=== PATIENT | female | born 1995 | race African-American/Black ===

== ENCOUNTER 2016-08-12 15:17 | Inpatient (IN) ==
[2016-08-12] MEDS ORDERED: SODIUM CHLORIDE 0.9% 1,000 ML IV STA (16:14)
[2016-08-12] MEDS ORDERED: HYDROmorphone 2 MG/1 ML VIAL IV STA (16:14)
[2016-08-12] MEDS ORDERED: ONDANSETRON 4 MG/2 ML VIAL ONE (16:20)
[2016-08-12] MEDS ORDERED: HYDROmorphone 2 MG/1 ML VIAL ONE (16:21)
[2016-08-12 16:22] LABS: Basophils # 0.1 10*3/uL (0.0-0.2); Basophils % 0.7 % (0.0-0.8); Eosinophils # 0.3 10*3/uL (0.0-0.87); Eosinophils % 2.1 % (0.00-10.9); Hemoglobin 6.6 GM/DL (12.0-16.0); Immature Granulocytes % 0.4 %; Immature Granulocytes Absolute 0.05 #; Lymphocytes # 4.3 10*3/uL (1.4-4.0); Lymphocytes % 31.8 % (21.3-54.2); Mean Corpuscular HGB Conc 34.7 GM/DL (32-36); Mean Corpuscular Hemoglobin 34 PG (27-34); Mean Corpuscular Volume 96.9 FL (87-102); Mean Platelet Volume 9.8 FL (9.6-12.0); Monocytes # 1.4 10*3/uL (0.11-0.8); Neutrophils # 7.5 10*3/uL (1.4-7.4); Platelet Count 575 T/CUMM (130-400); Red Blood Count 1.96 MC/CUMM (3.8-5.5); Red Cell Distribution Width 21.2 % (9.3-17.3); White Blood Count 13.6 T/CUMM (4-12)
[2016-08-12 16:40] LABS: Albumin 3.6 G/DL (3.4-5.0); Bilirubin,Direct 0.5 MG/DL (0.0-0.20); Bilirubin,Total 7.5 MG/DL (0.2-1.0); Calcium 8.7 MG/DL (8.5-10.1); Osmolality,Calculated 287.6 MOS/KG (273-304); Potassium 4.7 MMOL/L (3.5-5.1); Total Protein 7.3 G/DL (6.4-8.3)
[2016-08-12 16:44] LABS: Apearance,Urine CLEAR (Clear); Bilirubin,Urine Negative (Negative); Blood, Urine Small mg/dL (Negative); Glucose,Urine (UA) Negative (Negative); Ketones,Urine Negative (Negative); Nitrite,Urine Negative (Negative); Protein,Urine Negative; RBC,Urine 1 /HPF (0-4); Squamous Epithelial Cell,Urine Occasional /HPF (0-10); Urine Color Yellow (Yellow); Urine Specific Gravity 1.009 (1.001-1.035); WBC,Urine 2 /HPF (0-6)
--- NOTE | 2016-08-12 17:50 | Emergency Department Note ---
Andrew Harrison Jamie, am scribing for, and in the presence of, Man Buckner MD 16:10. Dudley Harrison Doug C, MD, personally performed the services described in this documentation, ascribed by Clemente Morales in my presence, and it is both accurate and complete [id number] . Arrival - Arrival Chief Complaint: Sickle Cell Stated Complaint: SICKLE CELL ANEMIA ED Nursing Triage Note: c/o pain all over/scc that started Saturday. hx:SC Mode of Arrival: Ambulatory Limitations: No Limitations Source: Patient, RN Notes Reviewed - History of Present Illness HPI Narrative: Patient is a 20-year-old black female who has sickle cell anemia who presents emergency room complaining of lower extremity pain that started 3 days ago. Patient states she has not had any fever or chills. She denies nausea, vomiting or diarrhea. She does not have any abdominal pain, cough, shortness of breath or wheezing. She has not had any bleeding. She states her pain is typical of her prior painful crisises. Patient denies any joint swelling in none of her joints are hot to the touch. Onset (ago): day(s) (2) Consistency: constant Severity: moderate Allergies/Adverse Reactions: Allergies Allergy/AdvReac Type Severity Reaction Status Date / Time diphenhydramine Allergy ITCHING Verified 05/07/16 15:57 [From Benadryl] morphine Allergy SHORTNESS Verified 05/07/16 15:57 OF BREATH ondansetron Allergy HIVES Verified 05/07/16 15:57 [From Zofran (as hydrochloride)] Home Medications: Home Medications Medication Instructions Recorded Confirmed Type Folic Acid Tab 1 mg PO DAILY tablet 11/17/15 08/12/16 Rx Hydroxyurea [Hydrea] 500 mg PO BID #60 capsule 02/13/16 08/12/16 Rx Docusate/Senna 50-8.6 [Senokot S] 2 tablet PO DAILY PRN #7 tablet 07/01/1608/12 Rx Oxycodone HCl/Acetaminophen 1 each PO Q6H PRN #20 tablet 07/01/16 08/12/16 Rx [Percocet 10-325 mg Tablet] Ergocalciferol [Drisdol] 50,000 unit PO WE 08/12/16 08/12/16 History Review of System - Review of System 12 point system: reviewed and no additional remarkable complaints except as stated - Review of System Constitutional: Absent: chills, diaphoresis, fever, weakness Eyes: Absent: vision change Respiratory: Absent: cough Cardiovascular: Absent: chest pain Gastrointestinal: Absent: abdominal pain, nausea, vomiting, diarrhea, constipation Musculoskeletal: Present: leg pain (Bilateral), other (Bilateral hip pain). Absent: joint swelling Skin: Absent: rash, change in color Neurological: Absent: headache, weakness, numbness, confusion Hematological/Lymphatic: Absent: easy bleeding, easy bruising Medical,Surgical,& Family Hx - Medical History Psychological: History of: Anxiety Disorders, Depression No history of: ADHD, Behavior Problems, Bipolar Disorder, Previous Suicide Attempt, Psychiatric/Substance Abuse Tx, Schizophrenia, Violent Behavior, Psychiatric Problems HEENT: History of: Ear Problem (Ear infection left ear) Endocrine: History of: Endocrine Problems (amenorrhea) Rheumatology: History of;: Psoriasis (itching) No history of;: Fibromyalgia, Gout, Myasthenia Gravis, Rheumatoid Arthritis, Rheumatological Problems Respiratory: History of: Bronchitis No history of: Asthma, COPD, Intubation, Obstructive Sleep Apnea, Pulmonary Embolism, Pulmonary Hypertension, Pneumonia, Lung Cancer, Respiratory Problems ( history of remote acute lung syndrome) Gastrointestinal: History of: GI Problems (HX OF SEVERE CONSTIPATION, OBSTIPATION NOW. DUE TO HYDROCODONE.) No history of: Bowel Obstruction, Clostridium Difficile, Crohn's Disease, Diverticulitis/ Diverticulosis, Esophageal Varices, GERD, Gastrointestinal Bleed , Hemorrhoids, Hematochezia, Hepatitis, Liver Problems, Pancreatitis, Polyps, Ulcerative Colitis, Gastrointestinal Cancer Musculoskeletal: History of: Musculoskeletal Problems (SEVERE PAIN IN SKELETAL PART OF HIPS, LEGS, BACK, CHEST.) No history of: Amputation, Back/Neck Problems, Degenerative Disk Disease, Herniated Disk, Osteoporosis, Musculoskeletal Cancer Hematology: History of: Anemia, Sickle Cell Disease No history of: Blood Transfusion Reaction, Bleeding Problems, Clotting Problems, Hematologic Cancer, Blood Disorders Reproductive: History of: Reproductive Problems - Surgical History Thoracic Surgeries: Patient denies;: Organ Transplant, Lobectomy Neurologic Surgeries: Patient denies: Neurologic Surgery HEENT Surgeries: Patient denies: Eye Surgery, Thyroid Surgery, Tonsilectomy & Adenoidectomy Abdominal Surgeries: Surgical HX of: Abdominal Surgery, Cholecystectomy (jan 04, 2006) Patient denies: Appendectomy, Colonoscopy, Gastric Bypass Surgery, EGD, Hernia Repair Reproductive Surgeries: Patient denies;: Breast Surgery, Section, Dilation and Curettage, Gynecologic Surgery, Hysterectomy, Tubal Ligation Orthopedic Surgeries: Patient denies;: Implanted Devices, Orthopedic Surgery, Spinal Surgery, Total Hip Replacement, Total Knee Replacement - Family History Family History: Reports;: Family Cancer (maternal grandmother lung) Denies;: Family Anesthesia Reaction, Family Diabetes, Family Heart Disease, Family Hypertension, Family Psychiatric Problems, Family Stroke - Social History Smoking Status: Never smoker Frequency of Alcohol Use: None Type of Drug Use: None Exam Vital Signs: Vital Signs Temperature 98.4 F 08/12/16 16:15 Pulse Rate 69 08/12/16 17:15 Respiratory Rate 18 08/12/16 17:15 Blood Pressure 94/57 08/12/16 17:15 O2 Sat by Pulse Oximetry 100 08/12/16 17:15 - General General appearance: alert, in no apparent distress - Head Head exam: Present: atraumatic, normocephalic, normal inspection - Eye Eye exam: Present: normal appearance, PERRL, EOMI, scleral icterus - ENT ENT exam: Present: normal oropharynx, mucous membranes moist. Absent: normal exam - Neck Neck exam: Present: normal inspection, full ROM - Chest Chest inspection: Present: normal inspection, symmetric chest wall rise - Respiratory Respiratory exam: Present: normal lung sounds bilaterally - Cardiovascular Cardiovascular exam: Present: regular rate, normal rhythm, tachycardia, normal heart sounds - Abdominal Exam Abdominal exam: Present: soft, normal bowel sounds - Extremities Exam Extremities exam: Present: normal inspection, full ROM - Neurological Exam Neurological exam: Present: alert, oriented X3, CN II-XII intact. Absent: motor sensory deficit - Psychiatric Psychiatric exam: Present: normal affect, normal mood - Skin Skin exam: Present: warm, dry, intact, normal color Course Course Narrative: Patient's clinical presentation, laboratory and radiographic findings were discussed with Patrizia who is covering the hospitalist service. She will see the patient in the emergency room and evaluate for admission. Results - Labs CBC & BMP: 08/12/16 16:12 08/12/16 16:12 Lab Results: I have reviewed the patients labs Disposition Clinical Impression: Sickle cell crisis Case discussed with: patient Disposition: Still a Patient Condition: Guarded Time of Disposition: 17:49
[2016-08-12] MEDS ORDERED: HYDROmorphone 2 MG/1 ML VIAL IV PRN (17:53)
--- NOTE | 2016-08-12 18:01 | XRay Report ---
Portable chest Date: 08/12/2016 Clinical history: Shortness of breath Comparison: 06/24/2016 Technique: Portable AP sitting chest Findings: The heart is normal in size. Expiratory chest. Calcified granulomata with chronic scarring. Minimal atelectasis/infiltration in the left mid to lower lung zone. Minimal levoscoliosis with stable mediastinum. Prior cholecystectomy. Impression: Old healed granulomatous disease with chronic scarring. Minimal atelectasis/infiltration in the left mid to lower lung zone. Prior cholecystectomy. PROCEDURE INTERPRETED AT [facility] DEPARTMENT OF RADIOLOGY Final Report Signed by: Dr. Nena Joseph
--- NOTE | 2016-08-12 18:13 | Hospitalist History & Physical ---
<Bria Pascual M - Last Filed: 08/12/16 18:19> Assessment and Plan - Time spent with patient Time spent with patient: Less than 30 minutes (1) Anemia of chronic disease Status: Chronic Current Visit: No (2) Acute sickle cell crisis Status: Resolved Assessment and plan: 20AAF admitted by hospitalist w acute sickle cell crisis. she rec'd 1L bolus in ED so will maintain w ivf at 125. HH is low so will transfuse 1 unit of PRBC. pain control w demerol and dilaudid prn. pt is requesting to move her tobacco conditioner from [place] to [place] and is requesting we set up an appt w dr swain for outpatient. discussed w dr weaver. Current Visit: No (3) Hypernatremia Status: Resolved Current Visit: No (4) Leukocytosis Status: Acute Current Visit: No History of Present Illness Chief complaint: pain History of present illness: 20AAF w history of sickle cell anemia presenting to ED w sickle cell crisis. pt states she is getting to the point where she hurts in her legs and hips almost constantly. she was just here last in jul w crisis. pt denies any SOB, CP, abdominal pain, N/V or D. she is leaving for spring break on sat and wants to make sure she is dc by . she has a tobacco conditioner in [place] that she has follow up w on september 03. she wants to find a local tobacco conditioner and is requesting to see dr swain as an outpatient. pt is hypotensive w systolic in the 90s, wbc mildly elevated at 13.6, HH low 11/19, Na146, LFTs elevated as expected, and UA is neg. the hospitalist has been asked to admit pt for management. Home Medications Medication Instructions Recorded Confirmed Type Folic Acid Tab 1 mg PO DAILY tablet 11/17/15 08/12/16 Rx Hydroxyurea [Hydrea] 500 mg PO BID #60 capsule 02/13/16 08/12/16 Rx Docusate/Senna 50-8.6 [Senokot S] 2 tablet PO DAILY PRN #7 tablet 07/01/1608/12 Rx Oxycodone HCl/Acetaminophen 1 each PO Q6H PRN #20 tablet 07/01/16 08/12/16 Rx [Percocet 10-325 mg Tablet] Ergocalciferol [Drisdol] 50,000 unit PO WE 08/12/16 08/12/16 History Allergies Allergy/AdvReac Type Severity Reaction Status Date / Time diphenhydramine Allergy ITCHING Verified 05/07/16 15:57 [From Benadryl] morphine Allergy SHORTNESS Verified 05/07/16 15:57 OF BREATH ondansetron Allergy HIVES Verified 05/07/16 15:57 [From Zofran (as hydrochloride)] Medical,Surgical,& Family Hx - Medical History Psychological: History of: Anxiety Disorders, Depression No history of: ADHD, Behavior Problems, Bipolar Disorder, Previous Suicide Attempt, Psychiatric/Substance Abuse Tx, Schizophrenia, Violent Behavior, Psychiatric Problems HEENT: History of: Ear Problem (Ear infection left ear) Endocrine: History of: Endocrine Problems (amenorrhea) Rheumatology: History of;: Psoriasis (itching) No history of;: Fibromyalgia, Gout, Myasthenia Gravis, Rheumatoid Arthritis, Rheumatological Problems Respiratory: History of: Bronchitis No history of: Asthma, COPD, Intubation, Obstructive Sleep Apnea, Pulmonary Embolism, Pulmonary Hypertension, Pneumonia, Lung Cancer, Respiratory Problems ( history of remote acute lung syndrome) Gastrointestinal: History of: GI Problems (HX OF SEVERE CONSTIPATION, OBSTIPATION NOW. DUE TO HYDROCODONE.) No history of: Bowel Obstruction, Clostridium Difficile, Crohn's Disease, Diverticulitis/ Diverticulosis, Esophageal Varices, GERD, Gastrointestinal Bleed , Hemorrhoids, Hematochezia, Hepatitis, Liver Problems, Pancreatitis, Polyps, Ulcerative Colitis, Gastrointestinal Cancer Musculoskeletal: History of: Musculoskeletal Problems (SEVERE PAIN IN SKELETAL PART OF HIPS, LEGS, BACK, CHEST.) No history of: Amputation, Back/Neck Problems, Degenerative Disk Disease, Herniated Disk, Osteoporosis, Musculoskeletal Cancer Hematology: History of: Anemia, Sickle Cell Disease No history of: Blood Transfusion Reaction, Bleeding Problems, Clotting Problems, Hematologic Cancer, Blood Disorders Reproductive: History of: Reproductive Problems - Surgical History Thoracic Surgeries: Patient denies;: Organ Transplant, Lobectomy Neurologic Surgeries: Patient denies: Neurologic Surgery HEENT Surgeries: Patient denies: Eye Surgery, Thyroid Surgery, Tonsilectomy & Adenoidectomy Abdominal Surgeries: Surgical HX of: Abdominal Surgery, Cholecystectomy (jan 04, 2006) Patient denies: Appendectomy, Colonoscopy, Gastric Bypass Surgery, EGD, Hernia Repair Reproductive Surgeries: Patient denies;: Breast Surgery, Section, Dilation and Curettage, Gynecologic Surgery, Hysterectomy, Tubal Ligation Orthopedic Surgeries: Patient denies;: Implanted Devices, Orthopedic Surgery, Spinal Surgery, Total Hip Replacement, Total Knee Replacement - Family History Family History: Reports;: Family Cancer (maternal grandmother lung) Denies;: Family Anesthesia Reaction, Family Diabetes, Family Heart Disease, Family Hypertension, Family Psychiatric Problems, Family Stroke - Social History Smoking Status: Never smoker Frequency of Alcohol Use: None Type of Drug Use: None Review of systems: a complete 10 system ROS was obtained and pertinent negatives and positives are in hpi. Exam - Constitutional Vitals: Period Temp Pulse Resp BP Sys/[place]ura Pulse Ox Last 24 Hr 98.4 F-98.4 F 69-82 18-19 91-108/56-58 93-100 Exam: Constitutional System: Mild distress. No tremulousness. Head: Normocephalic, atraumatic. Ears, Nose and Throat System: No evidence of Otitis or Mastoiditis. No epistaxis or discharge Eyes System: Pupils equal, round, and reactive. Extraocular muscles intact. Neck: Supple, without adenopathy, No jugular venous distention. No thyromegaly, neck mass, or prior surgery apparent. Respiratory System: Chest clear to auscultation. Cardiovascular System: Heart with regular rate and rhythm. No murmur. GI System: Abdomen soft, nontender. Normo active bowel sounds present. Musculoskeletal System: limbs with no pedal edema. Full distal pulses. Neurological System: No discernable sensory deficit. No aphasia Psychiatric System: Conversation is rational Results - Labs CBC & BMP: 08/12/16 16:12 08/12/16 16:12 Lab Results: I have reviewed the past 24 hour labs - Diagnostic Findings Procedure: Chest x-ray: image reviewed by me, report reviewed by me (normal) <Sami Weaver Jr. - Last Filed: 08/12/16 19:09> Assessment and Plan (1) Anemia of chronic disease Status: Chronic Current Visit: No (2) Acute sickle cell crisis Status: Resolved Assessment and plan: At this time will continue with medical management for this patient. Pain medicine as stated above. We will get a reticulocyte count. Will ask for hematology consult. Current Visit: No (3) Sickle cell anemia with pain Status: Chronic Current Visit: No (4) Dehydration Status: Acute Assessment and plan: Continue with IV fluids. Normal saline 1 25 cc an hour. 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 Patient states the symptoms continue to work worsen despite pain medications. No shortness of breath or chest pain. No fevers or chills. Of note, patient's hemoglobin was noted to be 6. Her LFTs have been elevated. She has follow-up with her tobacco conditioner in [place] in September. - Constitutional Constitutional: Absent: lethargy Exam - Constitutional Vitals: Period Temp Pulse Resp BP Sys/Ventura Pulse Ox Last 24 Hr 76-79 20-20 101-109/61-69 100-100 - Head Head exam: Present: normal inspection - Eye Eye exam: Present: scleral icterus Pupils: Present: TREY - Respiratory Respiratory exam: Present: clear to auscultation bilaterally - Cardiovascular Cardiovascular exam: Present: regular rate and rhythm - GI/Abdominal GI/Abdominal exam: Present: normal bowel sounds - Extremities Exam Extremities exam: Present: full ROM - Neurological Exam Neurological exam: Present: alert, oriented X3, CN II-XII intact - Skin Skin exam: Present: cyanosis (Noted in hands, nailbeds) Results - Labs CBC & BMP: 08/12/16 16:12 08/12/16 16:12
[2016-08-12] MEDS ORDERED: SODIUM CHLORIDE 0.9% 250 ML IV PRN (18:22)
[2016-08-12] MEDS ORDERED: DOCUSATE/SENNA 50-8.6 MG TABLET PO PRN (19:01)
[2016-08-12] MEDS ORDERED: MEPERIDINE 50 MG TABLET PO PRN ×2 (19:01)
[2016-08-12] MEDS ORDERED: PROMETHAZINE 25 MG/1 ML VIAL IM PRN (19:01)
[2016-08-12] MEDS ORDERED: HYDROmorphone 2 MG/1 ML VIAL IV SCH (19:01)
[2016-08-12] MEDS: SODIUM CHLORIDE 0.45% 1,000 ML IV SCH (19:22)
[2016-08-12] MEDS: HYDROXYUREA 500 MG CAPSULE PO SCH (21:35)
[2016-08-12] MEDS: HYDROmorphone 2 MG/1 ML VIAL IV PRN (21:36)
[2016-08-13] MEDS: HYDROmorphone 2 MG/1 ML VIAL IV PRN ×8 (00:53→22:43)
[2016-08-13] MEDS: SODIUM CHLORIDE 0.45% 1,000 ML IV SCH ×5 (00:54→21:39)
[2016-08-13] MEDS: FOLIC ACID 1 MG TABLET PO SCH (08:16)
[2016-08-13] MEDS: HYDROXYUREA 500 MG CAPSULE PO SCH (08:16)
[2016-08-13] MEDS: PANTOPRAZOLE 40 MG TABLET PO SCH (08:16)
[2016-08-13 08:56] LABS: Bilirubin,Total 6.6 MG/DL (0.2-1.0); Calcium 8.6 MG/DL (8.5-10.1); Magnesium 1.8 MG/DL (1.8-2.4); Potassium 4.8 MMOL/L (3.5-5.1); Thyroid Stimulating Hormone 1.52 uIU/ml (0.358-3.74); Total Protein 6.3 G/DL (6.4-8.3)
[2016-08-13] MEDS ORDERED: hydrOXYzine HCL 25 MG TABLET PO ONE (19:40)
[2016-08-13] MEDS ORDERED: methylPREDNISolone SOD SUC 125 MG/2 ML VIAL IV ONE (19:40)
[2016-08-13] MEDS ORDERED: FAMOTIDINE 20 MG/2 ML VIAL IV ONE (19:50)
[2016-08-13] MEDS ORDERED: oxyCODONE/ACETAMINOPHEN 5-325 MG TABLET PO PRN (20:02)
--- NOTE | 2016-08-13 20:10 | Hospitalist Progress Note ---
Assessment and Plan (1) Severe anemia Status: Acute Assessment and plan: attempted blood transfusion on hold due to allergic reaction Current Visit: No (2) Sickle cell pain crisis Status: Acute Assessment and plan: cont dilaudid IV Current Visit: No Hospitalist: Subjective Interval history: developed allergic reaction to blood transfusion. Not seen by Dr Loredo. She is having chest tightness and has welts on her face and arms and back. Cannot take benadryl. Gave her solumedrol 125 mg IV, pepcid 20 mg IV, atarax po Exam - Constitutional Vitals: Period Temp Pulse Resp BP Sys/Ventura Pulse Ox Last 24 Hr 97 F-98.6 F 61-103 18-20 89-119/56-75 97-100 Exam: Heart Rate-[RRR] Lungs-[CTAB] GI-[+bs soft, NT] Ext-[no edema] skin welts on face and arms and legs Neuro [Motor 5/5], [alert and oriented times 3] psych [normal mood and affect] General [mild acute distress] Results - Labs CBC & BMP: 08/12/16 16:12 08/13/16 08:15 Lab Results: I have reviewed the past 24 hour labs Quality Measures - VTE Contraindication to Pharmacological VTE Prophylaxis: High Risk of Bleeding
[2016-08-13 23:55] LABS: Bilirubin,Total 7.3 MG/DL (0.2-1.0)
[2016-08-14] MEDS: HYDROXYUREA 500 MG CAPSULE PO SCH ×2 (00:15→08:28)
[2016-08-14] MEDS: HYDROmorphone 2 MG/1 ML VIAL IV PRN ×5 (00:45→15:47)
[2016-08-14] MEDS: SODIUM CHLORIDE 0.45% 1,000 ML IV SCH ×3 (02:45→12:35)
[2016-08-14 05:34] LABS: Basophils % 0.1 % (0.0-0.8); Hematocrit 20.8 VOL% (35.7-47.0); Hemoglobin 7.3 GM/DL (12.0-16.0); Immature Granulocytes % 0.3 %; Immature Granulocytes Absolute 0.04 #; Lymphocytes # 1.2 10*3/uL (1.4-4.0); Lymphocytes % 10.1 % (21.3-54.2); Mean Corpuscular HGB Conc 35.1 GM/DL (32-36); Mean Corpuscular Hemoglobin 32 PG (27-34); Mean Corpuscular Volume 91.6 FL (87-102); Mean Platelet Volume 10.2 FL (9.6-12.0); Monocytes # 0.1 10*3/uL (0.11-0.8); Monocytes % 0.7 % (1.7-12.7); Neutrophils # 10.3 10*3/uL (1.4-7.4); Neutrophils % 88.8 % (38.7-73.9); Platelet Count 486 T/CUMM (130-400); Red Blood Count 2.27 MC/CUMM (3.8-5.5); Red Cell Distribution Width 20.5 % (9.3-17.3); White Blood Count 11.6 T/CUMM (4-12)
[2016-08-14] MEDS: FOLIC ACID 1 MG TABLET PO SCH (08:28)
[2016-08-14] MEDS: PANTOPRAZOLE 40 MG TABLET PO SCH (08:28)
[2016-08-14] MEDS ORDERED: ACETAMINOPHEN 325 MG TABLET PO ONE (09:05)
[2016-08-14] MEDS ORDERED: methylPREDNISolone SOD SUC 125 MG/2 ML VIAL IV ONE (09:05)
[2016-08-14] MEDS ORDERED: hydrOXYzine HCL 25 MG TABLET PO ONE (09:06)
[2016-08-14] MEDS ORDERED: FAMOTIDINE 20 MG/2 ML VIAL IV ONE (09:06)
--- NOTE | 2016-08-14 09:09 | Discharge Summary ---
Hospital Course - Hospital Course Hospital Course: 20 -[place] female with known history of sickle cell presents in sickle cell crisis. Patient's hemoglobin on admission was 6.3. Patient received 1 unit of packed red blood cells last night and during the infusion developed an allergic reaction with welts on her face, arms and back. Welts quickly resolved with 125 mg of IV Solu-Medrol and IV Pepcid. Hgb today was 7.3 and she wants they additional unit of prbc. We tested the second unit of blood and blood bank thinks it should be fine. We will premedicate her and give her the her second unit of packed red blood cells. Patient wants to go home as she has a trip planned to [place] with her family. Discharge home after second unit. - Time spent with patient Time with patient DS: Less than 30 minutes Diagnosis - Discharge Diagnosis (1) Severe anemia Status: Acute (2) Sickle cell pain crisis Status: Acute Discharge Plan - Discharge Data Disposition: Disch To Home/Self Care Condition at Discharge: Stable Discharge Diet: regular diet Activity: resume usual activities as tolerated Hygiene: no restrictions Weight Bearing at Discharge: full weight bearing - Discharge Medications New Hydroxyurea [Hydrea] 500 mg PO BID capsule Continue Folic Acid Tab 1 mg PO DAILY tablet Ergocalciferol [Drisdol] 50,000 unit PO WE Oxycodone HCl/Acetaminophen [Percocet 10-325 mg Tablet] 1 each PO Q6H PRN # 30 tablet PRN Reason: severe pain Docusate/Senna 50-8.6 [Senokot S] 2 tablet PO DAILY PRN #7 tablet PRN Reason: Constipation Discontinued Hydroxyurea [Hydrea] 500 mg PO BID #60 capsule - Follow Up or Referral - Forms/Instructions Exam - Constitutional Vitals: Period Temp Pulse Resp BP Sys/Ventura Pulse Ox Last 24 Hr 97 F-98.6 F 61-103 18-20 89-142/53-75 94-100 General appearance: normal weight, no acute distress - Respiratory Respiratory exam: Present: clear to auscultation bilaterally - Cardiovascular Cardiovascular exam: Absent: regular rate and rhythm, systolic murmur - GI/Abdominal GI/Abdominal exam: Present: normal bowel sounds, soft. Absent: rebound - Extremities Exam Extremities exam: Absent: edema - Neurological Exam Neurological exam: Present: alert, oriented X3 Discharge Results Procedures and tests throughout hospitalization: Pending Orders 08/12/16 Red Blood Cells Leuko Red Stat Labs on day of discharge: Labs from last 24 hours 08/14/16 08/13/16 08/13/16 04:33 22:16 22:16 WBC 11.6 RBC 2.27 L Hgb 7.3 L Hct 20.8 L MCV 91.6 MCH 32 MCHC 35.1 RDW 20.5 H Plt Count 486 H MPV 10.2 Neut % (Auto) 88.8 H Lymph % (Auto) 10.1 L [place] % (Auto) 0.7 L Eos % (Auto) 0.0 Baso % (Auto) 0.1 Neut # (Auto) 10.3 H Lymph # (Auto) 1.2 L [place] # (Auto) 0.1 L Eos # (Auto) 0.0 Baso # (Auto) 0.0 Immature Gran % 0.3 Nucleated RBC % 1.7 Immature Gran # 0.04 Nucleated RBCs # 0.20 BUN 5 L Total Bilirubin 7.30 H Blood Type Antibody Screen Crossmatch Pre-Trans JENNI Poly Weak pos H Post-Trans JENNI Poly Weak pos H Blood Bank Comment 08/13/16 08/12/16 22:16 Unknown WBC RBC Hgb Hct MCV MCH MCHC RDW Plt Count MPV Neut % (Auto) Lymph % (Auto) [place] % (Auto) Eos % (Auto) Baso % (Auto) Neut # (Auto) Lymph # (Auto) [place] # (Auto) Eos # (Auto) Baso # (Auto) Immature Gran % Nucleated RBC % Immature Gran # Nucleated RBCs # BUN Total Bilirubin Blood Type Cancelled Antibody Screen Cancelled Crossmatch See Detail Pre-Trans JENNI Poly Cancelled Post-Trans JENNI Poly Cancelled Blood Bank Comment Cancelled DS: Provider Date of admission: 08/12/16 17:46 Primary care physician: . No PCP Attending physician on admission: Emanuel Khan MD Consults: 08/12/16 20:02 Consult to Pastoral Services [CONS] Routine Comment: Pastoral Screen: Request Family Law Legal Assistant Visit Pastoral Screen Source of Request: Other Other Source Requesting: Nursing Discharging clinician: Ana Santamaria MD
--- NOTE | 2016-08-14 10:49 | Physician Query Form ---
CLICK EDIT DOCUMENT TO SELECT QUERY ANSWER --> OK --> SIGN Pearl Mckenna RN Clinical Line Up Machine Operator W) [phone] (f) [phone] [email or web address] PROVIDERS: Make your selection(s) from the choices in EACH section by typing an "x" and enter comments in the comment section. Please use your independent medical judgment in providing your response. This request does not imply that any particular answer is desired or expected. CLINICAL INDICATORS: (Providers should not edit this section) Height: 5'2" Weight: 90 Phone Specialist BMI: 16.5 Nutritional supplements: Solar Photovoltaic Electrician notes: UNDERWEIGHT Other clinical notes: Based on the above, which following choice most accurately represents the patient's nutritional status? ( ) Malnutrition ( ) mild ( ) moderate ( ) severe ( ) Protein calorie malnutrition ( ) mild ( ) moderate ( ) severe ( ) Emaciation due to malnutrition ( ) Nutritional marasmus ( ) Cachexia ( x) Underweight ( ) No nutritional deficiency ( ) Other, please specify: ( ) Clinically unable to determine Mild Malnutrition (BMI < 18.5, % Normal Body Weight 85-95%) Moderate Malnutrition (BMI < 17, % Normal Body Weight 75-85%) Severe Malnutrition (BMI < 16, % Normal Body Weight < 75%) Source: [place] COMMENTS: Use of terms such as suspected, likely, or probable (associated with a specific diagnosis that is being evaluated, monitored, or treated as if it exists) are acceptable and can be restated in the discharge summary if not ruled out. MTDD
[2016-08-14 17:01] VITALS: BP 105/63
[2016-08-15] MEDS ORDERED: ERGOCALCIFEROL 50,000 UNIT CAPSULE PO SCH (09:00)
== END 2016-08-14 17:00 | disposition home or self-care (01) | DRG 812 ==
LOC: N.ED 15:17 → SUATTDRO 17:46 → N.EDINP 17:46 → N.4E 18:37
PROVIDERS: ADMIT Internal Medicine; ATTEND Internal Medicine

== ENCOUNTER 2016-08-27 19:03 | Inpatient (IN) ==
[2016-08-27 20:17] LABS: Basophils # 0.1 10*3/uL (0.0-0.2); Basophils % 0.5 % (0.0-0.8); Eosinophils # 0.4 10*3/uL (0.0-0.87); Eosinophils % 2.7 % (0.00-10.9); Immature Granulocytes % 0.3 %; Immature Granulocytes Absolute 0.05 #; Lymphocytes % 39.1 % (21.3-54.2); Mean Corpuscular HGB Conc 34.4 GM/DL (32-36); Mean Corpuscular Hemoglobin 32 PG (27-34); Mean Corpuscular Volume 92.8 FL (87-102); Monocytes # 1.9 10*3/uL (0.11-0.8); Monocytes % 12.1 % (1.7-12.7); NRBC # 0.15 10*3/uL; Neutrophils % 45.3 % (38.7-73.9); Platelet Count 490 T/CUMM (130-400); Red Blood Count 1.94 MC/CUMM (3.8-5.5); Red Cell Distribution Width 18.4 % (9.3-17.3); White Blood Count 15.4 T/CUMM (4-12)
[2016-08-27 20:21] LABS: Hemoglobin 6.2 GM/DL (12.0-16.0)
[2016-08-27 20:34] LABS: Calcium 8.5 MG/DL (8.5-10.1); Osmolality,Calculated 291.3 MOS/KG (273-304); Potassium 4.3 MMOL/L (3.5-5.1)
[2016-08-27] MEDS ORDERED: SODIUM CHLORIDE 0.9% 1,000 ML IV STA (20:45)
--- NOTE | 2016-08-27 20:51 | Emergency Department Note ---
Mahendra Harrison Brittany, am scribing for, and in the presence of, Stu Le M.D. 19:50. Rey Harrison Howard T, M.D., personally performed the services described in this documentation, ascribed by Chantale Mccray in my presence, and it is both accurate and complete 032 . Arrival - Arrival Chief Complaint: Sickle Cell Stated Complaint: sickle cell pain ED Nursing Triage Note: C/O Sickle cell pain "everywhere" Onset yesterday. Reports taking meds without relief. Denies fever at home. Mode of Arrival: Ambulatory Limitations: No Limitations Source: Patient, RN Notes Reviewed Time Seen by Provider: 08/27/16 19:37 - History of Present Illness HPI Narrative: Patient is a 21 y/o black female presenting to the ED with c/o Sickle Cell Crisis with an onset of yesterday. Patient states that she has been having diffuse pain all over her body since yesterday that is consistent with usual Sickle Cell Crisis. She notes having some chest pain and shortness of breath while at work today, that is better as of now. She denies any recent injuries, weakness, rash, or fever. Patient reports eating and drinking normally. Has been taking Hydroxurea and Folic Acid as prescribed. For pain patient has been taking Advil and Percocet with no relief. Patient has no other complaint/pain in the ED at this time. Onset (ago): day(s) (1) Consistency: constant Severity: moderate Severity scale (1-10): 6 Quality: aching Date of Last Menstrual Period: Jul 15 Allergies/Adverse Reactions: Allergies Allergy/AdvReac Type Severity Reaction Status Date / Time diphenhydramine Allergy ITCHING Verified 05/07/16 15:57 [From Benadryl] morphine Allergy SHORTNESS Verified 05/07/16 15:57 OF BREATH ondansetron Allergy HIVES Verified 05/07/16 15:57 [From Zofran (as hydrochloride)] Home Medications: Home Medications Medication Instructions Recorded Confirmed Type Folic Acid Tab 1 mg PO DAILY tablet 11/17/15 08/27/16 Rx Docusate/Senna 50-8.6 [Senokot S] 2 tablet PO DAILY PRN #7 tablet 07/01/1608/27 Rx Ergocalciferol [Drisdol] 50,000 unit PO WE 08/12/16 08/27/16 History Hydroxyurea [Hydrea] 500 mg PO BID capsule 08/14/16 08/27/16 Rx Oxycodone HCl/Acetaminophen 1 each PO Q6H PRN #30 tablet 08/14/16 08/27/16 Rx [Percocet 10-325 mg Tablet] Review of System - Review of System 12 point system: reviewed and no additional remarkable complaints except as stated - Review of System Constitutional: Present: as per HPI Cardiovascular: Present: chest pain Gastrointestinal: Present: abdominal pain Musculoskeletal: Present: as per HPI, arm pain, back pain, leg pain, neck pain Medical,Surgical,& Family Hx - Medical History Psychological: History of: Anxiety Disorders, Depression No history of: ADHD, Behavior Problems, Bipolar Disorder, Previous Suicide Attempt, Psychiatric/Substance Abuse Tx, Schizophrenia, Violent Behavior, Psychiatric Problems HEENT: History of: Ear Problem (Ear infection left ear) Endocrine: History of: Endocrine Problems (amenorrhea) Rheumatology: History of;: Psoriasis (itching) No history of;: Fibromyalgia, Gout, Myasthenia Gravis, Rheumatoid Arthritis, Rheumatological Problems Respiratory: History of: Bronchitis No history of: Asthma, COPD, Intubation, Obstructive Sleep Apnea, Pulmonary Embolism, Pulmonary Hypertension, Pneumonia, Lung Cancer, Respiratory Problems ( history of remote acute lung syndrome) Gastrointestinal: History of: GI Problems (HX OF SEVERE CONSTIPATION, OBSTIPATION NOW. DUE TO HYDROCODONE.) No history of: Bowel Obstruction, Clostridium Difficile, Crohn's Disease, Diverticulitis/ Diverticulosis, Esophageal Varices, GERD, Gastrointestinal Bleed , Hemorrhoids, Hematochezia, Hepatitis, Liver Problems, Pancreatitis, Polyps, Ulcerative Colitis, Gastrointestinal Cancer Musculoskeletal: History of: Musculoskeletal Problems (SEVERE PAIN IN SKELETAL PART OF HIPS, LEGS, BACK, CHEST.) No history of: Amputation, Back/Neck Problems, Degenerative Disk Disease, Herniated Disk, Osteoporosis, Musculoskeletal Cancer Hematology: History of: Anemia, Sickle Cell Disease No history of: Blood Transfusion Reaction, Bleeding Problems, Clotting Problems, Hematologic Cancer, Blood Disorders Reproductive: History of: Reproductive Problems - Surgical History Thoracic Surgeries: Patient denies;: Organ Transplant, Lobectomy Neurologic Surgeries: Patient denies: Neurologic Surgery HEENT Surgeries: Patient denies: Eye Surgery, Thyroid Surgery, Tonsilectomy & Adenoidectomy Abdominal Surgeries: Surgical HX of: Abdominal Surgery, Cholecystectomy (jan 04, 2006) Patient denies: Appendectomy, Colonoscopy, Gastric Bypass Surgery, EGD, Hernia Repair Reproductive Surgeries: Patient denies;: Breast Surgery, Section, Dilation and Curettage, Gynecologic Surgery, Hysterectomy, Tubal Ligation Orthopedic Surgeries: Patient denies;: Implanted Devices, Orthopedic Surgery, Spinal Surgery, Total Hip Replacement, Total Knee Replacement - Family History Family History: Reports;: Family Cancer (maternal grandmother lung) Denies;: Family Anesthesia Reaction, Family Diabetes, Family Heart Disease, Family Hypertension, Family Psychiatric Problems, Family Stroke - Social History Smoking Status: Never smoker Frequency of Alcohol Use: None Type of Drug Use: None Exam Vital Signs: Vital Signs Temperature 99.3 F 08/27/16 19:14 Pulse Rate 80 08/27/16 19:14 Respiratory Rate 14 08/27/16 19:14 Blood Pressure 109/77 08/27/16 19:14 O2 Sat by Pulse Oximetry 97 08/27/16 19:14 - General General appearance: alert, in no apparent distress - Head Head exam: Present: atraumatic, normocephalic, normal inspection - Eye Eye exam: Present: normal appearance, PERRL, EOMI - ENT ENT exam: Present: normal exam, normal oropharynx - Neck Neck exam: Present: normal inspection, full ROM, trachea midline - Chest Chest inspection: Present: normal inspection, symmetric chest wall rise - Respiratory Respiratory exam: Present: normal lung sounds bilaterally. Absent: rales, rhonchi, wheezes - Cardiovascular Cardiovascular exam: Present: regular rate, normal rhythm, normal heart sounds. Absent: murmur, rubs, gallop - Abdominal Exam Abdominal exam: Present: soft, normal bowel sounds. Absent: distention, tenderness - Extremities Exam Extremities exam: Present: normal inspection - Back Exam Back exam: Present: normal inspection - Neurological Exam Neurological exam: Present: alert, oriented X3, CN II-XII intact. Absent: motor sensory deficit - Psychiatric Psychiatric exam: Present: normal affect - Skin Skin exam: Present: warm, dry Course Course Narrative: Medical decision making: Patient appears comfortable no acute distress does not appear to be in any pain however H&H is low so discussed with hospitalist will evaluate this patient for possible admission. Results - Labs CBC & BMP: 08/27/16 19:45 08/27/16 19:45 Lab Results: I have reviewed the patients labs Labs: Laboratory Tests 08/27/16 08/27/16 19:45 19:45 WBC 15.4 H RBC 1.94 L Hgb 6.2 L* Hct 18.0 L MCV 92.8 MCH 32 MCHC 34.4 RDW 18.4 H Plt Count 490 H MPV 10.0 Neut % (Auto) 45.3 Lymph % (Auto) 39.1 [place] % (Auto) 12.1 Eos % (Auto) 2.7 Baso % (Auto) 0.5 Neut # (Auto) 7.0 Lymph # (Auto) 6.0 H [place] # (Auto) 1.9 H Eos # (Auto) 0.4 Baso # (Auto) 0.1 Immature Gran % 0.3 Nucleated RBC % 1.0 Immature Gran # 0.05 Nucleated RBCs # 0.15 Absolute Retic 0.2 Percent Retic 12.9 H Retic Hgb Equivalent 31.8 Disposition Clinical Impression: Sickle cell anemia with pain, Sickle cell anemia Case discussed with: patient Disposition: Disch/Xfer-[facility] Term [facility] Condition: Stable Time of Disposition: 20:51
[2016-08-27] MEDS ORDERED: PROMETHAZINE 25 MG/1 ML VIAL IM STA (20:53)
[2016-08-27] MEDS ORDERED: HYDROmorphone 2 MG/1 ML VIAL IV STA (20:54)
[2016-08-27] MEDS ORDERED: PROMETHAZINE 25 MG/1 ML VIAL ONE (20:57)
[2016-08-27] MEDS ORDERED: HYDROmorphone 2 MG/1 ML VIAL ONE (20:58)
--- NOTE | 2016-08-27 21:04 | Hospitalist History & Physical ---
Assessment and Plan (1) Acute sickle cell crisis Status: Resolved Assessment and plan: hydration, dilaudid, consult dr Saravia Current Visit: No (2) Anemia of chronic disease Status: Chronic Assessment and plan: type and cross but dont transfuse, cbc in am Current Visit: No History of Present Illness Chief complaint: pain History of present illness: Ms. Hess is a 21 year old female with history of sickle cell crisis presents with complaints of pain in her lower extremities chest and back. Patient was just admitted the other week and then wanted to leave early to go on vacation. Patient is taking her pain medicine some of the time at home. Her mother says she is not taking it very much but she seems to run out of it quickly. Her mother is getting call Dr. Taiwo Mccray and see if he will take her on as the patient. I will ask pain management to see her and see if they are willing to accept her as a patient. I do believe some of this is addiction but she does have true sickle cell crisis. Last time we transfuse blood she had a severe allergic reaction due to the many antibiotics she already has never bleed due to reoccurring infections. Home Medications Medication Instructions Recorded Confirmed Type Folic Acid Tab 1 mg PO DAILY tablet 11/17/15 08/27/16 Rx Docusate/Senna 50-8.6 [Senokot S] 2 tablet PO DAILY PRN #7 tablet 07/01/1608/27 Rx Ergocalciferol [Drisdol] 50,000 unit PO WE 08/12/16 08/27/16 History Hydroxyurea [Hydrea] 500 mg PO BID capsule 08/14/16 08/27/16 Rx Oxycodone HCl/Acetaminophen 1 each PO Q6H PRN #30 tablet 08/14/16 08/27/16 Rx [Percocet 10-325 mg Tablet] Allergies Allergy/AdvReac Type Severity Reaction Status Date / Time diphenhydramine Allergy ITCHING Verified 05/07/16 15:57 [From Benadryl] morphine Allergy SHORTNESS Verified 05/07/16 15:57 OF BREATH ondansetron Allergy HIVES Verified 05/07/16 15:57 [From Zofran (as hydrochloride)] Medical,Surgical,& Family Hx - Medical History Psychological: History of: Anxiety Disorders, Depression No history of: ADHD, Behavior Problems, Bipolar Disorder, Previous Suicide Attempt, Psychiatric/Substance Abuse Tx, Schizophrenia, Violent Behavior, Psychiatric Problems HEENT: History of: Ear Problem (Ear infection left ear) Endocrine: History of: Endocrine Problems (amenorrhea) Rheumatology: History of;: Psoriasis (itching) No history of;: Fibromyalgia, Gout, Myasthenia Gravis, Rheumatoid Arthritis, Rheumatological Problems Respiratory: History of: Bronchitis No history of: Asthma, COPD, Intubation, Obstructive Sleep Apnea, Pulmonary Embolism, Pulmonary Hypertension, Pneumonia, Lung Cancer, Respiratory Problems ( history of remote acute lung syndrome) Gastrointestinal: History of: GI Problems (HX OF SEVERE CONSTIPATION, OBSTIPATION NOW. DUE TO HYDROCODONE.) No history of: Bowel Obstruction, Clostridium Difficile, Crohn's Disease, Diverticulitis/ Diverticulosis, Esophageal Varices, GERD, Gastrointestinal Bleed , Hemorrhoids, Hematochezia, Hepatitis, Liver Problems, Pancreatitis, Polyps, Ulcerative Colitis, Gastrointestinal Cancer Musculoskeletal: History of: Musculoskeletal Problems (SEVERE PAIN IN SKELETAL PART OF HIPS, LEGS, BACK, CHEST.) No history of: Amputation, Back/Neck Problems, Degenerative Disk Disease, Herniated Disk, Osteoporosis, Musculoskeletal Cancer Hematology: History of: Anemia, Sickle Cell Disease No history of: Blood Transfusion Reaction, Bleeding Problems, Clotting Problems, Hematologic Cancer, Blood Disorders Reproductive: History of: Reproductive Problems - Surgical History Thoracic Surgeries: Patient denies;: Organ Transplant, Lobectomy Neurologic Surgeries: Patient denies: Neurologic Surgery HEENT Surgeries: Patient denies: Eye Surgery, Thyroid Surgery, Tonsilectomy & Adenoidectomy Abdominal Surgeries: Surgical HX of: Abdominal Surgery, Cholecystectomy (jan 04, 2006) Patient denies: Appendectomy, Colonoscopy, Gastric Bypass Surgery, EGD, Hernia Repair Reproductive Surgeries: Patient denies;: Breast Surgery, Section, Dilation and Curettage, Gynecologic Surgery, Hysterectomy, Tubal Ligation Orthopedic Surgeries: Patient denies;: Implanted Devices, Orthopedic Surgery, Spinal Surgery, Total Hip Replacement, Total Knee Replacement - Family History Family History: Reports;: Family Cancer (maternal grandmother lung) Denies;: Family Anesthesia Reaction, Family Diabetes, Family Heart Disease, Family Hypertension, Family Psychiatric Problems, Family Stroke - Social History Smoking Status: Never smoker Frequency of Alcohol Use: None Type of Drug Use: None Marital Status: Single Lives With:: Parent Functional capacity: independent ambulation - Constitutional Constitutional: Absent: chills, fatigue, fever(s) - EENT Eyes: Absent: blurry vision, diplopia Ears: Absent: decreased hearing, ear discharge Nose, mouth and throat: Absent: headache(s), sore throat - Cardiovascular Cardiovascular: Present: chest pain at rest, dyspnea - Respiratory Respiratory: Present: dyspnea. Absent: cough - Gastrointestinal Gastrointestinal: Absent: abdominal pain, heartburn, nausea, vomiting - Genitourinary Genitourinary: Absent: difficulty urinating, dysuria - Musculoskeletal Musculoskeletal: Present: back pain - Neurological Neurological: Absent: headache(s), syncope - Psychiatric Psychiatric: Present: depression. Absent: anxiety - Endocrine Endocrine: Absent: fatigue, heat intolerance - Hematologic/Lymphatic Hematologic/Lymphatic: Absent: easy bleeding, easy bruising Exam - Constitutional Vitals: Period Temp Pulse Resp BP Sys/Ventura Pulse Ox Last 24 Hr 99.3 F-99.3 F 80-80 14-14 109-109/77-77 97 General appearance: normal weight, no acute distress - Head Head exam: Present: normal inspection, normocephalic - Eye Eye exam: Present: EOMI. Absent: scleral icterus Pupils: Present: TREY, normal accommodation - ENT ENT exam: Present: normal exam, normal external ear exam - Neck Neck exam: Absent: lymphadenopathy, thyromegaly - Respiratory Respiratory exam: Present: clear to auscultation bilaterally - Cardiovascular Cardiovascular exam: Present: regular rate and rhythm. Absent: systolic murmur - GI/Abdominal GI/Abdominal exam: Present: normal bowel sounds, soft. Absent: tenderness - Extremities Exam Extremities exam: Present: normal inspection, normal capillary refill - Neurological Exam Neurological exam: Present: alert, oriented X3, CN II-XII intact, reflexes normal. Absent: motor sensory deficit - Psychiatric Psychiatric exam: Present: normal affect, normal mood - Skin Skin exam: Present: normal color, warm Results - Labs CBC & BMP: 08/27/16 19:45 08/27/16 19:45 Lab Results: I have reviewed the past 24 hour labs
[2016-08-27] MEDS ORDERED: ACETAMINOPHEN 325 MG TABLET PO PRN (22:54)
[2016-08-27] MEDS ORDERED: PROMETHAZINE 25 MG/1 ML VIAL IM PRN (22:54)
[2016-08-27] MEDS ORDERED: DOCUSATE/SENNA 50-8.6 MG TABLET PO PRN (22:54)
[2016-08-27] MEDS: HYDROXYUREA 500 MG CAPSULE PO SCH (23:10)
[2016-08-27] MEDS: SODIUM CHLORIDE 0.45% 1,000 ML IV SCH (23:12)
[2016-08-27] MEDS: oxyCODONE/ACETAMINOPHEN 5-325 MG TABLET PO PRN (23:17)
[2016-08-28] MEDS: HYDROmorphone 2 MG/1 ML VIAL IV PRN ×6 (01:36→20:53)
[2016-08-28 05:28] LABS: Apearance,Urine Slightly Hazy (Clear); Bacteria,Urine Occasional /HPF (Few); Bilirubin,Urine Negative (Negative); Blood, Urine Negative (Negative); Glucose,Urine (UA) Negative (Negative); Ketones,Urine Negative (Negative); Mucus,Urine Occasional /LPF (Occasional); Nitrite,Urine Negative (Negative); Protein,Urine Negative; RBC,Urine 1 /HPF (0-4); Squamous Epithelial Cell,Urine Occasional /HPF (0-10); Urine Color Yellow (Yellow); WBC,Urine 3 /HPF (0-6)
--- NOTE | 2016-08-28 07:06 | XRay Report ---
XR chest 1V portable Indication: Shortness of breath. Chest one view: Comparison 08/12/2016. Heart size remains upper limits of normal with continued vascular prominence of the lungs. Findings suggest sickle cell disease or crisis. No focal infiltrate is shown. Lung volumes are low. Scoliosis of the thoracolumbar spine is stable. Impression: Mild cardiomegaly and pulmonary vascular prominence, consistent with sickle cell crisis. PROCEDURE INTERPRETED AT [facility] DEPARTMENT OF RADIOLOGY Final Report Signed by: Emanuel Gamboa M.D.
[2016-08-28] MEDS: SODIUM CHLORIDE 0.45% 1,000 ML IV SCH ×2 (07:19→17:07)
[2016-08-28 07:53] LABS: Basophils # 0.1 10*3/uL (0.0-0.2); Basophils % 0.4 % (0.0-0.8); Eosinophils # 0.7 10*3/uL (0.0-0.87); Eosinophils % 3.7 % (0.00-10.9); Hematocrit 18.8 VOL% (35.7-47.0); Immature Granulocytes % 0.5 %; Lymphocytes # 8.2 10*3/uL (1.4-4.0); Lymphocytes % 43.3 % (21.3-54.2); Mean Corpuscular HGB Conc 33.5 GM/DL (32-36); Mean Corpuscular Hemoglobin 32 PG (27-34); Mean Corpuscular Volume 94.5 FL (87-102); Monocytes # 2.2 10*3/uL (0.11-0.8); Monocytes % 11.5 % (1.7-12.7); NRBC # 0.14 10*3/uL; Neutrophils # 7.7 10*3/uL (1.4-7.4); Neutrophils % 40.6 % (38.7-73.9); Platelet Count 468 T/CUMM (130-400); Red Blood Count 1.99 MC/CUMM (3.8-5.5); Red Cell Distribution Width 18.3 % (9.3-17.3)
[2016-08-28 08:01] LABS: Hemoglobin 6.3 GM/DL (12.0-16.0)
[2016-08-28 08:28] LABS: Eosinophils 3 % (0-10); Hypochromasia 1+; Lymphocytes 51 % (20-55); Macrocytosis 1+; Segmented Neutrophils 44 % (50-85); Total Cells Counted 100
[2016-08-28 08:29] LABS: Polychromasia Slight; Sickle Cells Few
[2016-08-28 08:30] LABS: Howell-Jolly Bodies Few; Target Cells Few
[2016-08-28 08:31] LABS: Pappenheimer Bodies Few; Platelet Estimate Adequate
[2016-08-28] MEDS: HYDROXYUREA 500 MG CAPSULE PO SCH ×2 (09:22→20:53)
[2016-08-28] MEDS: oxyCODONE/ACETAMINOPHEN 5-325 MG TABLET PO PRN (09:22)
[2016-08-28] MEDS: FOLIC ACID 1 MG TABLET PO SCH (09:22)
--- NOTE | 2016-08-28 10:38 | Pain Management Consult Note ---
Assessment and Plan (1) Sickle cell anemia with pain Status: Chronic Assessment and plan: We spent a great deal of time discussing her use of opioids and her admission prevention plan. She is not hydrating when crisis comes on and is instructed to drink enough water to micturate clear and not yellow. She may take Percocet 10 qid on crisis days. She has pain most of the time at lower levels but can go 2 days without percocet and denies withdrawal or craving. On school days she only takes a single 5 mg. She is embarrassed and depresssed and school colleagues do not know she has the percocet, discussed with her and mother the risk of divergence with predators in the community, they understand. There are no obvious warnings for addiction or even physical dependence. We agree to be sole provider of meds in the future as [facility] shows multiple prescribers although many are hospital based. [facility] will be consulted outpatient and with mother as well. PT may be able to help with modalities for thoracic spine pain. LBP and leg pain are not currently problematic but do occur in her crisies. Current Visit: No History of Present Illness Chief complaint: thoracic pain sickle crisis History of present illness: Ms. Hess is a 21 year old female with chronic severe relapsing SSA crises. She has had frequent admissions for fluid and pain control, occasional transfusions. She is followed by Dr. Ahmadi hematology in [place] about every three months. Home Medications Medication Instructions Recorded Confirmed Type Folic Acid Tab 1 mg PO DAILY tablet 11/17/15 08/27/16 Rx Docusate/Senna 50-8.6 [Senokot S] 2 tablet PO DAILY PRN #7 tablet 07/01/1608/27 Rx Ergocalciferol [Drisdol] 50,000 unit PO WE 08/12/16 08/27/16 History Hydroxyurea [Hydrea] 500 mg PO BID capsule 08/14/16 08/27/16 Rx Oxycodone HCl/Acetaminophen 1 each PO Q6H PRN #30 tablet 08/14/16 08/27/16 Rx [Percocet 10-325 mg Tablet] Allergies Allergy/AdvReac Type Severity Reaction Status Date / Time diphenhydramine Allergy ITCHING Verified 05/07/16 15:57 [From Benadryl] morphine Allergy SHORTNESS Verified 05/07/16 15:57 OF BREATH ondansetron Allergy HIVES Verified 05/07/16 15:57 [From Zofran (as hydrochloride)] Medical,Surgical,& Family Hx - Medical History Psychological: History of: Anxiety Disorders, Depression No history of: ADHD, Behavior Problems, Bipolar Disorder, Previous Suicide Attempt, Psychiatric/Substance Abuse Tx, Schizophrenia, Violent Behavior, Psychiatric Problems HEENT: History of: Ear Problem (Ear infection left ear) Endocrine: History of: Endocrine Problems (amenorrhea) Rheumatology: History of;: Psoriasis (itching) No history of;: Fibromyalgia, Gout, Myasthenia Gravis, Rheumatoid Arthritis, Rheumatological Problems Respiratory: History of: Bronchitis No history of: Asthma, COPD, Intubation, Obstructive Sleep Apnea, Pulmonary Embolism, Pulmonary Hypertension, Pneumonia, Lung Cancer, Respiratory Problems ( history of remote acute lung syndrome) Gastrointestinal: History of: GI Problems (HX OF SEVERE CONSTIPATION, OBSTIPATION NOW. DUE TO HYDROCODONE.) No history of: Bowel Obstruction, Clostridium Difficile, Crohn's Disease, Diverticulitis/ Diverticulosis, Esophageal Varices, GERD, Gastrointestinal Bleed , Hemorrhoids, Hematochezia, Hepatitis, Liver Problems, Pancreatitis, Polyps, Ulcerative Colitis, Gastrointestinal Cancer Musculoskeletal: History of: Musculoskeletal Problems (SEVERE PAIN IN SKELETAL PART OF HIPS, LEGS, BACK, CHEST.) No history of: Amputation, Back/Neck Problems, Degenerative Disk Disease, Herniated Disk, Osteoporosis, Musculoskeletal Cancer Hematology: History of: Anemia, Sickle Cell Disease No history of: Blood Transfusion Reaction, Bleeding Problems, Clotting Problems, Hematologic Cancer, Blood Disorders Reproductive: History of: Reproductive Problems - Surgical History Thoracic Surgeries: Patient denies;: Organ Transplant, Lobectomy Neurologic Surgeries: Patient denies: Neurologic Surgery HEENT Surgeries: Patient denies: Eye Surgery, Thyroid Surgery, Tonsilectomy & Adenoidectomy Abdominal Surgeries: Surgical HX of: Abdominal Surgery, Cholecystectomy (jan 04, 2006) Patient denies: Appendectomy, Colonoscopy, Gastric Bypass Surgery, EGD, Hernia Repair Reproductive Surgeries: Patient denies;: Breast Surgery, Section, Dilation and Curettage, Gynecologic Surgery, Hysterectomy, Tubal Ligation Orthopedic Surgeries: Patient denies;: Implanted Devices, Orthopedic Surgery, Spinal Surgery, Total Hip Replacement, Total Knee Replacement - Family History Family History: Reports;: Family Cancer (maternal grandmother lung) Denies;: Family Anesthesia Reaction, Family Diabetes, Family Heart Disease, Family Hypertension, Family Psychiatric Problems, Family Stroke - Social History Smoking Status: Never smoker Frequency of Alcohol Use: None Type of Drug Use: None Exam - Constitutional Vitals: Period Temp Pulse Resp BP Sys/Ventura Pulse Ox Last 24 Hr 97.0 F-98.5 F 83-90 16-20 99-120/41-85 97-99 Results - Labs CBC & BMP: 08/28/16 07:40 08/27/16 19:45
--- NOTE | 2016-08-28 14:53 | Hospitalist Progress Note ---
Assessment and Plan (1) Acute sickle cell crisis Status: Resolved Assessment and plan: Continue hydration, oxygen, and dilaudid, Dr. Saravia has seen her and agrees to assume care for management of crisis pain Current Visit: No (2) Anemia of chronic disease Status: Chronic Assessment and plan: dilutional, no blood needed at this point Current Visit: No Hospitalist: Subjective Interval history: Patient still in pain crisis. We are type and crossing for unit of blood in case we need it. Dr. Saravia and I spoke this morning about her and he is willing to take over her care of sickle cell crisis in order to manage her pain better as an outpatient. Still feel she is in crisis and requires further IV Dilaudid. She will continue need hydration and oxygen. Exam - Constitutional Vitals: Period Temp Pulse Resp BP Sys/Ventura Pulse Ox Last 24 Hr 97.0 F-98.7 F 75-90 16-20 96-120/41-85 97-99 Exam: Heart Rate-[RRR] Lungs-[CTAB] GI-[+bs soft, NT] Ext-[no edema] Neuro [Motor 5/5], [alert and oriented times 3] psych [normal mood and affect] General [no acute distress] Results - Labs CBC & BMP: 08/28/16 07:40 08/27/16 19:45 Lab Results: I have reviewed the past 24 hour labs
[2016-08-29] MEDS: HYDROmorphone 2 MG/1 ML VIAL IV PRN ×5 (00:45→22:47)
[2016-08-29] MEDS: SODIUM CHLORIDE 0.45% 1,000 ML IV SCH ×2 (05:29→18:44)
[2016-08-29 06:02] LABS: Basophils # 0.1 10*3/uL (0.0-0.2); Basophils % 0.5 % (0.0-0.8); Eosinophils # 0.7 10*3/uL (0.0-0.87); Immature Granulocytes % 0.5 %; Immature Granulocytes Absolute 0.08 #; Lymphocytes # 6.9 10*3/uL (1.4-4.0); Lymphocytes % 39.2 % (21.3-54.2); Mean Corpuscular HGB Conc 35.2 GM/DL (32-36); Mean Corpuscular Hemoglobin 32 PG (27-34); Mean Corpuscular Volume 90.7 FL (87-102); Mean Platelet Volume 10.1 FL (9.6-12.0); Monocytes % 11.1 % (1.7-12.7); NRBC # 0.13 10*3/uL; Neutrophils # 7.9 10*3/uL (1.4-7.4); Neutrophils % 44.7 % (38.7-73.9); Platelet Count 485 T/CUMM (130-400); Red Blood Count 1.94 MC/CUMM (3.8-5.5); Red Cell Distribution Width 18.5 % (9.3-17.3); White Blood Count 17.6 T/CUMM (4-12)
[2016-08-29 06:15] LABS: Hematocrit 17.6 VOL% (35.7-47.0); Hemoglobin 6.2 GM/DL (12.0-16.0)
[2016-08-29 07:25] LABS: Eosinophils 2 % (0-10); Lymphocytes 47 % (20-55); Nucleated Red Blood Cells 2 (0-5); Platelet Estimate Adequate; Segmented Neutrophils 43 % (50-85); Total Cells Counted 100
[2016-08-29 07:26] LABS: Elliptocytes Few; Howell-Jolly Bodies Few; Hypochromasia 1+; Macrocytosis Slight; Polychromasia Slight; Sickle Cells Few; Target Cells Few
[2016-08-29] MEDS: HYDROXYUREA 500 MG CAPSULE PO SCH ×2 (08:54→21:55)
[2016-08-29] MEDS: FOLIC ACID 1 MG TABLET PO SCH (08:55)
--- NOTE | 2016-08-29 08:59 | Event Note ---
We have arranged psychological evaluation this Saturday (so hopefully she can be discharged by ) to go over her stressors and cues for medication usage, might be some compulsion to use percocet on less painful days. She will see us in clinic next Saturday.
--- NOTE | 2016-08-29 11:57 | Hospitalist Progress Note ---
Assessment and Plan (1) Acute sickle cell crisis Status: Resolved Assessment and plan: Continue hydration, oxygen, and dilaudid, Dr. Saravia has seen her yesterday and will follow her in the clinic Current Visit: No (2) Anemia of chronic disease Status: Chronic Assessment and plan: dilutional, one unit of blood available Current Visit: No Hospitalist: Subjective Interval history: Patient improving with hydration and IV Dilaudid. We will guaiac her stools. She did ask for something for constipation. Exam - Constitutional Vitals: Period Temp Pulse Resp BP Sys/Ventura Pulse Ox Last 24 Hr 97.5 F-98.6 F 70-90 16-24 96-111/53-70 98-100 Exam: Heart Rate-[RRR] Lungs-[CTAB] GI-[+bs soft, NT] Ext-[no edema] Neuro [Motor 5/5], [alert and oriented times 3] psych [normal mood and affect] General [no acute distress] Results - Labs CBC & BMP: 08/29/16 05:41 08/27/16 19:45 Lab Results: I have reviewed the past 24 hour labs
--- NOTE | 2016-08-29 12:20 | Pain Management Progress Note ---
Assessment and Plan (1) Sickle cell anemia with pain Status: Chronic Assessment and plan: I would prefer the nursing staff offer her po pain meds before proceeding with IV. Toradol po was also scheduled but no dose as of yet. None the less she is looking cheerful at noon and in good spirits. I will sign off and hopefully she will see the psychologist outpatient Saturday and we will see her in clinic next week. PT still has not been by. Current Visit: No Pain - Subjective Interval history: She is sitting up bottle feeding her friends baby, no pain, smiling and happy. Has not received any po percocet today, only a single IV dilaudid dose at 9am. I was hoping we could transition from IV pain meds. She also has po Dilaudid avaialble. Toradol was ordered but she didnt get it. For some reason, PT has still not been by. Exam - Constitutional Vitals: Period Temp Pulse Resp BP Sys/Ventura Pulse Ox Last 24 Hr 97.5 F-98.6 F 70-90 16-24 96-111/53-70 98-100 Results - Labs CBC & BMP: 08/29/16 05:41 08/27/16 19:45
[2016-08-29] MEDS: KETOROLAC 10 MG TABLET PO SCH ×2 (12:35→18:44)
[2016-08-29] MEDS: HYDROmorphone 2 MG TABLET PO PRN ×2 (12:36→20:35)
[2016-08-29] MEDS: BISACODYL 5 MG TABLET PO SCH (12:36)
[2016-08-30] MEDS: KETOROLAC 10 MG TABLET PO SCH ×3 (00:38→11:42)
[2016-08-30] MEDS: HYDROmorphone 2 MG/1 ML VIAL IV PRN ×2 (04:23→11:42)
[2016-08-30 07:35] LABS: Basophils # 0.1 10*3/uL (0.0-0.2); Basophils % 0.6 % (0.0-0.8); Eosinophils # 0.8 10*3/uL (0.0-0.87); Eosinophils % 4.7 % (0.00-10.9); Immature Granulocytes % 0.6 %; Immature Granulocytes Absolute 0.09 #; Lymphocytes # 6.7 10*3/uL (1.4-4.0); Lymphocytes % 41.4 % (21.3-54.2); Mean Corpuscular HGB Conc 34.5 GM/DL (32-36); Mean Corpuscular Hemoglobin 31 PG (27-34); Mean Corpuscular Volume 90.8 FL (87-102); Mean Platelet Volume 10.3 FL (9.6-12.0); Monocytes # 1.7 10*3/uL (0.11-0.8); Monocytes % 10.6 % (1.7-12.7); NRBC # 0.17 10*3/uL; Neutrophils # 6.8 10*3/uL (1.4-7.4); Neutrophils % 42.1 % (38.7-73.9); Platelet Count 470 T/CUMM (130-400); Red Blood Count 1.85 MC/CUMM (3.8-5.5); Red Cell Distribution Width 18.5 % (9.3-17.3); White Blood Count 16.1 T/CUMM (4-12)
[2016-08-30 07:45] LABS: Hemoglobin 5.8 GM/DL (12.0-16.0)
[2016-08-30 07:46] LABS: Hematocrit 16.8 VOL% (35.7-47.0)
[2016-08-30 08:06] LABS: Elliptocytes Few; Eosinophils 5 % (0-10); Howell-Jolly Bodies Few; Hypochromasia 1+; Lymphocytes 39 % (20-55); Macrocytosis Slight; Nucleated Red Blood Cells 3 (0-5); Pappenheimer Bodies Few; Platelet Estimate Adequate; Polychromasia Slight; Segmented Neutrophils 49 % (50-85); Sickle Cells Few; Total Cells Counted 100
--- NOTE | 2016-08-30 08:09 | Discharge Summary ---
Hospital Course - Hospital Course Hospital Course: 30-year-old -Uz[place] female with a history of sickle cell crisis presents with bilateral lower extremity pain chest pain and back pain. She is well known to me. She has required admission about every other week. Patient sees a sickle cell down in [place] but he has not been able to control her crises to keep her out of the emergency room. I told her mother she must find somebody here as sickle cell crisis does not need to be admitted to the hospital every other week. I contacted Dr. Saravia at mother's request and he is agreed to assume care for her pain crises. He is scheduled her to see a psychologist this Saturday and to see him the following week. She has received Dilaudid and IV fluids. Her hemoglobin has stabilized at 5.8. Patient had an allergic reaction of blood during her last admission. Patient only will be discharged home today on Percocet and Toradol. - Time spent with patient Time with patient DS: Less than 30 minutes (25 min) Diagnosis - Discharge Diagnosis (1) Acute sickle cell crisis Status: Resolved (2) Anemia of chronic disease Status: Chronic Discharge Plan - Discharge Data Disposition: Disch To Home/Self Care Condition at Discharge: Stable Discharge Diet: regular diet Activity: resume usual activities as tolerated Hygiene: no restrictions Weight Bearing at Discharge: full weight bearing - Discharge Medications New Ketorolac Tab [Toradol Tab] 10 mg PO Q6HR #30 tablet Continue Folic Acid Tab 1 mg PO DAILY tablet Ergocalciferol [Drisdol] 50,000 unit PO WE Hydroxyurea [Hydrea] 500 mg PO BID capsule Docusate/Senna 50-8.6 [Senokot S] 2 tablet PO DAILY PRN #7 tablet PRN Reason: Constipation Changed Oxycodone HCl/Acetaminophen [Percocet 10-325 mg Tablet] 2 each PO Q6H PRN # 30 tablet PRN Reason: severe pain - Follow Up or Referral Follow Up: Mihai Saravia MD [Physician] - - Forms/Instructions Additional Discharge Instructions: Psychologist as scheduled by Dr. Saravia this saturday Exam - Constitutional Vitals: Period Temp Pulse Resp BP Sys/Ventura Pulse Ox Last 24 Hr 98.0 F-98.9 F 79-90 17-20 108-139/60-83 96-98 General appearance: normal weight, no acute distress - Respiratory Respiratory exam: Present: clear to auscultation bilaterally. Absent: rhonchi, wheezes - Cardiovascular Cardiovascular exam: Present: regular rate and rhythm. Absent: systolic murmur - GI/Abdominal GI/Abdominal exam: Present: normal bowel sounds, soft. Absent: tenderness Discharge Results Procedures and tests throughout hospitalization: Pending Orders 08/27/16 20:52 Antibody Identification Stat Red Blood Cells Leuko Red Stat Type and Screen Stat 08/29/16 10:28 Occult Blood, Stool Stat 08/30/16 06:43 Comp Blood Count Auto Diff IN AM Labs on day of discharge: Labs from last 24 hours 08/30/16 06:43 WBC 16.1 H RBC 1.85 L Hgb 5.8 L* Hct 16.8 L* MCV 90.8 MCH 31 MCHC 34.5 RDW 18.5 H Plt Count 470 H MPV 10.3 Neut % (Auto) 42.1 Lymph % (Auto) 41.4 [facility] % (Auto) 10.6 Eos % (Auto) 4.7 Baso % (Auto) 0.6 Neut # (Auto) 6.8 Lymph # (Auto) 6.[address] [facility] # (Auto) 1.7 H Eos # (Auto) 0.8 Baso # (Auto) 0.1 Total Counted Pending Immature Gran % 0.6 Nucleated RBC % 1.1 Immature Gran # 0.09 Nucleated RBCs # 0.17 DS: Provider Date of admission: 08/27/16 20:54 Primary care physician: . No PCP Attending physician on admission: Ana Santamaria MD Consults: 08/27/16 22:54 Consult to Physician [CONS] Routine Comment: sickle cell crisis Consulting Provider: Mihai Saravia When should Consulting Provider be notified: In am 08/28/16 02:56 Consult to Pastoral Services [CONS] Routine Comment: Pastoral Screen: Request Activity Assistant Visit Pastoral Screen Source of Request: Patient Family 08/28/16 10:44 Consult to Physical Therapy [CONS] Routine Reason for Physical Therapy: Other Consult Comment: thoracic sickle pain, modalities and heat Discharging clinician: Ana Santamaria MD
[2016-08-30] MEDS: BISACODYL 5 MG TABLET PO SCH (08:52)
[2016-08-30] MEDS: FOLIC ACID 1 MG TABLET PO SCH (08:52)
[2016-08-30] MEDS: HYDROXYUREA 500 MG CAPSULE PO SCH (08:53)
[2016-08-30] MEDS: HYDROmorphone 2 MG TABLET PO PRN (08:58)
[2016-08-30] MEDS ORDERED: hydrOXYzine HCL 25 MG TABLET PO ONE (11:00)
[2016-08-30] MEDS ORDERED: methylPREDNISolone SOD SUC 40 MG/1 ML VIAL IV ONE (11:00)
[2016-08-30] MEDS ORDERED: ACETAMINOPHEN 325 MG TABLET PO ONE (11:00)
[2016-08-30 16:49] VITALS: BP 111/67
[2016-08-30] MEDS: SODIUM CHLORIDE 0.45% 1,000 ML IV SCH (17:07)
[2016-08-30 17:23] LABS: Hematocrit 25.5 VOL% (35.7-47.0); Hemoglobin 8.4 GM/DL (12.0-16.0)
== END 2016-08-30 17:38 | disposition home or self-care (01) | DRG 812 ==
LOC: N.ED 19:03 → N.EDINP 20:54 → N.2E 22:23
PROVIDERS: ADMIT Internal Medicine; ATTEND Internal Medicine

== ENCOUNTER 2016-11-04 10:35 | Inpatient (IN) ==
[2016-11-04] MEDS ORDERED: SODIUM CHLORIDE 0.9% 1,000 ML IV STA (11:27)
[2016-11-04] MEDS ORDERED: HYDROmorphone 2 MG/1 ML VIAL IV STA ×2 (11:27→12:52)
[2016-11-04 11:34] LABS: Basophils % 0.2 % (0.0-0.8); Eosinophils # 0.1 10*3/uL (0.0-0.87); Eosinophils % 0.9 % (0.00-10.9); Hemoglobin 6.7 GM/DL (12.0-16.0); Immature Granulocytes % 0.4 %; Immature Granulocytes Absolute 0.04 #; Lymphocytes # 3.3 10*3/uL (1.4-4.0); Mean Corpuscular HGB Conc 37.4 GM/DL (32-36); Mean Corpuscular Hemoglobin 44 PG (27-34); Mean Corpuscular Volume 118.5 FL (87-102); Mean Platelet Volume 10.2 FL (9.6-12.0); Monocytes # 0.6 10*3/uL (0.11-0.8); NRBC # 0.08 10*3/uL; Neutrophils # 7.3 10*3/uL (1.4-7.4); Neutrophils % 64.5 % (38.7-73.9); Platelet Count 313 T/CUMM (130-400); Red Blood Count 1.51 MC/CUMM (3.8-5.5); Red Cell Distribution Width 15.4 % (9.3-17.3); White Blood Count 11.3 T/CUMM (4-12)
[2016-11-04 11:37] LABS: Hematocrit 17.9 VOL% (35.7-47.0)
[2016-11-04] MEDS ORDERED: HYDROmorphone 2 MG/1 ML VIAL ONE ×2 (11:46→12:57)
[2016-11-04 11:53] LABS: Elliptocytes Few; Howell-Jolly Bodies Slight; Hypochromasia 1+; Platelet Estimate Adequate; Polychromasia Slight; Target Cells Few
[2016-11-04 11:54] LABS: Macrocytosis Slight; Sickle Cells Slight
[2016-11-04 11:56] LABS: Albumin 3.6 G/DL (3.4-5.0); Bilirubin,Total 4.2 MG/DL (0.2-1.0); Calcium 8.9 MG/DL (8.5-10.1); Osmolality,Calculated 274.5 MOS/KG (273-304); Potassium 4.4 MMOL/L (3.5-5.1); Total Protein 7.6 G/DL (6.4-8.3)
[2016-11-04] MEDS ORDERED: SODIUM CHLORIDE 0.9% 250 ML IV PRN (12:51)
--- NOTE | 2016-11-04 13:10 | Emergency Department Note ---
Arvin Harrison Brittany, am scribing for, and in the presence of, Cinda Garcia MD 11:33. Radha Harrison Leanne, MD, personally performed the services described in this documentation, ascribed by Chantale Sheridan in my presence, and it is both accurate and complete 310 . Arrival - Arrival Chief Complaint: Sickle Cell Stated Complaint: sickle cell and abdominal pain ED Nursing Triage Note: C/O HAVING SICKLE CELL CRISIS THAT STARTED ON THRUSDAY, STATES HAVING LOWER BACK PAIN , + HIP PAIN, BILATERAL LEG PAIN., DENIES NAUSEA. , DENIES VOMITING., DENIES HAVING DIARRHEA., + CHILLS., Mode of Arrival: Ambulatory Limitations: No Limitations Source: Patient Time Seen by Provider: 11/04/16 11:13 - History of Present Illness HPI Narrative: This is a 21 y/o black female,who presents to the ED with c/o abd pain, back pain, BLE pain and hip pain which started 4 days ago. She states she has a known hx of Sickle Cell Disease, and her last crisis was in August of 2016/She denies any vomiting, chills, fever, or nausea. She reports her LNMP was in October but she has irregular cycles normally. Pt has no other complaints/pain in the ED at this time. Pt has a PMHx of sickle cell disease, anxiety, depression, amenorhea, and anemia. Pt has had a cholectstectomy. Pt has a family medical Hx of lung cancer. Pt denies a social Hx. Onset (ago): day(s) (Started 4 days ago) Consistency: constant Severity: moderate, similar to previous episodes Date of Last Menstrual Period: OCTOBER 12 Allergies/Adverse Reactions: Allergies Allergy/AdvReac Type Severity Reaction Status Date / Time diphenhydramine Allergy ITCHING Verified 11/04/16 10:51 [From Benadryl] morphine Allergy SHORTNESS Verified 11/04/16 10:51 OF BREATH ondansetron Allergy HIVES Verified 11/04/16 10:51 [From Zofran (as hydrochloride)] Home Medications: Home Medications Medication Instructions Recorded Confirmed Type Hydroxyurea [Hydrea] 500 mg PO BID capsule 08/14/16 11/04/16 Rx Ketorolac Tab [Toradol Tab] 10 mg PO Q6HR #30 tablet 08/30/16 11/04/16 Rx Oxycodone HCl/Acetaminophen 2 each PO Q6H PRN #30 tablet 08/30/16 11/04/16 Rx [Percocet 10-325 mg Tablet] Folic Acid Tab 1 mg PO QAM 11/04/16 11/04/16 History Review of System - Review of System 12 point system: reviewed and no additional remarkable complaints except as stated - Review of System Constitutional: Absent: chills, fever Gastrointestinal: Present: abdominal pain. Absent: nausea, vomiting Musculoskeletal: Present: back pain, leg pain (BLE pain ), other (Bilateral hip pain ) Medical,Surgical,& Family Hx - Medical History Psychological: History of: Anxiety Disorders, Depression No history of: ADHD, Behavior Problems, Bipolar Disorder, Previous Suicide Attempt, Psychiatric/Substance Abuse Tx, Schizophrenia, Violent Behavior, Psychiatric Problems HEENT: History of: Ear Problem (Ear infection left ear) Endocrine: History of: Endocrine Problems (amenorrhea) Rheumatology: History of;: Psoriasis (itching) No history of;: Fibromyalgia, Gout, Myasthenia Gravis, Rheumatoid Arthritis, Rheumatological Problems Respiratory: History of: Bronchitis No history of: Asthma, COPD, Intubation, Obstructive Sleep Apnea, Pulmonary Embolism, Pulmonary Hypertension, Pneumonia, Lung Cancer, Respiratory Problems ( history of remote acute lung syndrome) Gastrointestinal: History of: GI Problems (HX OF SEVERE CONSTIPATION, OBSTIPATION NOW. DUE TO HYDROCODONE.) No history of: Bowel Obstruction, Clostridium Difficile, Crohn's Disease, Diverticulitis/ Diverticulosis, Esophageal Varices, GERD, Gastrointestinal Bleed , Hemorrhoids, Hematochezia, Hepatitis, Liver Problems, Pancreatitis, Polyps, Ulcerative Colitis, Gastrointestinal Cancer Musculoskeletal: History of: Musculoskeletal Problems (SEVERE PAIN IN SKELETAL PART OF HIPS, LEGS, BACK, CHEST.) No history of: Amputation, Back/Neck Problems, Degenerative Disk Disease, Herniated Disk, Osteoporosis, Musculoskeletal Cancer Hematology: History of: Anemia, Sickle Cell Disease No history of: Blood Transfusion Reaction, Bleeding Problems, Clotting Problems, Hematologic Cancer, Blood Disorders Reproductive: History of: Reproductive Problems - Surgical History Thoracic Surgeries: Patient denies;: Organ Transplant, Lobectomy Neurologic Surgeries: Patient denies: Neurologic Surgery HEENT Surgeries: Patient denies: Eye Surgery, Thyroid Surgery, Tonsilectomy & Adenoidectomy Abdominal Surgeries: Surgical HX of: Abdominal Surgery, Cholecystectomy (jan 04, 2006) Patient denies: Appendectomy, Colonoscopy, Gastric Bypass Surgery, EGD, Hernia Repair Reproductive Surgeries: Patient denies;: Breast Surgery, Section, Dilation and Curettage, Gynecologic Surgery, Hysterectomy, Tubal Ligation Orthopedic Surgeries: Patient denies;: Implanted Devices, Orthopedic Surgery, Spinal Surgery, Total Hip Replacement, Total Knee Replacement - Family History Family History: Reports;: Family Cancer (maternal grandmother lung) Denies;: Family Anesthesia Reaction, Family Diabetes, Family Heart Disease, Family Hypertension, Family Psychiatric Problems, Family Stroke - Social History Smoking Status: Never smoker Frequency of Alcohol Use: None Type of Drug Use: None Exam Vital Signs: Vital Signs Temperature 100.0 F H 11/04/16 10:47 Pulse Rate 88 11/04/16 12:44 Respiratory Rate 19 11/04/16 13:01 Blood Pressure 121/78 11/04/16 12:44 O2 Sat by Pulse Oximetry 100 11/04/16 10:47 Course Course Narrative: anemic and needs blood. concern for aplastic process as reticulocyte count has dropped significantly. Mom states she doesn't normally get transfused until 5. Will admit to hospitalist. Results - Labs CBC & BMP: 11/04/16 11:22 11/04/16 11:22 Lab Results: I have reviewed the patients labs Disposition Clinical Impression: Sickle cell pain crisis, Anemia of chronic disease
--- NOTE | 2016-11-04 13:29 | Hospitalist History & Physical ---
Assessment and Plan - Time spent with patient Time spent with patient: Greater than 30 minutes (1) Sickle cell pain crisis Status: Acute Assessment and plan: Patient will be admitted for sickle cell pain crisis. She obviously has anemia related to this however her H&H is about the same as was on prior admission other than pain she is asymptomatic. She reports having a reaction to transfusion in the past so we will hold off until absolutely needed. Will provide her support with IV fluids, IV analgesics and anti-emetics, and follow- up laboratory studies in the a.m. She is seeing Dr. Mihai Saravia in the past for pain management and will reconsult him at this time. Further workup and treatment will be based on the pending database. Current Visit: Yes History of Present Illness Chief complaint: Back pain and leg pain History of present illness: Ms. Hess is a 21 year old -Dutch female with a known history of sickle cell who states that since night Saturday morning she has been having some lower abdominal discomfort and back pain and thigh pain. It is waxed and waned in intensity until this morning where was increase in severity. She came to the emergency room and was evaluated and referred to the hospitalist service for admission. She denies any fever, chills, chest pain, shortness breath, cough, sputum production, upper respiratory tract infection, nausea, vomiting, diarrhea, constipation, melena, hematochezia, hematemesis, dysuria, hematuria, urinary urgency or incontinence. Her primary care provider is in [facility], but she sees Dr. Mihai Saravia for pain treatment here in [place]. Home Medications Medication Instructions Recorded Confirmed Type Hydroxyurea [Hydrea] 500 mg PO BID capsule 08/14/16 11/04/16 Rx Ketorolac Tab [Toradol Tab] 10 mg PO Q6HR #30 tablet 08/30/16 11/04/16 Rx Oxycodone HCl/Acetaminophen 2 each PO Q6H PRN #30 tablet 08/30/16 11/04/16 Rx [Percocet 10-325 mg Tablet] Folic Acid Tab 1 mg PO QAM 11/04/16 11/04/16 History Allergies Allergy/AdvReac Type Severity Reaction Status Date / Time diphenhydramine Allergy ITCHING Verified 11/04/16 10:51 [From Benadryl] morphine Allergy SHORTNESS Verified 11/04/16 10:51 OF BREATH ondansetron Allergy HIVES Verified 11/04/16 10:51 [From Zofran (as hydrochloride)] Medical,Surgical,& Family Hx - Medical History Psychological: History of: Anxiety Disorders, Depression No history of: ADHD, Behavior Problems, Bipolar Disorder, Previous Suicide Attempt, Psychiatric/Substance Abuse Tx, Schizophrenia, Violent Behavior, Psychiatric Problems HEENT: History of: Ear Problem (Ear infection left ear) Endocrine: History of: Endocrine Problems (amenorrhea) Rheumatology: History of;: Psoriasis (itching) No history of;: Fibromyalgia, Gout, Myasthenia Gravis, Rheumatoid Arthritis, Rheumatological Problems Respiratory: History of: Bronchitis No history of: Asthma, COPD, Intubation, Obstructive Sleep Apnea, Pulmonary Embolism, Pulmonary Hypertension, Pneumonia, Lung Cancer, Respiratory Problems ( history of remote acute lung syndrome) Gastrointestinal: History of: GI Problems (HX OF SEVERE CONSTIPATION, OBSTIPATION NOW. DUE TO HYDROCODONE.) No history of: Bowel Obstruction, Clostridium Difficile, Crohn's Disease, Diverticulitis/ Diverticulosis, Esophageal Varices, GERD, Gastrointestinal Bleed , Hemorrhoids, Hematochezia, Hepatitis, Liver Problems, Pancreatitis, Polyps, Ulcerative Colitis, Gastrointestinal Cancer Musculoskeletal: History of: Musculoskeletal Problems (SEVERE PAIN IN SKELETAL PART OF HIPS, LEGS, BACK, CHEST.) No history of: Amputation, Back/Neck Problems, Degenerative Disk Disease, Herniated Disk, Osteoporosis, Musculoskeletal Cancer Hematology: History of: Anemia, Sickle Cell Disease No history of: Blood Transfusion Reaction, Bleeding Problems, Clotting Problems, Hematologic Cancer, Blood Disorders Reproductive: History of: Reproductive Problems - Surgical History Thoracic Surgeries: Patient denies;: Organ Transplant, Lobectomy Neurologic Surgeries: Patient denies: Neurologic Surgery HEENT Surgeries: Patient denies: Eye Surgery, Thyroid Surgery, Tonsilectomy & Adenoidectomy Abdominal Surgeries: Surgical HX of: Abdominal Surgery, Cholecystectomy (jan 04, 2006) Patient denies: Appendectomy, Colonoscopy, Gastric Bypass Surgery, EGD, Hernia Repair Reproductive Surgeries: Patient denies;: Breast Surgery, Section, Dilation and Curettage, Gynecologic Surgery, Hysterectomy, Tubal Ligation Orthopedic Surgeries: Patient denies;: Implanted Devices, Orthopedic Surgery, Spinal Surgery, Total Hip Replacement, Total Knee Replacement - Family History Family History: Reports;: Family Cancer (maternal grandmother lung) Denies;: Family Anesthesia Reaction, Family Diabetes, Family Heart Disease, Family Hypertension, Family Psychiatric Problems, Family Stroke - Social History Smoking Status: Never smoker Frequency of Alcohol Use: None Type of Drug Use: None Marital Status: Single Functional capacity: independent ambulation 12 point system: reviewed and no additional remarkable complaints except as stated Exam - Constitutional Vitals: Period Temp Pulse Resp BP Sys/Ventura Pulse Ox Last 24 Hr 100.0 F 88-96 16-19 119-121/75-78 100 General appearance: no acute distress - Head Head exam: Present: normocephalic, atraumatic - Eye Eye exam: Present: EOMI Pupils: Present: TREY - ENT ENT exam: Present: normal exam - Neck Neck exam: Present: normal inspection. Absent: lymphadenopathy, meningismus, tenderness, thyromegaly - Respiratory Respiratory exam: Present: clear to auscultation bilaterally. Absent: rales, rhonchi, wheezes - Cardiovascular Cardiovascular exam: Present: regular rate and rhythm. Absent: gallop, JVD, systolic murmur, tachycardia - GI/Abdominal GI/Abdominal exam: Present: normal bowel sounds, soft. Absent: mass, tenderness , rebound - Extremities Exam Extremities exam: Present: normal capillary refill. Absent: calf tenderness, edema - Back Exam Back exam: Present: normal inspection. Absent: CVA tenderness (L), CVA tenderness (R) - Neurological Exam Neurological exam: Present: alert, oriented X3, CN II-XII intact. Absent: motor sensory deficit - Psychiatric Psychiatric exam: Present: normal affect, normal mood. Absent: agitated, anxious - Skin Skin exam: Present: warm, dry. Absent: diaphoretic, erythema, rash Results - Labs CBC & BMP: 11/04/16 11:22 11/04/16 11:22 Lab Results: I have reviewed the past 24 hour labs
[2016-11-04] MEDS ORDERED: PROMETHAZINE 25 MG/1 ML VIAL IM PRN (14:11)
[2016-11-04] MEDS ORDERED: oxyCODONE IR 5 MG TABLET PO PRN (14:16)
[2016-11-04] MEDS: ENOXAPARIN 40 MG/0.4 ML SYRINGE SUBCUT SCH (14:29)
[2016-11-04] MEDS: SODIUM CHLORIDE 0.9% 1,000 ML IV SCH ×2 (14:30→20:18)
[2016-11-04] MEDS: KETOROLAC 10 MG TABLET PO SCH ×2 (17:40→23:24)
[2016-11-04] MEDS: HYDROmorphone 2 MG/1 ML VIAL IV PRN ×2 (19:28→23:30)
[2016-11-04] MEDS: HYDROXYUREA 500 MG CAPSULE PO SCH (20:19)
[2016-11-05] MEDS: SODIUM CHLORIDE 0.9% 1,000 ML IV SCH ×4 (04:07→23:40)
[2016-11-05] MEDS: HYDROmorphone 2 MG/1 ML VIAL IV PRN ×5 (04:08→21:01)
[2016-11-05 05:12] LABS: Basophils % 0.2 % (0.0-0.8); Eosinophils # 0.1 10*3/uL (0.0-0.87); Eosinophils % 1.1 % (0.00-10.9); Immature Granulocytes % 0.4 %; Immature Granulocytes Absolute 0.04 #; Lymphocytes # 5.6 10*3/uL (1.4-4.0); Lymphocytes % 54.4 % (21.3-54.2); Mean Corpuscular HGB Conc 37.3 GM/DL (32-36); Mean Corpuscular Hemoglobin 44 PG (27-34); Mean Corpuscular Volume 118.1 FL (87-102); Mean Platelet Volume 10.1 FL (9.6-12.0); Monocytes # 0.7 10*3/uL (0.11-0.8); Monocytes % 6.7 % (1.7-12.7); NRBC # 0.09 10*3/uL; Neutrophils # 3.9 10*3/uL (1.4-7.4); Neutrophils % 37.2 % (38.7-73.9); Platelet Count 254 T/CUMM (130-400); Red Blood Count 1.27 MC/CUMM (3.8-5.5); Red Cell Distribution Width 15.7 % (9.3-17.3); White Blood Count 10.3 T/CUMM (4-12)
[2016-11-05 05:22] LABS: Hemoglobin 5.6 GM/DL (12.0-16.0)
[2016-11-05 05:53] LABS: Albumin 2.8 G/DL (3.4-5.0); Bilirubin,Total 3.4 MG/DL (0.2-1.0); Calcium 8.2 MG/DL (8.5-10.1); Osmolality,Calculated 280.1 MOS/KG (273-304); Potassium 4.1 MMOL/L (3.5-5.1); Total Protein 6.2 G/DL (6.4-8.3)
[2016-11-05 05:55] LABS: Lymphocytes 57 % (20-55); Segmented Neutrophils 40 % (50-85); Total Cells Counted 100
[2016-11-05 05:58] LABS: Elliptocytes 1+; Platelet Estimate Normal; Target Cells 1+
[2016-11-05] MEDS: KETOROLAC 10 MG TABLET PO SCH ×4 (06:08→23:39)
[2016-11-05] MEDS ORDERED: SODIUM CHLORIDE 0.9% 250 ML IV PRN (08:46)
[2016-11-05] MEDS ORDERED: hydrOXYzine HCL 25 MG TABLET PO ONE (08:47)
[2016-11-05] MEDS ORDERED: methylPREDNISolone SOD SUC 40 MG/1 ML VIAL IV ONE (08:47)
[2016-11-05] MEDS: HYDROXYUREA 500 MG CAPSULE PO SCH ×2 (08:48→21:02)
[2016-11-05] MEDS: FOLIC ACID 1 MG TABLET PO SCH (08:49)
[2016-11-05] MEDS ORDERED: EPINEPHrine 1 MG/ML VIAL ONE (10:05)
[2016-11-05] MEDS ORDERED: ACETAMINOPHEN 325 MG TABLET ONE (10:05)
[2016-11-05] MEDS: ACETAMINOPHEN 500 MG TABLET PO SCH ×4 (10:08→23:42)
--- NOTE | 2016-11-05 11:18 | Pain Management Consult Note ---
Assessment and Plan (1) Sickle cell anemia with pain Status: Chronic Assessment and plan: She is comfortable and moves to restroom without pain behavior. Pain is low back pelvis and thighs as her other episodes. She has been non compliant at [facility] with multiple no shows and cancellations, and did not go to behavioral med for opioid use assesment. She rports [facility] [employer] [employer] spring and will start summer classes in December. Affect is depressed. She reports 3 days a week use of Percocet, other days using Ultram and toradol. I have no way to confirm her self report. Receiving PRBCs which should help. Current pain regimen seems adequate. Current Visit: No History of Present Illness Chief complaint: SS crisis History of present illness: Ms. Hess is a 21 year old female known to us from August inpatient and September f /u in clinic. This episode began 3 days ago without identifiable trigger or infection. Home Medications Medication Instructions Recorded Confirmed Type Hydroxyurea [Hydrea] 500 mg PO BID capsule 08/14/16 11/04/16 Rx Oxycodone HCl/Acetaminophen 2 each PO Q6H PRN #30 tablet 08/30/16 11/04/16 Rx [Percocet 10-325 mg Tablet] Folic Acid Tab 1 mg PO QAM 11/04/16 11/04/16 History Ketorolac Tab [Toradol Tab] 10 mg PO Q6H PRN 11/04/16 11/04/16 History Allergies Allergy/AdvReac Type Severity Reaction Status Date / Time diphenhydramine Allergy ITCHING Verified 11/04/16 14:53 [From Benadryl] morphine Allergy SHORTNESS Verified 11/04/16 14:53 OF BREATH ondansetron Allergy HIVES Verified 11/04/16 14:53 [From Zofran (as hydrochloride)] Medical,Surgical,& Family Hx - Medical History Psychological: History of: Anxiety Disorders, Depression No history of: ADHD, Behavior Problems, Bipolar Disorder, Previous Suicide Attempt, Psychiatric/Substance Abuse Tx, Schizophrenia, Violent Behavior, Psychiatric Problems HEENT: History of: Ear Problem (Ear infection left ear) Endocrine: History of: Endocrine Problems (amenorrhea) Rheumatology: History of;: Psoriasis (itching) No history of;: Fibromyalgia, Gout, Myasthenia Gravis, Rheumatoid Arthritis, Rheumatological Problems Respiratory: History of: Bronchitis No history of: Asthma, COPD, Intubation, Obstructive Sleep Apnea, Pulmonary Embolism, Pulmonary Hypertension, Pneumonia, Lung Cancer, Respiratory Problems ( history of remote acute lung syndrome) Gastrointestinal: History of: GI Problems (HX OF SEVERE CONSTIPATION, OBSTIPATION NOW. DUE TO HYDROCODONE.) No history of: Bowel Obstruction, Clostridium Difficile, Crohn's Disease, Diverticulitis/ Diverticulosis, Esophageal Varices, GERD, Gastrointestinal Bleed , Hemorrhoids, Hematochezia, Hepatitis, Liver Problems, Pancreatitis, Polyps, Ulcerative Colitis, Gastrointestinal Cancer Musculoskeletal: History of: Musculoskeletal Problems (SEVERE PAIN IN SKELETAL PART OF HIPS, LEGS, BACK, CHEST.) No history of: Amputation, Back/Neck Problems, Degenerative Disk Disease, Herniated Disk, Osteoporosis, Musculoskeletal Cancer Hematology: History of: Anemia, Sickle Cell Disease No history of: Blood Transfusion Reaction, Bleeding Problems, Clotting Problems, Hematologic Cancer, Blood Disorders Reproductive: History of: Reproductive Problems - Surgical History Thoracic Surgeries: Patient denies;: Organ Transplant, Lobectomy Neurologic Surgeries: Patient denies: Neurologic Surgery HEENT Surgeries: Patient denies: Eye Surgery, Thyroid Surgery, Tonsilectomy & Adenoidectomy Abdominal Surgeries: Surgical HX of: Abdominal Surgery, Cholecystectomy (jan 04, 2006) Patient denies: Appendectomy, Colonoscopy, Gastric Bypass Surgery, EGD, Hernia Repair Reproductive Surgeries: Patient denies;: Breast Surgery, Section, Dilation and Curettage, Gynecologic Surgery, Hysterectomy, Tubal Ligation Orthopedic Surgeries: Patient denies;: Implanted Devices, Orthopedic Surgery, Spinal Surgery, Total Hip Replacement, Total Knee Replacement - Family History Family History: Reports;: Family Cancer (maternal grandmother lung) Denies;: Family Anesthesia Reaction, Family Diabetes, Family Heart Disease, Family Hypertension, Family Psychiatric Problems, Family Stroke - Social History Smoking Status: Never smoker Frequency of Alcohol Use: None Type of Drug Use: None Exam - Constitutional Vitals: Period Temp Pulse Resp BP Sys/Ventura Pulse Ox Last 24 Hr 97.8 F-99.0 F 72-106 16-22 94-121/48-78 96-100 Results - Labs CBC & BMP: 11/05/16 04:51 11/05/16 04:51
--- NOTE | 2016-11-05 12:11 | Hospitalist Progress Note ---
Assessment and Plan (1) Acute sickle cell crisis Status: Resolved Assessment and plan: Continue Dilaudid 1 mg IV every 4 and continue home medicine with Roxicodone and percocet Current Visit: No (2) Anemia of chronic disease Status: Chronic Assessment and plan: 1 unit of PRBC, pretreat, no blood completely compatible with her ab Current Visit: Yes Hospitalist: Subjective Interval history: I spoke with patient's mom today about the problems with blood transfusions. All the blood that were finding now is not completely compatible with all of the antibiotics. Blood bank has brought me a complete list of the antibodies and mom will deliver that to her avionics manager in [place]. Dr. Saravia had taken her on is a patient but patient never went to her psychology appointments and was a no-show at 3 appointments and must be discharged from their practice. Patient currently does not have a primary care doctor. I will speak to her mom next time I see her about these issues. I will give her 1 unit today but pretreat her with Tylenol Atarax and steroid Exam - Constitutional Vitals: Period Temp Pulse Resp BP Sys/Ventura Pulse Ox Last 24 Hr 97.6 F-99.0 F 72-106 16-22 94-121/48-78 96-100 Exam: Heart Rate-[RRR] Lungs-[CTAB] GI-[+bs soft, NT] Ext-[no edema] Neuro [Motor 5/5], [alert and oriented times 3] psych [normal mood and affect] General [no acute distress] Results - Labs CBC & BMP: 11/05/16 04:51 11/05/16 04:51 Lab Results: I have reviewed the past 24 hour labs
[2016-11-05] MEDS: ENOXAPARIN 40 MG/0.4 ML SYRINGE SUBCUT SCH (14:06)
[2016-11-06] MEDS: HYDROmorphone 2 MG/1 ML VIAL IV PRN ×6 (01:07→20:50)
[2016-11-06] MEDS: KETOROLAC 10 MG TABLET PO SCH ×4 (05:42→18:48)
[2016-11-06] MEDS: ACETAMINOPHEN 500 MG TABLET PO SCH ×3 (07:10→18:48)
[2016-11-06] MEDS ORDERED: ACETAMINOPHEN 325 MG TABLET PO PRN (08:47)
[2016-11-06] MEDS: HYDROXYUREA 500 MG CAPSULE PO SCH ×2 (08:51→21:01)
[2016-11-06] MEDS: SODIUM CHLORIDE 0.9% 1,000 ML IV SCH (08:51)
[2016-11-06] MEDS: FOLIC ACID 1 MG TABLET PO SCH (08:51)
[2016-11-06] MEDS ORDERED: BISACODYL 5 MG TABLET PO PRN (09:42)
--- NOTE | 2016-11-06 09:48 | Physician Query Form ---
CLICK EDIT DOCUMENT TO SELECT QUERY ANSWER --> OK --> SIGN Sandra Tracey RN Clinical Staff Readiness Officer W) [phone] (f) [phone] [email or web address] PROVIDERS: Make your selection(s) from the choices in EACH section by typing an "x" and enter comments in the comment section. Please use your independent medical judgment in providing your response. This request does not imply that any particular answer is desired or expected. CLINICAL INDICATORS: (Providers should not edit this section) Height: 5ft Weight: 93lbs Biomedical Engineering Professor BMI: 18.3 Record Center Coordinator notes:Underweight Based on the above, which following choice most accurately represents the patient's nutritional status? ( ) Malnutrition ( ) mild ( ) moderate ( ) severe ( ) Protein calorie malnutrition ( ) mild ( ) moderate ( ) severe ( ) Emaciation due to malnutrition ( ) Nutritional marasmus ( ) Cachexia ( x) Underweight ( ) No nutritional deficiency ( ) Other, please specify: ( ) Clinically unable to determine Mild Malnutrition (BMI < 18.5, % Normal Body Weight 85-95%) Moderate Malnutrition (BMI < 17, % Normal Body Weight 75-85%) Severe Malnutrition (BMI < 16, % Normal Body Weight < 75%) Source: [place] COMMENTS: PLEASE ALSO DOCUMENT RESPONSE IN PROGRESS NOTES AND/OR DISCHARGE SUMMARY Use of terms such as suspected, likely, or probable (associated with a specific diagnosis that is being evaluated, monitored, or treated as if it exists) are acceptable and can be restated in the discharge summary if not ruled out. MTDD
[2016-11-06] MEDS: methylPREDNISolone SOD SUC 40 MG/1 ML VIAL IV SCH ×3 (09:59→18:48)
[2016-11-06] MEDS: MEROPENEM 1,000 MG in SODIUM CHLORIDE 0.9% 100 ML IV SCH ×2 (10:00→20:50)
[2016-11-06] MEDS ORDERED: IBUPROFEN 400 MG TABLET PO PRN (10:18)
--- NOTE | 2016-11-06 10:34 | XRay Report ---
Referring Physician: Ana Santamaria Exam: XR chest 1V portable Date: November 06, 2016 at 9:58 AM Reason: Shortness of breath Comparison: Chest one view portable August 27, 2016 Findings: The cardiac silhouette is again enlarged. There are patchy opacities within the mid and lower lung zones bilaterally, mainly centrally. This could represent pulmonary edema and/or pneumonia. No pneumothorax is identified, but there is mild left pleural fluid and possible minimal right pleural fluid. No acute osseous process is seen. There is curvature of the lower thoracic spine to the left. Impression: 1. Cardiomegaly. 2. There are patchy opacities within the mid and lower lung zones bilaterally. This could represent pulmonary edema and/or pneumonia. There is also mild left pleural fluid and possible minimal right pleural fluid. PROCEDURE INTERPRETED AT [facility] DEPARTMENT OF RADIOLOGY Final Report Signed by: Dr. Elysia Art
[2016-11-06] MEDS: ALBUTEROL 1.25 MG/3 ML NEB RESP TX SCH ×4 (11:04→23:00)
[2016-11-06 11:15] LABS: Basophils % 0.2 % (0.0-0.8); Hemoglobin 6.5 GM/DL (12.0-16.0); Immature Granulocytes Absolute 0.17 #; Lymphocytes # 1.9 10*3/uL (1.4-4.0); Lymphocytes % 11.7 % (21.3-54.2); Mean Corpuscular HGB Conc 36.7 GM/DL (32-36); Mean Corpuscular Hemoglobin 39 PG (27-34); Mean Corpuscular Volume 106.6 FL (87-102); Mean Platelet Volume 10.5 FL (9.6-12.0); Monocytes # 0.4 10*3/uL (0.11-0.8); Monocytes % 2.6 % (1.7-12.7); NRBC # 0.19 10*3/uL; Neutrophils # 13.8 10*3/uL (1.4-7.4); Neutrophils % 84.5 % (38.7-73.9); Platelet Count 215 T/CUMM (130-400); Red Blood Count 1.66 MC/CUMM (3.8-5.5); Red Cell Distribution Width 22.5 % (9.3-17.3); White Blood Count 16.4 T/CUMM (4-12)
[2016-11-06 11:22] LABS: Hematocrit 17.7 VOL% (35.7-47.0)
[2016-11-06 11:36] LABS: Macrocytosis Slight; Polychromasia Slight
[2016-11-06 11:37] LABS: Sickle Cells Slight; Target Cells Few
[2016-11-06 11:38] LABS: Howell-Jolly Bodies Slight; Hypochromasia 1+; Pappenheimer Bodies Slight
[2016-11-06 11:39] LABS: Anisocytosis 1+
--- NOTE | 2016-11-06 12:04 | Hospitalist Progress Note ---
Assessment and Plan (1) Acute sickle cell crisis Status: Resolved Assessment and plan: Continue Dilaudid 1 mg IV every 4 and continue home medicine with Roxicodone and percocet Current Visit: No (2) Anemia of chronic disease Status: Chronic Assessment and plan: Hemoglobin count better today Current Visit: Yes (3) Bilateral pneumonia Status: Acute Assessment and plan: Chest x-ray showed pneumonia and pulmonary edema both. We will give her 1 dose of Lasix Hep-Lock the fluids continue the meropenem, sputum culture sent down. Current Visit: Yes Hospitalist: Subjective Interval history: Patient looks worse today. Her white count has gone up to 16.4. She has been coughing all night she is coughing up is yellowish thick sputum. She is running fevers at 101. We are doing blood cultures today. Started her on meropenem. Started her on breathing treatments. Communicated to mom her diagnosis. Had long conversation patient's mother this morning. She is only aware of urination missing one appointment with Dr. Saravia. She had a miss her appointment with her psychologist due to exams. Mom will go and make the appointment with the psychologist tomorrow and call and talk to the duty officer for Dr. Saravia. Exam - Constitutional Vitals: Period Temp Pulse Resp BP Sys/Ventura Pulse Ox Last 24 Hr 97.0 F-101.0 F 72-109 18-20 101-132/58-88 93-100 Exam: Heart Rate-Tachycardia ] Lungs-[bilateral course rhonchi ] GI-[+bs soft, NT] Ext-[no edema] Neuro [Motor 5/5], [alert and oriented times 3] psych [normal mood and affect] General [Mild acute distress] Results - Labs CBC & BMP: 11/06/16 10:41 11/05/16 04:51 Lab Results: I have reviewed the past 24 hour labs Labs: blood cx pending - Diagnostic Findings Procedure: Chest x-ray: report reviewed by me (bilateral pneumonia and pulmonary edema )
[2016-11-06] MEDS ORDERED: FUROSEMIDE 20 MG TABLET PO ONE (12:08)
[2016-11-06] MEDS: ENOXAPARIN 40 MG/0.4 ML SYRINGE SUBCUT SCH (14:21)
[2016-11-06 15:56] LABS: Hematocrit 19.6 VOL% (35.7-47.0); Hemoglobin 7.4 GM/DL (12.0-16.0)
[2016-11-07] MEDS: ACETAMINOPHEN 500 MG TABLET PO SCH ×4 (00:03→18:58)
[2016-11-07] MEDS: KETOROLAC 10 MG TABLET PO SCH ×4 (00:08→18:58)
[2016-11-07] MEDS: oxyCODONE/ACETAMINOPHEN 5-325 MG TABLET PO PRN ×3 (00:09→20:12)
[2016-11-07] MEDS: ALBUTEROL 1.25 MG/3 ML NEB RESP TX SCH ×6 (03:00→23:31)
[2016-11-07] MEDS: HYDROmorphone 2 MG/1 ML VIAL IV PRN ×5 (03:34→22:08)
[2016-11-07] MEDS: methylPREDNISolone SOD SUC 40 MG/1 ML VIAL IV SCH ×3 (03:34→18:59)
[2016-11-07] MEDS: MEROPENEM 1,000 MG in SODIUM CHLORIDE 0.9% 100 ML IV SCH ×3 (03:35→18:59)
[2016-11-07 07:00] LABS: Basophils % 0.1 % (0.0-0.8); Hemoglobin 6.5 GM/DL (12.0-16.0); Immature Granulocytes % 1.6 %; Immature Granulocytes Absolute 0.36 #; Lymphocytes # 1.6 10*3/uL (1.4-4.0); Lymphocytes % 7.1 % (21.3-54.2); Mean Corpuscular HGB Conc 37.1 GM/DL (32-36); Mean Corpuscular Hemoglobin 39 PG (27-34); Mean Corpuscular Volume 105.4 FL (87-102); Mean Platelet Volume 10.5 FL (9.6-12.0); Monocytes # 0.1 10*3/uL (0.11-0.8); Monocytes % 0.6 % (1.7-12.7); NRBC # 0.17 10*3/uL; Neutrophils # 20.6 10*3/uL (1.4-7.4); Neutrophils % 90.6 % (38.7-73.9); Platelet Count 217 T/CUMM (130-400); Red Blood Count 1.66 MC/CUMM (3.8-5.5); Red Cell Distribution Width 21.6 % (9.3-17.3); White Blood Count 22.8 T/CUMM (4-12)
[2016-11-07 07:07] LABS: Hematocrit 17.5 VOL% (35.7-47.0)
[2016-11-07 07:47] LABS: Elliptocytes Few; Hypochromasia 1+; Lymphocytes 9 % (20-55); Platelet Estimate Adequate; Segmented Neutrophils 91 % (50-85); Total Cells Counted 100
[2016-11-07 07:48] LABS: Giant Platelets Few; Howell-Jolly Bodies Slight; Macrocytosis Slight; Pappenheimer Bodies Slight; Target Cells Few
[2016-11-07 07:49] LABS: Sickle Cells Slight
[2016-11-07] MEDS: HYDROXYUREA 500 MG CAPSULE PO SCH ×2 (08:49→20:12)
[2016-11-07] MEDS: FOLIC ACID 1 MG TABLET PO SCH (08:50)
[2016-11-07] MEDS ORDERED: PHENOL 1.4% THROAT SPRAY 177 ML BOTTLE PO PRN (09:49)
[2016-11-07] MEDS ORDERED: HYDROmorphone 2 MG/1 ML VIAL IV PRN (11:47)
--- NOTE | 2016-11-07 11:49 | Hospitalist Progress Note ---
Assessment and Plan (1) Acute sickle cell crisis Status: Resolved Assessment and plan: Decrease Dilaudid 0.5 mg IV every 4 and continue home medicine with Roxicodone and percocet Current Visit: No (2) Anemia of chronic disease Status: Chronic Assessment and plan: Hemoglobin stable Current Visit: Yes (3) Bilateral pneumonia Status: Acute Assessment and plan: Continue meropenem, sputum culture gram-positive cocci pairs and chains. Could be strep or enterococcus. We will add vancomycin. Current Visit: Yes Hospitalist: Subjective Interval history: Patient is feeling a little bit better today. Her lungs sound better. She is wanting some Chloraseptic [place] for throat. She would like to get home soon. On the lower her Dilaudid dose today. Exam - Constitutional Vitals: Period Temp Pulse Resp BP Sys/Ventura Pulse Ox Last 24 Hr 97.4 F-99.6 F 75-106 20-22 108-114/66-72 85-98 Exam: Heart Rate-regular rate and rhythm] Lungs-[rhonchi improved GI-[+bs soft, NT] Ext-[no edema] Neuro [Motor 5/5], [alert and oriented times 3] psych [normal mood and affect] General [no acute distress] Results - Labs CBC & BMP: 11/07/16 06:43 11/05/16 04:51 Lab Results: I have reviewed the past 24 hour labs
[2016-11-07] MEDS ORDERED: KETOROLAC 10 MG TABLET PO PRN (11:52)
[2016-11-07] MEDS ORDERED: LORazepam 2 MG/1 ML VIAL IV ONE (13:05)
[2016-11-07] MEDS ORDERED: ALUM/MAG/SIMETH/LIDO VISC 1:1 30 ML BOTTLE PO ONE (14:00)
[2016-11-07] MEDS: ENOXAPARIN 40 MG/0.4 ML SYRINGE SUBCUT SCH (14:23)
[2016-11-07] MEDS: VANCOMYCIN INJ 750 MG in SODIUM CHLORIDE 0.9% 250 ML IV SCH ×2 (14:24→20:22)
[2016-11-08] MEDS: ACETAMINOPHEN 500 MG TABLET PO SCH ×4 (00:11→18:12)
[2016-11-08] MEDS: KETOROLAC 10 MG TABLET PO SCH ×4 (00:15→18:12)
[2016-11-08] MEDS: HYDROmorphone 2 MG/1 ML VIAL IV PRN ×7 (00:15→20:28)
[2016-11-08] MEDS: methylPREDNISolone SOD SUC 40 MG/1 ML VIAL IV SCH ×2 (02:41→09:28)
[2016-11-08] MEDS: MEROPENEM 1,000 MG in SODIUM CHLORIDE 0.9% 100 ML IV SCH ×2 (02:41→09:29)
[2016-11-08] MEDS: ALBUTEROL 1.25 MG/3 ML NEB RESP TX SCH ×5 (03:43→20:13)
[2016-11-08] MEDS: VANCOMYCIN INJ 750 MG in SODIUM CHLORIDE 0.9% 250 ML IV SCH ×3 (05:43→22:10)
[2016-11-08 07:10] LABS: Basophils % 0.1 % (0.0-0.8); Immature Granulocytes % 1.3 %; Immature Granulocytes Absolute 0.24 #; Lymphocytes # 2.3 10*3/uL (1.4-4.0); Lymphocytes % 12.8 % (21.3-54.2); Mean Corpuscular HGB Conc 36.8 GM/DL (32-36); Mean Corpuscular Hemoglobin 39 PG (27-34); Mean Corpuscular Volume 106.7 FL (87-102); Mean Platelet Volume 10.9 FL (9.6-12.0); Monocytes # 0.3 10*3/uL (0.11-0.8); Monocytes % 1.7 % (1.7-12.7); NRBC # 0.86 10*3/uL; Neutrophils # 15.2 10*3/uL (1.4-7.4); Neutrophils % 84.1 % (38.7-73.9); Platelet Count 246 T/CUMM (130-400); Red Blood Count 1.63 MC/CUMM (3.8-5.5); Red Cell Distribution Width 21.2 % (9.3-17.3); White Blood Count 18.1 T/CUMM (4-12)
[2016-11-08 07:17] LABS: Hematocrit 17.4 VOL% (35.7-47.0); Hemoglobin 6.4 GM/DL (12.0-16.0)
[2016-11-08] MEDS: FOLIC ACID 1 MG TABLET PO SCH (09:31)
[2016-11-08] MEDS: oxyCODONE/ACETAMINOPHEN 5-325 MG TABLET PO PRN ×2 (09:31→15:21)
[2016-11-08] MEDS: HYDROXYUREA 500 MG CAPSULE PO SCH ×2 (09:31→20:27)
--- NOTE | 2016-11-08 13:35 | Hospitalist Progress Note ---
Assessment and Plan (1) Acute sickle cell crisis Status: Resolved Assessment and plan: Resolving continue Dilaudid as needed, home in a.m. Current Visit: No (2) Anemia of chronic disease Status: Chronic Assessment and plan: Hemoglobin stable Current Visit: Yes (3) Bilateral pneumonia Status: Acute Assessment and plan: Growing MRSA continue vancomycin. Stop meropenem. Is sensitive to clindamycin for home. Sounds much better today. Did have a component of volume overload Current Visit: Yes Hospitalist: Subjective Interval history: Patient still having pain in her hips and her back but she is doing better today she was out walking the halls as I requested. Her mom has an appointment to see a psychologist next week. Exam - Constitutional Vitals: Period Temp Pulse Resp BP Sys/Ventura Pulse Ox Last 24 Hr 97.4 F-98.8 F 61-91 18-20 115-137/64-90 91-100 Exam: Heart Rate-regular rate and rhythm] Lungs-[clear GI-[+bs soft, NT] Ext-[no edema] Neuro [Motor 5/5], [alert and oriented times 3] psych [normal mood and affect] General [no acute distress] Results - Labs CBC & BMP: 11/08/16 06:39 11/05/16 04:51 Lab Results: I have reviewed the past 24 hour labs Labs: Blood cultures 2 negative no growth, sputum growing MRSA
[2016-11-08] MEDS: ENOXAPARIN 40 MG/0.4 ML SYRINGE SUBCUT SCH (15:20)
[2016-11-08] MEDS: FUROSEMIDE 20 MG/2 ML VIAL IV SCH (15:20)
[2016-11-08] MEDS: POTASSIUM CHLORIDE 20 MEQ TABLET PO SCH (15:21)
[2016-11-09] MEDS: KETOROLAC 10 MG TABLET PO SCH ×2 (00:02→06:23)
[2016-11-09] MEDS: HYDROmorphone 2 MG/1 ML VIAL IV PRN ×4 (00:02→09:21)
[2016-11-09] MEDS: ACETAMINOPHEN 500 MG TABLET PO SCH ×2 (00:09→06:56)
[2016-11-09] MEDS: ALBUTEROL 1.25 MG/3 ML NEB RESP TX SCH ×4 (00:10→10:56)
[2016-11-09 06:02] LABS: Basophils % 0.1 % (0.0-0.8); Immature Granulocytes % 0.6 %; Immature Granulocytes Absolute 0.14 #; Lymphocytes # 11.3 10*3/uL (1.4-4.0); Lymphocytes % 51.3 % (21.3-54.2); Mean Corpuscular HGB Conc 36.5 GM/DL (32-36); Mean Corpuscular Hemoglobin 40 PG (27-34); Mean Corpuscular Volume 108.3 FL (87-102); Monocytes # 1.2 10*3/uL (0.11-0.8); Monocytes % 5.6 % (1.7-12.7); NRBC # 2.53 10*3/uL; Neutrophils # 9.4 10*3/uL (1.4-7.4); Neutrophils % 42.4 % (38.7-73.9); Platelet Count 276 T/CUMM (130-400); Red Blood Count 1.57 MC/CUMM (3.8-5.5); Red Cell Distribution Width 20.5 % (9.3-17.3); White Blood Count 22.1 T/CUMM (4-12)
[2016-11-09 06:13] LABS: Hemoglobin 6.2 GM/DL (12.0-16.0)
[2016-11-09] MEDS: VANCOMYCIN INJ 750 MG in SODIUM CHLORIDE 0.9% 250 ML IV SCH (06:26)
[2016-11-09 06:35] LABS: Elliptocytes Few; Lymphocytes 57 % (20-55); Macrocytosis Slight; Nucleated Red Blood Cells 15 (0-5); Platelet Estimate Adequate; Polychromasia Slight; Segmented Neutrophils 38 % (50-85); Target Cells Few; Total Cells Counted 100
[2016-11-09 06:36] LABS: Giant Platelets Few; Howell-Jolly Bodies Few; Hypochromasia 1+; Pappenheimer Bodies Slight; Sickle Cells Slight
[2016-11-09] MEDS ORDERED: predniSONE 20 MG TABLET PO SCH (09:00)
[2016-11-09] MEDS: POTASSIUM CHLORIDE 20 MEQ TABLET PO SCH (09:17)
[2016-11-09] MEDS: FUROSEMIDE 20 MG/2 ML VIAL IV SCH (09:17)
[2016-11-09] MEDS: HYDROXYUREA 500 MG CAPSULE PO SCH (09:17)
[2016-11-09] MEDS: FOLIC ACID 1 MG TABLET PO SCH (09:18)
--- NOTE | 2016-11-09 11:12 | Discharge Summary ---
<Azeb Buenrostro - Last Filed: 11/09/16 11:03> Hospital Course - Hospital Course Hospital Course: Ms. Hess is a 21-year-old -[place] female with a history of sickle cell who presented to the ED on 11/04 with complaints of lower abdominal discomfort and back and thigh pain. Patient's primary care provider was [facility] with patient normally sees Dr. Mihai Saravia for pain treatment in [place]. Patient was admitted to the hospitalist service for further evaluation and treatment. Patient was admitted for pain crisis. Patient was treated with IV fluids, IV analgesics, and antiemetics. Dr. Saravia was consulted to see the patient. Patient reported that she used Percocet, Ultram, and Toradol. Per Dr. Saravia note there were no changes made to the patient's current pain regimen. Patient received a unit of packed red blood cell for anemia. She was pretreated with Tylenol and Atarax as well as a steroid. On 11/06 chest x-ray showed pneumonia and pulmonary edema in both lobes. Patient was placed meropenem and sputum culture grew out MRSA and Vancomycin was added. Hemoglobin dropped down to 5.6 on admission and was given 1 unit packed red blood cells and her hemoglobin is stabilized at 6.2 which is pretty much her baseline. Patient became volume overloaded due to IV fluids. Her IV fluids had to be hep-locked and extra fluid was removed by Lasix. Patient is stable and her crisis has resolved she will be discharged on Percocet today. Follow-up with Dr. Saravia as scheduled, the psychologist as scheduled in with her surgical services asst in [place]. I asked mom to take a copy of her list of antibodies that we found in her blood to her surgical services asst and ask him if there is anything else we can do to prevent more antibodies or prevent her from having blood reactions. Specialty Discharge - Follow Up or Referrals Discharge Plan - Discharge Data Disposition: Disch To Home/Self Care - Discharge Medications New Bisacodyl Tab [Dulcolax Tab] 10 mg PO DAILY PRN tablet PRN Reason: Constipation Clindamycin HCl 300 mg PO TID #30 capsule Oxycodone HCl/Acetaminophen [Percocet 10-325 mg Tablet] 1 each PO Q3-4H #60 tablet Continue Hydroxyurea [Hydrea] 500 mg PO BID capsule Oxycodone HCl/Acetaminophen [Percocet 10-325 mg Tablet] 2 each PO Q6H PRN # 30 tablet PRN Reason: severe pain Folic Acid Tab 1 mg PO QAM Ketorolac Tab [Toradol Tab] 10 mg PO Q6H PRN #120 tablet PRN Reason: Pain - Follow Up or Referral Follow Up: Mihai Saravia MD [Physician] - 11/20/16 3:30 am Hematology, [Other] - 2 Weeks (Antibodies in blood and problems with blood transfusion) PsychologistDr [Other] - 11/30/16 8:30 am - Forms/Instructions Instructions: Sickle Cell Crisis (DC), Sickle Cell Anemia (DC) Exam - Constitutional Vitals: Period Temp Pulse Resp BP Sys/Ventura Pulse Ox Last 24 Hr 97.6 F-98.5 F 60-83 18-20 100-140/60-90 96-100 Discharge Results Procedures and tests throughout hospitalization: Pending Orders 11/04/16 11:22 Red Blood Cells Leuko Red Stat Type and Screen Stat 11/06/16 10:40 Blood Culture Stat Labs on day of discharge: Labs from last 24 hours 11/09/16 11/08/16 04:47 12:44 WBC 22.1 H RBC 1.57 L Hgb 6.2 L* Hct 17.0 L* MCV 108.3 H MCH 40 H MCHC 36.5 H RDW 20.5 H Plt Count 276 MPV 11.0 Neut % (Auto) 42.4 Lymph % (Auto) 51.3 [place] % (Auto) 5.6 Eos % (Auto) 0.0 Baso % (Auto) 0.1 Neut # (Auto) 9.4 H Lymph # (Auto) 11.3 H [place] # (Auto) 1.2 H Eos # (Auto) 0.0 Baso # (Auto) 0.0 Total Counted 100 Immature Gran % 0.6 Nucleated RBC % 11.5 Immature Gran # 0.14 Segmented Neutrophils 38 L Lymphocytes 57 H Monocytes 5 Nucleated RBCs 15 H Nucleated RBCs # 2.53 Platelet Estimate Adequate Giant Platelets Few Polychromasia Slight Hypochromasia 1+ Macrocytosis Slight Pappenheimer Bodies Slight Sickle Cells Slight Target Cells Few [place] Bodies Few Elliptocytes Few Vancomycin Trough 12.9 Preliminary micro results at discharge 11/06/16 10:40 Blood Culture - Preliminary Blood No growth at 3 days 06/06/17 10:46 Blood Culture - Preliminary Blood No growth at 3 days DS: Provider Date of admission: 11/04/16 13:10 Primary care physician: . No PCP Attending physician on admission: Shraddha Chatterjee Consults: 11/04/16 14:11 Consult to Physician [CONS] Routine Comment: Sickle cell/known to you Consulting Provider: Mihai Saravia Person Notified: JINNY Date Notified: 11/05/16 Time Notified: 09:27 11/07/16 11:53 Consult to Pharmacy [CONS] Routine Reason for Pharmacy Consult: Dose/Manage Vancomycin Discharging clinician: Azeb Buenrostro NP <Ana Santamaria Last Filed: 11/09/16 11:45> Hospital Course - Time spent with patient Time with patient DS: Greater than 30 minutes (35 min) Diagnosis - Discharge Diagnosis (1) Acute sickle cell crisis Status: Resolved (2) Anemia of chronic disease Status: Chronic (3) Bilateral pneumonia Status: Acute Discharge Plan - Discharge Data Condition at Discharge: Stable Discharge Diet: regular diet Activity: resume usual activities as tolerated Hygiene: no restrictions Weight Bearing at Discharge: full weight bearing Driving: no restrictions Exam - Constitutional General appearance: no acute distress, under weight - Respiratory Respiratory exam: Present: clear to auscultation bilaterally - Cardiovascular Cardiovascular exam: Present: regular rate and rhythm. Absent: systolic murmur - GI/Abdominal GI/Abdominal exam: Present: normal bowel sounds, soft. Absent: tenderness - Extremities Exam Extremities exam: Present: normal inspection, normal capillary refill - Neurological Exam Neurological exam: Present: alert, oriented X3 - Psychiatric Psychiatric exam: Present: normal affect, normal mood
[2016-11-09 11:33] VITALS: BP 111/71
== END 2016-11-09 12:10 | disposition home or self-care (01) | DRG 811 ==
LOC: N.ED 10:35 → SUATTDRO 13:10 → N.EDINP 13:10 → N.5E 13:32
PROVIDERS: ADMIT Hospitalist; ATTEND Internal Medicine

== ENCOUNTER 2017-04-22 11:10 | Inpatient (IN) ==
[2017-04-22] MEDS ORDERED: SODIUM CHLORIDE 0.9% 1,000 ML IV STA (12:01)
[2017-04-22] MEDS ORDERED: HYDROmorphone 2 MG/1 ML VIAL IV STA ×2 (12:01→14:22)
[2017-04-22] MEDS ORDERED: PROMETHAZINE 25 MG/1 ML VIAL IM STA (12:07)
[2017-04-22] MEDS ORDERED: PROMETHAZINE 25 MG/1 ML VIAL ONE (12:40)
[2017-04-22] MEDS ORDERED: HYDROmorphone 2 MG/1 ML VIAL ONE ×2 (12:40→14:18)
[2017-04-22 13:18] LABS: Basophils # 0.2 10*3/uL (0.0-0.2); Basophils % 0.9 % (0.0-0.8); Eosinophils # 0.4 10*3/uL (0.0-0.87); Eosinophils % 2.3 % (0.00-10.9); Hematocrit 18.9 VOL% (35.7-47.0); Hemoglobin 7.3 GM/DL (12.0-16.0); Immature Granulocytes % 0.6 %; Immature Granulocytes Absolute 0.11 #; Lymphocytes # 6.4 10*3/uL (1.4-4.0); Lymphocytes % 36.6 % (21.3-54.2); Mean Corpuscular HGB Conc 38.6 GM/DL (32-36); Mean Corpuscular Hemoglobin 35 PG (27-34); Mean Corpuscular Volume 91.3 FL (87-102); Mean Platelet Volume 9.8 FL (9.6-12.0); Monocytes # 1.3 10*3/uL (0.11-0.8); Monocytes % 7.7 % (1.7-12.7); NRBC # 0.26 10*3/uL; Neutrophils # 9.1 10*3/uL (1.4-7.4); Neutrophils % 51.9 % (38.7-73.9); Platelet Count 557 T/CUMM (130-400); Red Blood Count 2.07 MC/CUMM (3.8-5.5); Red Cell Distribution Width 21.9 % (9.3-17.3); White Blood Count 17.5 T/CUMM (4-12)
[2017-04-22 13:51] LABS: Albumin 4.3 G/DL (3.4-5.0); Bilirubin,Total 9.8 MG/DL (0.2-1.0); Calcium 9.3 MG/DL (8.5-10.1); Total Protein 8.6 G/DL (6.4-8.3)
[2017-04-22 13:52] LABS: Magnesium 2.1 MG/DL (1.8-2.4); Osmolality,Calculated 271.8 MOS/KG (273-304); Potassium 4.7 MMOL/L (3.5-5.1)
[2017-04-22] MEDS ORDERED: ACETAMINOPHEN 325 MG TABLET PO PRN (15:30)
[2017-04-22] MEDS ORDERED: oxyCODONE/ACETAMINOPHEN 5-325 MG TABLET PO PRN (16:41)
[2017-04-22] MEDS: SODIUM CHLORIDE 0.9% 1,000 ML IV SCH (17:02)
[2017-04-22] MEDS: HYDROmorphone 2 MG/1 ML VIAL IV PRN ×3 (17:02→20:57)
[2017-04-22] MEDS: hydrOXYzine HCL 25 MG TABLET PO SCH ×2 (17:37→20:45)
[2017-04-22] MEDS: HYDROXYUREA 500 MG CAPSULE PO SCH (20:45)
[2017-04-22] MEDS: oxyCODONE ER 20 MG TABLET PO SCH (20:45)
[2017-04-23] MEDS: HYDROmorphone 2 MG/1 ML VIAL IV PRN ×6 (01:56→21:47)
[2017-04-23] MEDS: SODIUM CHLORIDE 0.9% 1,000 ML IV SCH ×3 (02:00→14:42)
[2017-04-23 03:45] LABS: Apearance,Urine CLEAR (Clear); Bacteria,Urine Few /HPF (Few); Bilirubin,Urine Negative (Negative); Blood, Urine Large mg/dL (Negative); Glucose,Urine (UA) Negative (Negative); Granular Casts,Urine 1 /LPF (0-1); Hyaline Casts,Urine 2 /LPF (0-3); Ketones,Urine Negative (Negative); Mucus,Urine Occasional /LPF (Occasional); Nitrite,Urine Negative (Negative); Protein,Urine Negative; RBC,Urine 8 /HPF (0-4); Squamous Epithelial Cell,Urine Occasional /HPF (0-10); Urine Color Yellow (Yellow); Urine Specific Gravity 1.008 (1.001-1.035); Urine Urobilinogen < 2.0 EU/DL (0.2-1.0); WBC,Urine 20 /HPF (0-6)
[2017-04-23 07:25] LABS: Calcium 8.5 MG/DL (8.5-10.1); Osmolality,Calculated 277.3 MOS/KG (273-304); Potassium 4.3 MMOL/L (3.5-5.1)
[2017-04-23 07:31] LABS: Basophils # 0.1 10*3/uL (0.0-0.2); Basophils % 0.4 % (0.0-0.8); Eosinophils # 0.6 10*3/uL (0.0-0.87); Eosinophils % 2.6 % (0.00-10.9); Immature Granulocytes % 0.6 %; Immature Granulocytes Absolute 0.13 #; Lymphocytes # 7.1 10*3/uL (1.4-4.0); Lymphocytes % 34.2 % (21.3-54.2); Mean Corpuscular HGB Conc 39.6 GM/DL (32-36); Mean Corpuscular Hemoglobin 36 PG (27-34); Mean Corpuscular Volume 90.3 FL (87-102); Mean Platelet Volume 9.7 FL (9.6-12.0); Monocytes # 1.9 10*3/uL (0.11-0.8); NRBC # 0.18 10*3/uL; Neutrophils # 11.1 10*3/uL (1.4-7.4); Neutrophils % 53.2 % (38.7-73.9); Platelet Count 439 T/CUMM (130-400); Red Blood Count 1.54 MC/CUMM (3.8-5.5); Red Cell Distribution Width 20.6 % (9.3-17.3); White Blood Count 20.9 T/CUMM (4-12)
[2017-04-23 07:36] LABS: Hematocrit 13.9 VOL% (35.7-47.0); Hemoglobin 5.5 GM/DL (12.0-16.0)
[2017-04-23 07:58] LABS: Eosinophils 2 % (0-10); Hypochromasia 1+; Lymphocytes 31 % (20-55); Segmented Neutrophils 59 % (50-85); Total Cells Counted 100
[2017-04-23 07:59] LABS: Microcytosis 1+; Ovalocytes Few; Platelet Estimate Increased; Polychromasia Slight; Sickle Cells 1+; Target Cells Slight
[2017-04-23 08:00] LABS: Howell-Jolly Bodies Slight
[2017-04-23 08:01] LABS: Pappenheimer Bodies Slight
[2017-04-23] MEDS: oxyCODONE ER 20 MG TABLET PO SCH ×2 (09:22→20:08)
[2017-04-23] MEDS: HYDROXYUREA 500 MG CAPSULE PO SCH ×2 (09:22→20:08)
[2017-04-23] MEDS: FOLIC ACID 1 MG TABLET PO SCH (09:22)
[2017-04-23] MEDS: hydrOXYzine HCL 25 MG TABLET PO SCH ×4 (09:23→20:08)
[2017-04-23] MEDS: cefTRIAXone 1,000 MG in SYRINGE 1 EACH IV SCH (11:09)
[2017-04-23 11:48] LABS: % Iron Saturation 80.7 % (18-50); Ferritin 589.6 ng/ml (8-252)
[2017-04-23 11:58] LABS: Folate 12.2 NG/ML (5.4-24.0)
[2017-04-23] MEDS: ESCITALOPRAM 10 MG TABLET PO SCH (14:08)
[2017-04-23] MEDS: POLYETHYLENE GLYCOL POWDER 17 GM PACK PO SCH (14:08)
[2017-04-24] MEDS: HYDROmorphone 2 MG/1 ML VIAL IV PRN ×8 (04:33→20:27)
[2017-04-24] MEDS: HYDROXYUREA 500 MG CAPSULE PO SCH ×2 (09:01→20:29)
[2017-04-24] MEDS: ESCITALOPRAM 10 MG TABLET PO SCH (09:01)
[2017-04-24] MEDS: oxyCODONE ER 20 MG TABLET PO SCH ×2 (09:02→20:30)
[2017-04-24] MEDS: FOLIC ACID 1 MG TABLET PO SCH (09:02)
[2017-04-24] MEDS: hydrOXYzine HCL 25 MG TABLET PO SCH ×4 (09:09→20:30)
[2017-04-24] MEDS: POLYETHYLENE GLYCOL POWDER 17 GM PACK PO SCH (09:10)
[2017-04-24 09:32] LABS: Basophils # 0.1 10*3/uL (0.0-0.2); Basophils % 0.5 % (0.0-0.8); Eosinophils # 0.5 10*3/uL (0.0-0.87); Eosinophils % 2.4 % (0.00-10.9); Immature Granulocytes % 0.5 %; Lymphocytes # 7.2 10*3/uL (1.4-4.0); Lymphocytes % 34.4 % (21.3-54.2); Mean Corpuscular HGB Conc 39.3 GM/DL (32-36); Mean Corpuscular Hemoglobin 36 PG (27-34); Mean Corpuscular Volume 90.3 FL (87-102); Monocytes # 2.2 10*3/uL (0.11-0.8); Monocytes % 10.2 % (1.7-12.7); NRBC # 0.21 10*3/uL; Neutrophils # 10.9 10*3/uL (1.4-7.4); Platelet Count 461 T/CUMM (130-400); Red Blood Count 1.55 MC/CUMM (3.8-5.5); Red Cell Distribution Width 19.9 % (9.3-17.3)
[2017-04-24 09:39] LABS: Hemoglobin 5.5 GM/DL (12.0-16.0)
[2017-04-24 09:59] LABS: Poikilocytosis 1+
[2017-04-24 10:00] LABS: Ovalocytes Slight; Platelet Estimate Normal; Sickle Cells 1+
[2017-04-24 10:01] LABS: Calcium 8.4 MG/DL (8.5-10.1); Magnesium 1.8 MG/DL (1.8-2.4); Osmolality,Calculated 277.3 MOS/KG (273-304); Potassium 3.7 MMOL/L (3.5-5.1)
[2017-04-24] MEDS ORDERED: MAGNESIUM CITRATE 300 ML BOTTLE PO ONE (10:55)
[2017-04-24] MEDS: SODIUM CHLORIDE 0.9% 1,000 ML IV SCH (12:34)
[2017-04-24] MEDS: cefTRIAXone 1,000 MG in SYRINGE 1 EACH IV SCH (16:02)
[2017-04-25] MEDS: HYDROmorphone 2 MG/1 ML VIAL IV PRN ×5 (01:03→13:06)
[2017-04-25] MEDS: SODIUM CHLORIDE 0.9% 1,000 ML IV SCH (01:07)
[2017-04-25] MEDS: HYDROXYUREA 500 MG CAPSULE PO SCH (08:05)
[2017-04-25] MEDS: oxyCODONE ER 20 MG TABLET PO SCH (08:06)
[2017-04-25] MEDS: hydrOXYzine HCL 25 MG TABLET PO SCH ×2 (08:06→13:08)
[2017-04-25] MEDS: ESCITALOPRAM 10 MG TABLET PO SCH (08:06)
[2017-04-25] MEDS: FOLIC ACID 1 MG TABLET PO SCH (08:06)
[2017-04-25] MEDS: POLYETHYLENE GLYCOL POWDER 17 GM PACK PO SCH (08:06)
[2017-04-25] MEDS ORDERED: IBUPROFEN 600 MG TABLET PO ONE (09:50)
[2017-04-25 10:40] LABS: Basophils % 0.2 % (0.0-0.8); Eosinophils # 0.5 10*3/uL (0.0-0.87); Eosinophils % 2.4 % (0.00-10.9); Immature Granulocytes % 0.6 %; Immature Granulocytes Absolute 0.12 #; Lymphocytes % 30.4 % (21.3-54.2); Mean Corpuscular Hemoglobin 36 PG (27-34); Mean Corpuscular Volume 90.2 FL (87-102); Monocytes # 1.5 10*3/uL (0.11-0.8); Monocytes % 7.6 % (1.7-12.7); NRBC # 0.67 10*3/uL; Neutrophils # 11.6 10*3/uL (1.4-7.4); Neutrophils % 58.8 % (38.7-73.9); Platelet Count 439 T/CUMM (130-400); Red Blood Count 1.33 MC/CUMM (3.8-5.5); Red Cell Distribution Width 19.4 % (9.3-17.3); White Blood Count 19.8 T/CUMM (4-12)
[2017-04-25 10:43] LABS: Hemoglobin 4.8 GM/DL (12.0-16.0)
[2017-04-25] MEDS: cefTRIAXone 1,000 MG in SYRINGE 1 EACH IV SCH (10:55)
[2017-04-25 11:21] LABS: Band Neutrophils 1 % (0-10); Eosinophils 2 % (0-10); Giant Platelets Few; Hypochromasia 1+; Lymphocytes 31 % (20-55); Nucleated Red Blood Cells 7 (0-5); Platelet Estimate Adequate; Segmented Neutrophils 62 % (50-85); Total Cells Counted 100
[2017-04-25 11:22] LABS: Elliptocytes Few; Howell-Jolly Bodies Slight; Macrocytosis Slight; Pappenheimer Bodies Slight; Polychromasia Slight; Sickle Cells 1+; Target Cells Few
[2017-04-25] MEDS ORDERED: SODIUM CHLORIDE 0.9% 1,000 ML IV PRN (11:32)
[2017-04-25 14:53] VITALS: BP 106/37
== END 2017-04-25 13:50 | disposition home or self-care (01) | DRG 812 ==
LOC: N.EDINP 11:10 → N.ED 11:10 → OBSVTOIN 14:58 → SUATTDRO 14:58 → N.4E 16:45
PROVIDERS: ADMIT Internal Medicine; ATTEND Internal Medicine

== ENCOUNTER 2017-06-20 20:07 | Inpatient (IN) ==
[2017-06-20] MEDS ORDERED: SODIUM CHLORIDE 0.9% 1,000 ML IV STA (21:09)
[2017-06-20] MEDS ORDERED: HYDROmorphone 2 MG/1 ML VIAL IV STA ×3 (21:15→22:46)
[2017-06-20] MEDS ORDERED: HYDROmorphone 2 MG/1 ML VIAL ONE ×3 (21:23→22:51)
[2017-06-20 22:02] LABS: Basophils # 0.2 10*3/uL (0.0-0.2); Basophils % 0.9 % (0.0-0.8); Eosinophils # 0.4 10*3/uL (0.0-0.87); Eosinophils % 2.1 % (0.00-10.9); Hematocrit 18.2 VOL% (35.7-47.0); Hemoglobin 6.5 GM/DL (12.0-16.0); Immature Granulocytes % 0.4 %; Immature Granulocytes Absolute 0.09 #; Lymphocytes # 8.3 10*3/uL (1.4-4.0); Lymphocytes % 41.3 % (21.3-54.2); Mean Corpuscular HGB Conc 35.7 GM/DL (32-36); Mean Corpuscular Hemoglobin 33 PG (27-34); Mean Corpuscular Volume 93.3 FL (87-102); Mean Platelet Volume 10.1 FL (9.6-12.0); Monocytes # 2.2 10*3/uL (0.11-0.8); Monocytes % 11.1 % (1.7-12.7); NRBC # 0.12 10*3/uL; Neutrophils # 8.9 10*3/uL (1.4-7.4); Neutrophils % 44.2 % (38.7-73.9); Platelet Count 493 T/CUMM (130-400); Red Blood Count 1.95 MC/CUMM (3.8-5.5); Red Cell Distribution Width 17.1 % (9.3-17.3); White Blood Count 20.1 T/CUMM (4-12)
[2017-06-20 22:11] LABS: Apearance,Urine Slightly Hazy (Clear); Bacteria,Urine Few /HPF (Few); Bilirubin,Urine Negative (Negative); Blood, Urine Small mg/dL (Negative); Glucose,Urine (UA) Negative (Negative); Ketones,Urine Negative (Negative); Mucus,Urine Occasional /LPF (Occasional); Nitrite,Urine Negative (Negative); Protein,Urine Negative; RBC,Urine 2 /HPF (0-4); Squamous Epithelial Cell,Urine Occasional /HPF (0-10); Urine Color Amber (Yellow); Urine Specific Gravity 1.009 (1.001-1.035); WBC,Urine 4 /HPF (0-6)
[2017-06-20 22:27] LABS: Albumin 3.9 G/DL (3.4-5.0); Bilirubin,Total 8.8 MG/DL (0.2-1.0); Calcium 8.7 MG/DL (8.5-10.1); Osmolality,Calculated 267.1 MOS/KG (273-304); Potassium 4.6 MMOL/L (3.5-5.1); Total Protein 8.4 G/DL (6.4-8.3)
[2017-06-20 22:30] LABS: Eosinophils 3 % (0-10); Lymphocytes 49 % (20-55); Segmented Neutrophils 39 % (50-85); Total Cells Counted 100
[2017-06-20 22:31] LABS: Anisocytosis 1+
[2017-06-20 22:32] LABS: Hypochromasia 2+; Ovalocytes 2+; Platelet Estimate Normal; Sickle Cells 1+; Target Cells 1+
[2017-06-20] MEDS ORDERED: SODIUM CHLORIDE 0.9% 1,000 ML IV PRN (22:44)
[2017-06-21] MEDS ORDERED: SODIUM CHLORIDE 0.9% 1,000 ML IV PRN ×2 (00:53→03:56)
[2017-06-21] MEDS ORDERED: hydrOXYzine HCL 25 MG TABLET PO PRN (00:54)
[2017-06-21] MEDS: SODIUM CHLORIDE 0.9% 1,000 ML IV SCH ×2 (03:11→14:10)
[2017-06-21] MEDS: HYDROmorphone 2 MG/1 ML VIAL IV PRN ×7 (04:39→23:43)
[2017-06-21 07:49] LABS: Basophils # 0.1 10*3/uL (0.0-0.2); Basophils % 0.7 % (0.0-0.8); Eosinophils # 0.5 10*3/uL (0.0-0.87); Eosinophils % 2.8 % (0.00-10.9); Hematocrit 15.4 VOL% (35.7-47.0); Immature Granulocytes % 0.4 %; Immature Granulocytes Absolute 0.07 #; Lymphocytes # 7.8 10*3/uL (1.4-4.0); Lymphocytes % 45.7 % (21.3-54.2); Mean Corpuscular HGB Conc 35.7 GM/DL (32-36); Mean Corpuscular Hemoglobin 33 PG (27-34); Mean Corpuscular Volume 93.3 FL (87-102); Mean Platelet Volume 9.8 FL (9.6-12.0); Monocytes # 2.1 10*3/uL (0.11-0.8); Monocytes % 12.1 % (1.7-12.7); NRBC # 0.11 10*3/uL; Neutrophils # 6.5 10*3/uL (1.4-7.4); Neutrophils % 38.3 % (38.7-73.9); Platelet Count 420 T/CUMM (130-400); Red Blood Count 1.65 MC/CUMM (3.8-5.5); Red Cell Distribution Width 17.6 % (9.3-17.3)
[2017-06-21 07:50] LABS: Hemoglobin 5.5 GM/DL (12.0-16.0)
[2017-06-21 08:20] LABS: Bilirubin,Total 6.7 MG/DL (0.2-1.0); Calcium 8.4 MG/DL (8.5-10.1); Osmolality,Calculated 270.8 MOS/KG (273-304); Potassium 4.5 MMOL/L (3.5-5.1); Total Protein 6.5 G/DL (6.4-8.3)
[2017-06-21] MEDS: ENOXAPARIN 40 MG/0.4 ML SYRINGE SUBCUT SCH (08:50)
[2017-06-21] MEDS: PANTOPRAZOLE 40 MG TABLET PO SCH (08:50)
[2017-06-21] MEDS: HYDROXYUREA 500 MG CAPSULE PO SCH ×2 (08:50→20:46)
[2017-06-21] MEDS: ESCITALOPRAM 10 MG TABLET PO SCH (08:50)
[2017-06-21] MEDS: FOLIC ACID 1 MG TABLET PO SCH (08:50)
[2017-06-21 09:36] LABS: Eosinophils 1 % (0-10); Lymphocytes 68 % (20-55); Polychromasia 1+; Segmented Neutrophils 28 % (50-85); Sickle Cells 2+; Target Cells Slight; Total Cells Counted 100
[2017-06-21 09:37] LABS: Giant Platelets Few; Howell-Jolly Bodies Few; Platelet Estimate Increased
[2017-06-21] MEDS ORDERED: ACETAMINOPHEN 325 MG TABLET PO PRN (10:17)
[2017-06-21] MEDS: oxyCODONE ER 20 MG TABLET PO SCH ×2 (11:04→20:46)
[2017-06-22] MEDS: HYDROmorphone 2 MG/1 ML VIAL IV PRN ×7 (02:42→22:23)
[2017-06-22] MEDS: SODIUM CHLORIDE 0.9% 1,000 ML IV SCH ×3 (05:39→15:55)
[2017-06-22] MEDS: FOLIC ACID 1 MG TABLET PO SCH (08:33)
[2017-06-22] MEDS: ENOXAPARIN 40 MG/0.4 ML SYRINGE SUBCUT SCH (08:33)
[2017-06-22] MEDS: ESCITALOPRAM 10 MG TABLET PO SCH (08:33)
[2017-06-22] MEDS: oxyCODONE ER 20 MG TABLET PO SCH ×2 (08:33→21:12)
[2017-06-22] MEDS: HYDROXYUREA 500 MG CAPSULE PO SCH ×2 (08:33→21:11)
[2017-06-22] MEDS: PANTOPRAZOLE 40 MG TABLET PO SCH (08:33)
[2017-06-22] MEDS ORDERED: MAGNESIUM CITRATE 300 ML BOTTLE PO ONE (10:07)
[2017-06-22] MEDS: POLYETHYLENE GLYCOL POWDER 17 GM PACK PO SCH (13:07)
[2017-06-23] MEDS: HYDROmorphone 2 MG/1 ML VIAL IV PRN ×3 (01:19→08:55)
[2017-06-23] MEDS: SODIUM CHLORIDE 0.9% 1,000 ML IV SCH (02:06)
[2017-06-23] MEDS: ENOXAPARIN 40 MG/0.4 ML SYRINGE SUBCUT SCH (08:56)
[2017-06-23] MEDS: ESCITALOPRAM 10 MG TABLET PO SCH (08:56)
[2017-06-23] MEDS: PANTOPRAZOLE 40 MG TABLET PO SCH (08:56)
[2017-06-23] MEDS: HYDROXYUREA 500 MG CAPSULE PO SCH (08:56)
[2017-06-23] MEDS: oxyCODONE ER 20 MG TABLET PO SCH (08:56)
[2017-06-23] MEDS: FOLIC ACID 1 MG TABLET PO SCH (08:56)
[2017-06-23] MEDS: POLYETHYLENE GLYCOL POWDER 17 GM PACK PO SCH (08:57)
[2017-06-23 09:45] VITALS: BP 104/61
[2017-06-23] MEDS ORDERED: KETOROLAC 30 MG/1 ML VIAL IV ONE (10:25)
[2017-06-23] MEDS ORDERED: MAGNESIUM CITRATE 300 ML BOTTLE PO ONE (10:28)
[2017-06-23] MEDS ORDERED: HYDROmorphone 2 MG/1 ML VIAL IV PRN (13:25)
== END 2017-06-23 14:05 | disposition home or self-care (01) | DRG 812 ==
LOC: N.ED 20:07 → N.EDINP 06-21 00:09 → N.4E 06-21 15:51
PROVIDERS: ADMIT Internal Medicine; ATTEND Internal Medicine

== ENCOUNTER 2017-07-28 13:51 | Inpatient (IN) ==
[2017-07-28] MEDS ORDERED: ASPIRIN 325 MG TABLET PO STA (15:13)
[2017-07-28] MEDS ORDERED: SODIUM CHLORIDE 0.9% 1,000 ML IV STA (15:13)
[2017-07-28 15:37] LABS: Basophils # 0.1 10*3/uL (0.0-0.2); Basophils % 0.6 % (0.0-0.8); Eosinophils # 0.3 10*3/uL (0.0-0.87); Eosinophils % 1.9 % (0.00-10.9); Hematocrit 18.1 VOL% (35.7-47.0); Hemoglobin 6.5 GM/DL (12.0-16.0); Immature Granulocytes % 0.6 %; Immature Granulocytes Absolute 0.09 #; Lymphocytes # 7.6 10*3/uL (1.4-4.0); Lymphocytes % 47.6 % (21.3-54.2); Mean Corpuscular HGB Conc 35.9 GM/DL (32-36); Mean Corpuscular Hemoglobin 34 PG (27-34); Mean Corpuscular Volume 94.3 FL (87-102); Mean Platelet Volume 9.9 FL (9.6-12.0); Monocytes # 1.4 10*3/uL (0.11-0.8); Monocytes % 8.9 % (1.7-12.7); NRBC # 0.25 10*3/uL; Neutrophils # 6.5 10*3/uL (1.4-7.4); Neutrophils % 40.4 % (38.7-73.9); Platelet Count 601 T/CUMM (130-400); Red Blood Count 1.92 MC/CUMM (3.8-5.5); Red Cell Distribution Width 18.8 % (9.3-17.3); White Blood Count 16.1 T/CUMM (4-12)
[2017-07-28] MEDS ORDERED: HYDROmorphone 2 MG/1 ML VIAL IV STA ×2 (15:45→16:17)
[2017-07-28] MEDS ORDERED: HYDROmorphone 2 MG/1 ML VIAL ONE ×2 (15:46→16:57)
[2017-07-28 15:54] LABS: Albumin 3.7 G/DL (3.4-5.0); Bilirubin,Total 7.2 MG/DL (0.2-1.0); Calcium 8.9 MG/DL (8.5-10.1); Osmolality,Calculated 273.5 MOS/KG (273-304); Potassium 4.7 MMOL/L (3.5-5.1); Total Protein 8.1 G/DL (6.4-8.3)
[2017-07-28 15:59] LABS: Eosinophils 1 % (0-10); Lymphocytes 49 % (20-55); Nucleated Red Blood Cells 1 (0-5); Segmented Neutrophils 41 % (50-85); Total Cells Counted 100
[2017-07-28 16:00] LABS: Anisocytosis 1+; Hypochromasia 1+; Poikilocytosis 1+; Sickle Cells 2+; Target Cells 1+
[2017-07-28 16:01] LABS: Platelet Estimate Adequate
[2017-07-28] MEDS ORDERED: ONDANSETRON 4 MG/2 ML VIAL IV PRN (16:42)
[2017-07-28] MEDS ORDERED: SODIUM CHLORIDE 0.9% 1,000 ML IV PRN (16:48)
[2017-07-28] MEDS: HYDROmorphone 2 MG/1 ML VIAL IV PRN ×3 (16:57→23:26)
[2017-07-28] MEDS: SODIUM CHLORIDE 0.9% 1,000 ML IV SCH (18:35)
[2017-07-28 22:02] LABS: Apearance,Urine CLEAR (Clear); Bacteria,Urine Occasional /HPF (Few); Bilirubin,Urine Negative (Negative); Blood, Urine Small mg/dL (Negative); Glucose,Urine (UA) Negative (Negative); Ketones,Urine Negative (Negative); Mucus,Urine Occasional /LPF (Occasional); Nitrite,Urine Negative (Negative); Protein,Urine Negative; Squamous Epithelial Cell,Urine Occasional /HPF (0-10); Urine Color Yellow (Yellow); Urine Specific Gravity 1.009 (1.001-1.035)
[2017-07-29] MEDS: HYDROmorphone 2 MG/1 ML VIAL IV PRN ×5 (02:51→20:46)
[2017-07-29 05:21] LABS: Basophils # 0.1 10*3/uL (0.0-0.2); Basophils % 0.4 % (0.0-0.8); Eosinophils # 0.5 10*3/uL (0.0-0.87); Immature Granulocytes % 0.4 %; Immature Granulocytes Absolute 0.08 #; Lymphocytes # 10.4 10*3/uL (1.4-4.0); Lymphocytes % 57.1 % (21.3-54.2); Mean Corpuscular HGB Conc 36.6 GM/DL (32-36); Mean Corpuscular Hemoglobin 34 PG (27-34); Mean Corpuscular Volume 93.7 FL (87-102); Mean Platelet Volume 9.8 FL (9.6-12.0); Monocytes # 1.6 10*3/uL (0.11-0.8); Monocytes % 8.9 % (1.7-12.7); NRBC # 0.24 10*3/uL; Neutrophils # 5.5 10*3/uL (1.4-7.4); Neutrophils % 30.2 % (38.7-73.9); Platelet Count 547 T/CUMM (130-400); Red Blood Count 1.75 MC/CUMM (3.8-5.5); Red Cell Distribution Width 18.6 % (9.3-17.3); White Blood Count 18.1 T/CUMM (4-12)
[2017-07-29] MEDS: SODIUM CHLORIDE 0.9% 1,000 ML IV SCH (05:30)
[2017-07-29 05:58] LABS: Calcium 8.5 MG/DL (8.5-10.1); Potassium 4.8 MMOL/L (3.5-5.1)
[2017-07-29 05:59] LABS: Hematocrit 16.4 VOL% (35.7-47.0)
[2017-07-29 06:10] LABS: Elliptocytes Few; Eosinophils 5 % (0-10); Giant Platelets Few; Howell-Jolly Bodies Slight; Hypochromasia 1+; Lymphocytes 50 % (20-55); Macrocytosis Slight; Nucleated Red Blood Cells 2 (0-5); Pappenheimer Bodies Slight; Platelet Estimate Adequate; Polychromasia Slight; Segmented Neutrophils 36 % (50-85); Sickle Cells 1+; Target Cells Few; Total Cells Counted 100
[2017-07-29] MEDS ORDERED: HYDROmorphone 2 MG/1 ML VIAL IV ONE (07:58)
[2017-07-29] MEDS ORDERED: hydrOXYzine HCL 25 MG TABLET PO PRN (08:21)
[2017-07-29] MEDS: oxyCODONE ER 20 MG TABLET PO SCH ×2 (08:47→20:44)
[2017-07-29] MEDS: HYDROXYUREA 500 MG CAPSULE PO SCH ×2 (08:47→20:44)
[2017-07-29] MEDS: FOLIC ACID 1 MG TABLET PO SCH (08:47)
[2017-07-29] MEDS: POLYETHYLENE GLYCOL POWDER 17 GM PACK PO SCH (08:48)
[2017-07-29] MEDS ORDERED: ACETAMINOPHEN 325 MG TABLET PO ONE (13:49)
[2017-07-29] MEDS ORDERED: hydrOXYzine HCL 25 MG TABLET PO ONE (13:49)
[2017-07-29] MEDS ORDERED: methylPREDNISolone SOD SUC 40 MG/1 ML VIAL IV ONE (13:49)
[2017-07-29] MEDS: oxyCODONE/ACETAMINOPHEN 5-325 MG TABLET PO PRN ×2 (14:19→18:48)
[2017-07-29] MEDS: FLUTICASONE 50 MCG NASAL SPRAY 16 GM BOTTLE BOTH NARES SCH (17:50)
[2017-07-29 23:09] LABS: Hematocrit 27.4 VOL% (35.7-47.0)
[2017-07-29 23:16] LABS: Hemoglobin 9.2 GM/DL (12.0-16.0)
[2017-07-30] MEDS: HYDROmorphone 2 MG/1 ML VIAL IV PRN ×8 (00:49→22:04)
[2017-07-30] MEDS: SODIUM CHLORIDE 0.9% 1,000 ML IV SCH ×2 (00:49→13:02)
[2017-07-30] MEDS ORDERED: FLUTICASONE 50 MCG NASAL SPRAY 16 GM BOTTLE BOTH NARES SCH (09:00)
[2017-07-30] MEDS: oxyCODONE ER 20 MG TABLET PO SCH ×2 (09:17→20:31)
[2017-07-30] MEDS: FOLIC ACID 1 MG TABLET PO SCH (09:17)
[2017-07-30] MEDS: POLYETHYLENE GLYCOL POWDER 17 GM PACK PO SCH (09:17)
[2017-07-30] MEDS: HYDROXYUREA 500 MG CAPSULE PO SCH ×2 (09:17→20:31)
[2017-07-30] MEDS: FLUTICASONE 50 MCG NASAL SPRAY 16 GM BOTTLE BOTH NARES SCH (09:18)
[2017-07-30] MEDS ORDERED: MAGNESIUM CITRATE 300 ML BOTTLE PO ONE (10:45)
[2017-07-30] MEDS ORDERED: BISACODYL 5 MG TABLET PO ONE (10:47)
[2017-07-30] MEDS: oxyCODONE/ACETAMINOPHEN 5-325 MG TABLET PO PRN (12:58)
[2017-07-31] MEDS: oxyCODONE/ACETAMINOPHEN 5-325 MG TABLET PO PRN ×2 (00:36→14:28)
[2017-07-31] MEDS: HYDROmorphone 2 MG/1 ML VIAL IV PRN ×4 (01:32→17:07)
[2017-07-31] MEDS: SODIUM CHLORIDE 0.9% 1,000 ML IV SCH (01:35)
[2017-07-31] MEDS: oxyCODONE ER 20 MG TABLET PO SCH (09:09)
[2017-07-31] MEDS: FOLIC ACID 1 MG TABLET PO SCH (09:09)
[2017-07-31] MEDS: HYDROXYUREA 500 MG CAPSULE PO SCH (09:09)
[2017-07-31] MEDS: POLYETHYLENE GLYCOL POWDER 17 GM PACK PO SCH (09:11)
[2017-07-31] MEDS: FLUTICASONE 50 MCG NASAL SPRAY 16 GM BOTTLE BOTH NARES SCH (09:14)
[2017-07-31 16:18] VITALS: BP 115/76
== END 2017-07-31 17:55 | disposition home or self-care (01) | DRG 811 ==
LOC: N.ED 13:51 → N.EDINP 16:40 → N.4E 18:00
PROVIDERS: ADMIT Internal Medicine; ATTEND Internal Medicine

== ENCOUNTER 2017-08-25 12:03 | Inpatient (IN) ==
[2017-08-25] MEDS ORDERED: SODIUM CHLORIDE 0.9% 1,000 ML IV STA (14:14)
[2017-08-25] MEDS ORDERED: HYDROmorphone 2 MG/1 ML VIAL IV STA (15:04)
[2017-08-25 15:10] LABS: Basophils # 0.1 10*3/uL (0.0-0.2); Basophils % 0.7 % (0.0-0.8); Eosinophils # 0.6 10*3/uL (0.0-0.87); Eosinophils % 3.2 % (0.00-10.9); Hematocrit 19.4 VOL% (35.7-47.0); Hemoglobin 6.7 GM/DL (12.0-16.0); Immature Granulocytes % 0.5 %; Immature Granulocytes Absolute 0.09 #; Lymphocytes # 8.2 10*3/uL (1.4-4.0); Lymphocytes % 41.4 % (21.3-54.2); Mean Corpuscular HGB Conc 34.5 GM/DL (32-36); Mean Corpuscular Hemoglobin 32 PG (27-34); Mean Corpuscular Volume 92.8 FL (87-102); Mean Platelet Volume 10.3 FL (9.6-12.0); Monocytes # 1.9 10*3/uL (0.11-0.8); Monocytes % 9.6 % (1.7-12.7); NRBC # 0.13 10*3/uL; Neutrophils # 8.9 10*3/uL (1.4-7.4); Neutrophils % 44.6 % (38.7-73.9); Platelet Count 537 T/CUMM (130-400); Red Blood Count 2.09 MC/CUMM (3.8-5.5); White Blood Count 19.9 T/CUMM (4-12)
[2017-08-25] MEDS ORDERED: HYDROmorphone 2 MG/1 ML VIAL ONE (15:11)
[2017-08-25 15:24] LABS: Albumin 3.6 G/DL (3.4-5.0); Calcium 8.6 MG/DL (8.5-10.1); Osmolality,Calculated 271.8 MOS/KG (273-304); Potassium 4.1 MMOL/L (3.5-5.1); Total Protein 7.8 G/DL (6.4-8.3)
[2017-08-25 15:32] LABS: Eosinophils 5 % (0-10); Lymphocytes 43 % (20-55); Segmented Neutrophils 47 % (50-85); Total Cells Counted 100
[2017-08-25 15:33] LABS: Hypochromasia 2+; Polychromasia Few; Sickle Cells 2+; Target Cells 1+
[2017-08-25 15:34] LABS: Anisocytosis 1+; Platelet Estimate Adequate; Poikilocytosis 1+; Smudge Cells Few
[2017-08-25] MEDS ORDERED: PROMETHAZINE 25 MG TABLET PO PRN (15:53)
[2017-08-25] MEDS ORDERED: ACETAMINOPHEN 325 MG TABLET PO PRN (15:53)
[2017-08-25] MEDS ORDERED: SODIUM CHLORIDE 0.9% 1,000 ML IV PRN ×2 (15:53→15:55)
[2017-08-25] MEDS ORDERED: POLYETHYLENE GLYCOL POWDER 17 GM PACK PO PRN (15:57)
[2017-08-25] MEDS ORDERED: hydrOXYzine HCL 25 MG TABLET PO PRN (15:57)
[2017-08-25] MEDS ORDERED: oxyCODONE/ACETAMINOPHEN 5-325 MG TABLET PO PRN (15:57)
[2017-08-25] MEDS: HYDROmorphone 2 MG/1 ML VIAL IV PRN (18:04)
[2017-08-25] MEDS: SODIUM CHLORIDE 0.9% 1,000 ML IV SCH (18:09)
[2017-08-25] MEDS ORDERED: METHYLNALTREXONE 12 MG/0.6 ML VIAL SUBCUT ONE (18:30)
[2017-08-25 20:02] LABS: Apearance,Urine Slightly Hazy (Clear); Bacteria,Urine Occasional /HPF (Few); Bilirubin,Urine Negative (Negative); Blood, Urine Small mg/dL (Negative); Glucose,Urine (UA) Negative (Negative); Ketones,Urine Negative (Negative); Mucus,Urine Occasional /LPF (Occasional); Nitrite,Urine Negative (Negative); Protein,Urine Negative; RBC,Urine 1 /HPF (0-4); Squamous Epithelial Cell,Urine Occasional /HPF (0-10); Urine Color Yellow (Yellow); Urine Specific Gravity 1.008 (1.001-1.035); WBC,Urine 5 /HPF (0-6)
[2017-08-25] MEDS: HYDROXYUREA 500 MG CAPSULE PO SCH (20:34)
[2017-08-25] MEDS: oxyCODONE ER 20 MG TABLET PO SCH (20:35)
[2017-08-26] MEDS: HYDROmorphone 2 MG/1 ML VIAL IV PRN ×6 (00:23→23:34)
[2017-08-26] MEDS: SODIUM CHLORIDE 0.9% 1,000 ML IV SCH ×4 (02:19→17:39)
[2017-08-26 05:29] LABS: Basophils # 0.1 10*3/uL (0.0-0.2); Basophils % 0.3 % (0.0-0.8); Eosinophils # 0.2 10*3/uL (0.0-0.87); Eosinophils % 0.8 % (0.00-10.9); Immature Granulocytes % 0.7 %; Immature Granulocytes Absolute 0.19 #; Lymphocytes # 9.1 10*3/uL (1.4-4.0); Lymphocytes % 31.2 % (21.3-54.2); Mean Corpuscular HGB Conc 36.5 GM/DL (32-36); Mean Corpuscular Hemoglobin 33 PG (27-34); Mean Corpuscular Volume 90.7 FL (87-102); Mean Platelet Volume 10.3 FL (9.6-12.0); Monocytes # 2.2 10*3/uL (0.11-0.8); Monocytes % 7.7 % (1.7-12.7); Neutrophils # 17.3 10*3/uL (1.4-7.4); Neutrophils % 59.3 % (38.7-73.9); Platelet Count 422 T/CUMM (130-400); Red Blood Count 1.72 MC/CUMM (3.8-5.5); Red Cell Distribution Width 18.3 % (9.3-17.3); White Blood Count 29.1 T/CUMM (4-12)
[2017-08-26 05:33] LABS: Hemoglobin 5.7 GM/DL (12.0-16.0)
[2017-08-26 05:34] LABS: Hematocrit 15.6 VOL% (35.7-47.0)
[2017-08-26 05:56] LABS: Bilirubin,Total 5.9 MG/DL (0.2-1.0); Calcium 8.6 MG/DL (8.5-10.1); Osmolality,Calculated 272.7 MOS/KG (273-304); Potassium 4.2 MMOL/L (3.5-5.1); Total Protein 6.2 G/DL (6.4-8.3)
[2017-08-26 06:00] LABS: Eosinophils 2 % (0-10); Giant Platelets Few; Lymphocytes 24 % (20-55); Platelet Estimate Adequate; Segmented Neutrophils 69 % (50-85); Sickle Cells 1+; Total Cells Counted 100
[2017-08-26 06:01] LABS: Elliptocytes Few; Howell-Jolly Bodies Few; Hypochromasia 1+; Macrocytosis Slight; Ovalocytes Slight; Pappenheimer Bodies Few; Polychromasia Slight
[2017-08-26] MEDS ORDERED: LINACLOTIDE 145 MCG CAPSULE PO SCH (07:30)
[2017-08-26] MEDS: PANTOPRAZOLE 40 MG TABLET PO SCH (10:09)
[2017-08-26] MEDS: HYDROXYUREA 500 MG CAPSULE PO SCH ×2 (10:09→22:21)
[2017-08-26] MEDS: oxyCODONE ER 20 MG TABLET PO SCH ×2 (10:09→22:19)
[2017-08-26] MEDS ORDERED: ACETAMINOPHEN 325 MG TABLET PO ONE (15:00)
[2017-08-26] MEDS ORDERED: diphenhydrAMINE CAP 25 MG CAPSULE PO ONE (15:00)
[2017-08-26] MEDS ORDERED: METHYLNALTREXONE 12 MG/0.6 ML VIAL SUBCUT ONE (15:45)
[2017-08-26] MEDS ORDERED: methylPREDNISolone SOD SUC 125 MG/2 ML VIAL IV ONE (16:00)
[2017-08-26] MEDS ORDERED: hydrOXYzine HCL 25 MG TABLET PO ONE (16:00)
[2017-08-26] MEDS ORDERED: SODIUM CHLORIDE 0.9% 1,000 ML IV PRN (16:04)
[2017-08-26] MEDS: LACTULOSE 20 GM/30 ML UDCUP PO PRN (17:44)
[2017-08-27] MEDS: HYDROmorphone 2 MG/1 ML VIAL IV PRN ×6 (02:23→20:40)
[2017-08-27] MEDS: SODIUM CHLORIDE 0.9% 1,000 ML IV SCH ×4 (02:36→17:46)
[2017-08-27 06:06] LABS: Hematocrit 25.7 VOL% (35.7-47.0); Hemoglobin 8.8 GM/DL (12.0-16.0)
[2017-08-27 06:08] LABS: Basophils % 0.3 % (0.0-0.8); Hematocrit 25.6 VOL% (35.7-47.0); Hemoglobin 8.8 GM/DL (12.0-16.0); Immature Granulocytes % 0.4 %; Immature Granulocytes Absolute 0.05 #; Lymphocytes % 26.8 % (21.3-54.2); Mean Corpuscular HGB Conc 34.4 GM/DL (32-36); Mean Corpuscular Hemoglobin 31 PG (27-34); Mean Corpuscular Volume 89.5 FL (87-102); Mean Platelet Volume 10.6 FL (9.6-12.0); Monocytes # 0.8 10*3/uL (0.11-0.8); Monocytes % 7.2 % (1.7-12.7); NRBC # 0.05 10*3/uL; Neutrophils # 7.3 10*3/uL (1.4-7.4); Neutrophils % 65.3 % (38.7-73.9); Platelet Count 366 T/CUMM (130-400); Red Blood Count 2.86 MC/CUMM (3.8-5.5); Red Cell Distribution Width 16.8 % (9.3-17.3); White Blood Count 11.2 T/CUMM (4-12)
[2017-08-27 06:33] LABS: Hypochromasia 2+; Macrocytosis 1+; Pappenheimer Bodies Few; Sickle Cells 2+
[2017-08-27 06:34] LABS: Polychromasia Slight
[2017-08-27 06:43] LABS: Albumin 3.1 G/DL (3.4-5.0); Calcium 8.7 MG/DL (8.5-10.1); Osmolality,Calculated 276.5 MOS/KG (273-304); Potassium 4.6 MMOL/L (3.5-5.1); Total Protein 6.6 G/DL (6.4-8.3)
[2017-08-27] MEDS: oxyCODONE ER 20 MG TABLET PO SCH ×2 (09:00→20:37)
[2017-08-27] MEDS: PANTOPRAZOLE 40 MG TABLET PO SCH (09:49)
[2017-08-27] MEDS: HYDROXYUREA 500 MG CAPSULE PO SCH ×2 (09:49→20:35)
[2017-08-27] MEDS: LACTULOSE 20 GM/30 ML UDCUP PO PRN ×2 (09:49→20:35)
[2017-08-27] MEDS ORDERED: LEVALBUTEROL 1.25 MG/3 ML NEB RESP TX ONE (10:17)
[2017-08-27] MEDS ORDERED: methylPREDNISolone SOD SUC 125 MG/2 ML VIAL IV ONE (10:17)
[2017-08-27] MEDS ORDERED: hydrOXYzine HCL 25 MG TABLET PO ONE ×2 (10:38→11:00)
[2017-08-27] MEDS: FLUTICASONE 50 MCG NASAL SPRAY 16 GM BOTTLE BOTH NARES SCH (16:23)
[2017-08-27] MEDS: hydrOXYzine HCL 25 MG TABLET PO SCH ×2 (16:24→20:35)
[2017-08-27] MEDS: methylPREDNISolone SOD SUC 40 MG/1 ML VIAL IV SCH ×2 (16:24→20:35)
[2017-08-27] MEDS ORDERED: hydrOXYzine HCL 25 MG TABLET PO SCH (21:00)
[2017-08-28] MEDS: HYDROmorphone 2 MG/1 ML VIAL IV PRN ×4 (01:20→11:51)
[2017-08-28] MEDS: methylPREDNISolone SOD SUC 40 MG/1 ML VIAL IV SCH ×3 (01:40→14:27)
[2017-08-28] MEDS: SODIUM CHLORIDE 0.9% 1,000 ML IV SCH ×3 (02:22→14:27)
[2017-08-28 06:13] LABS: Hematocrit 23.6 VOL% (35.7-47.0); Hemoglobin 8.2 GM/DL (12.0-16.0); Immature Granulocytes % 0.4 %; Immature Granulocytes Absolute 0.03 #; Lymphocytes # 1.8 10*3/uL (1.4-4.0); Lymphocytes % 23.5 % (21.3-54.2); Mean Corpuscular HGB Conc 34.7 GM/DL (32-36); Mean Corpuscular Hemoglobin 31 PG (27-34); Mean Corpuscular Volume 90.4 FL (87-102); Mean Platelet Volume 10.5 FL (9.6-12.0); Monocytes # 0.2 10*3/uL (0.11-0.8); Monocytes % 2.2 % (1.7-12.7); NRBC # 0.07 10*3/uL; Neutrophils # 5.8 10*3/uL (1.4-7.4); Neutrophils % 73.9 % (38.7-73.9); Platelet Count 386 T/CUMM (130-400); Red Blood Count 2.61 MC/CUMM (3.8-5.5); Red Cell Distribution Width 17.9 % (9.3-17.3); White Blood Count 7.8 T/CUMM (4-12)
[2017-08-28] MEDS: LACTULOSE 20 GM/30 ML UDCUP PO PRN (08:37)
[2017-08-28] MEDS: PANTOPRAZOLE 40 MG TABLET PO SCH (08:38)
[2017-08-28] MEDS: hydrOXYzine HCL 25 MG TABLET PO SCH ×2 (08:38→14:27)
[2017-08-28] MEDS: FLUTICASONE 50 MCG NASAL SPRAY 16 GM BOTTLE BOTH NARES SCH (08:39)
[2017-08-28] MEDS: HYDROXYUREA 500 MG CAPSULE PO SCH (08:43)
[2017-08-28] MEDS: oxyCODONE ER 20 MG TABLET PO SCH (08:48)
[2017-08-28] MEDS ORDERED: FOLIC ACID 1 MG TABLET PO SCH (09:00)
[2017-08-28 12:41] VITALS: BP 120/74
== END 2017-08-28 15:19 | disposition home or self-care (01) | DRG 812 ==
LOC: N.ED 12:03 → N.EDINP 15:51 → SUATTDRO 15:51 → N.TELEN 17:46
PROVIDERS: ADMIT Hospitalist; ATTEND Internal Medicine

== ENCOUNTER 2017-09-25 18:14 | Inpatient (IN) ==
[2017-09-25] MEDS ORDERED: HYDROmorphone 2 MG/1 ML VIAL IV STA (19:31)
[2017-09-25] MEDS ORDERED: SODIUM CHLORIDE 0.9% 1,000 ML IV STA (19:31)
[2017-09-25] MEDS ORDERED: PROMETHAZINE 25 MG/1 ML VIAL IM STA (19:32)
[2017-09-25] MEDS ORDERED: PROMETHAZINE 25 MG/1 ML VIAL ONE (19:39)
[2017-09-25] MEDS ORDERED: HYDROmorphone 2 MG/1 ML VIAL ONE ×3 (19:40→21:36)
[2017-09-25 20:05] LABS: Basophils # 0.2 10*3/uL (0.0-0.2); Basophils % 0.8 % (0.0-0.8); Eosinophils # 0.6 10*3/uL (0.0-0.87); Eosinophils % 2.6 % (0.00-10.9); Hematocrit 18.6 VOL% (35.7-47.0); Hemoglobin 6.8 GM/DL (12.0-16.0); Immature Granulocytes % 0.3 %; Immature Granulocytes Absolute 0.07 #; Lymphocytes # 8.6 10*3/uL (1.4-4.0); Lymphocytes % 39.2 % (21.3-54.2); Mean Corpuscular HGB Conc 36.6 GM/DL (32-36); Mean Corpuscular Hemoglobin 34 PG (27-34); Mean Corpuscular Volume 92.1 FL (87-102); Mean Platelet Volume 9.6 FL (9.6-12.0); Monocytes # 2.3 10*3/uL (0.11-0.8); Monocytes % 10.6 % (1.7-12.7); NRBC # 0.43 10*3/uL; Neutrophils # 10.2 10*3/uL (1.4-7.4); Neutrophils % 46.5 % (38.7-73.9); Platelet Count 484 T/CUMM (130-400); Red Blood Count 2.02 MC/CUMM (3.8-5.5); White Blood Count 21.9 T/CUMM (4-12)
[2017-09-25 20:14] LABS: INR 1.1; PT Patient Result 11.1 SECS
[2017-09-25] MEDS ORDERED: HYDROmorphone 2 MG/1 ML VIAL IV ONE (20:26)
[2017-09-25 20:34] LABS: Albumin 3.6 G/DL (3.4-5.0); Bilirubin,Total 7.1 MG/DL (0.2-1.0); Calcium 8.7 MG/DL (8.5-10.1); Osmolality,Calculated 272.8 MOS/KG (273-304); Potassium 4.5 MMOL/L (3.5-5.1)
[2017-09-25] MEDS ORDERED: ACETAMINOPHEN 325 MG TABLET PO PRN (21:04)
[2017-09-25] MEDS ORDERED: PROMETHAZINE 25 MG/1 ML VIAL IM PRN (21:23)
[2017-09-25 21:24] LABS: Band Neutrophils 1 % (0-10); Eosinophils 3 % (0-10); Lymphocytes 43 % (20-55); Nucleated Red Blood Cells 3 (0-5); Platelet Estimate Increased; Segmented Neutrophils 49 % (50-85); Total Cells Counted 100
[2017-09-25 21:26] LABS: Anisocytosis 2+; Elliptocytes 2+; Howell-Jolly Bodies Few; Hypochromasia 2+; Macrocytosis 1+; Microcytosis 1+; Ovalocytes 1+; Sickle Cells 2+
[2017-09-25 21:27] LABS: Acanthocytes Few; Poikilocytosis 3+; Target Cells Few
[2017-09-25] MEDS: SODIUM CHLORIDE 0.9% 1,000 ML IV SCH (21:32)
[2017-09-25] MEDS ORDERED: hydrOXYzine HCL 25 MG TABLET PO PRN (21:35)
[2017-09-25] MEDS: HYDROmorphone 2 MG/1 ML VIAL IV PRN (21:45)
[2017-09-25] MEDS ORDERED: SODIUM CHLORIDE 0.9% 1,000 ML IV PRN (21:49)
[2017-09-25 22:14] LABS: Apearance,Urine CLEAR (Clear); Bilirubin,Urine Negative (Negative); Blood, Urine Large mg/dL (Negative); Glucose,Urine (UA) Negative (Negative); Ketones,Urine Negative (Negative); Nitrite,Urine Negative (Negative); Protein,Urine Negative; RBC,Urine <1 /HPF (0-4); Squamous Epithelial Cell,Urine Occasional /HPF (0-10); Urine Color Yellow (Yellow); Urine Specific Gravity 1.006 (1.001-1.035); WBC,Urine 1 /HPF (0-6)
[2017-09-25] MEDS: HYDROXYUREA 500 MG CAPSULE PO SCH (22:15)
[2017-09-25 22:20] LABS: Barbiturates Screen,Urine Negative (Negative); Benzodiazepines Screen,Urine Negative (Negative); Cannabinoid Screen,Urine Negative (Negative); Opiate Screen,Urine Positive (Negative); Phencyclidine Screen,Urine Negative (Negative)
[2017-09-26] MEDS: HYDROmorphone 2 MG/1 ML VIAL IV PRN ×8 (00:13→23:50)
[2017-09-26] MEDS: SODIUM CHLORIDE 0.9% 1,000 ML IV SCH ×4 (02:49→23:53)
[2017-09-26 05:13] LABS: Basophils # 0.1 10*3/uL (0.0-0.2); Basophils % 0.6 % (0.0-0.8); Eosinophils # 0.4 10*3/uL (0.0-0.87); Eosinophils % 2.4 % (0.00-10.9); Immature Granulocytes % 0.5 %; Immature Granulocytes Absolute 0.09 #; Lymphocytes # 7.6 10*3/uL (1.4-4.0); Lymphocytes % 41.8 % (21.3-54.2); Mean Corpuscular HGB Conc 35.2 GM/DL (32-36); Mean Corpuscular Hemoglobin 32 PG (27-34); Monocytes # 2.1 10*3/uL (0.11-0.8); Monocytes % 11.3 % (1.7-12.7); NRBC # 0.38 10*3/uL; Neutrophils # 7.9 10*3/uL (1.4-7.4); Neutrophils % 43.4 % (38.7-73.9); Platelet Count 413 T/CUMM (130-400); Red Blood Count 1.76 MC/CUMM (3.8-5.5); White Blood Count 18.2 T/CUMM (4-12)
[2017-09-26 05:17] LABS: Hematocrit 16.2 VOL% (35.7-47.0); Hemoglobin 5.7 GM/DL (12.0-16.0)
[2017-09-26 05:39] LABS: Albumin 3.2 G/DL (3.4-5.0); Bilirubin,Total 7.1 MG/DL (0.2-1.0); Calcium 8.5 MG/DL (8.5-10.1); Osmolality,Calculated 272.7 MOS/KG (273-304); Total Protein 6.3 G/DL (6.4-8.3)
[2017-09-26 05:52] LABS: Eosinophils 1 % (0-10); Lymphocytes 49 % (20-55); Segmented Neutrophils 44 % (50-85); Total Cells Counted 100
[2017-09-26 06:00] LABS: Platelet Estimate Normal; Polychromasia 1+
[2017-09-26 06:01] LABS: Sickle Cells 1+
[2017-09-26 06:02] LABS: Microcytosis 2+; Target Cells Few
[2017-09-26 06:03] LABS: Hypochromasia 2+
[2017-09-26] MEDS: HYDROXYUREA 500 MG CAPSULE PO SCH ×2 (08:47→20:56)
[2017-09-26] MEDS: FOLIC ACID 1 MG TABLET PO SCH (08:47)
[2017-09-26] MEDS: ENOXAPARIN 40 MG/0.4 ML SYRINGE SUBCUT SCH (12:53)
[2017-09-26] MEDS ORDERED: PROMETHAZINE 25 MG TABLET PO PRN (13:09)
[2017-09-26] MEDS: POLYETHYLENE GLYCOL POWDER 17 GM PACK PO PRN (21:02)
[2017-09-26 21:33] LABS: Hematocrit 28.5 VOL% (35.7-47.0); Hemoglobin 10.1 GM/DL (12.0-16.0)
[2017-09-27] MEDS: HYDROmorphone 2 MG/1 ML VIAL IV PRN ×9 (04:13→23:57)
[2017-09-27 05:18] LABS: Albumin 3.1 G/DL (3.4-5.0); Calcium 8.2 MG/DL (8.5-10.1); Osmolality,Calculated 277.3 MOS/KG (273-304); Potassium 4.5 MMOL/L (3.5-5.1); Total Protein 6.5 G/DL (6.4-8.3)
[2017-09-27] MEDS: SODIUM CHLORIDE 0.9% 1,000 ML IV SCH ×3 (07:51→19:45)
[2017-09-27] MEDS: ENOXAPARIN 40 MG/0.4 ML SYRINGE SUBCUT SCH (09:45)
[2017-09-27] MEDS: FOLIC ACID 1 MG TABLET PO SCH (09:45)
[2017-09-27] MEDS: HYDROXYUREA 500 MG CAPSULE PO SCH ×2 (09:45→21:28)
[2017-09-27] MEDS ORDERED: LACTULOSE 20 GM/30 ML UDCUP PO PRN (12:32)
[2017-09-27] MEDS ORDERED: DOCUSATE SODIUM 100 MG CAPSULE PO PRN (12:32)
[2017-09-27 14:13] LABS: Troponin I Only < 0.015 NG/ML (0.00-0.045)
[2017-09-27] MEDS: POLYETHYLENE GLYCOL POWDER 17 GM PACK PO PRN (21:26)
[2017-09-28] MEDS: HYDROmorphone 2 MG/1 ML VIAL IV PRN ×10 (01:42→22:47)
[2017-09-28] MEDS: FOLIC ACID 1 MG TABLET PO SCH (08:26)
[2017-09-28] MEDS: ENOXAPARIN 40 MG/0.4 ML SYRINGE SUBCUT SCH (08:26)
[2017-09-28] MEDS: HYDROXYUREA 500 MG CAPSULE PO SCH ×2 (08:26→20:49)
[2017-09-28] MEDS: SODIUM CHLORIDE 0.9% 1,000 ML IV SCH ×2 (09:40→22:52)
[2017-09-28 10:48] LABS: Basophils # 0.1 10*3/uL (0.0-0.2); Basophils % 0.6 % (0.0-0.8); Eosinophils # 0.4 10*3/uL (0.0-0.87); Eosinophils % 2.2 % (0.00-10.9); Hematocrit 24.3 VOL% (35.7-47.0); Hemoglobin 8.4 GM/DL (12.0-16.0); Immature Granulocytes % 0.4 %; Immature Granulocytes Absolute 0.07 #; Lymphocytes # 4.9 10*3/uL (1.4-4.0); Lymphocytes % 29.1 % (21.3-54.2); Mean Corpuscular HGB Conc 34.6 GM/DL (32-36); Mean Corpuscular Hemoglobin 29 PG (27-34); Mean Corpuscular Volume 82.7 FL (87-102); Mean Platelet Volume 9.9 FL (9.6-12.0); Monocytes # 1.4 10*3/uL (0.11-0.8); NRBC # 0.09 10*3/uL; Neutrophils # 10.1 10*3/uL (1.4-7.4); Neutrophils % 59.7 % (38.7-73.9); Platelet Count 361 T/CUMM (130-400); Red Blood Count 2.94 MC/CUMM (3.8-5.5); Red Cell Distribution Width 20.5 % (9.3-17.3); White Blood Count 16.9 T/CUMM (4-12)
[2017-09-28 10:59] LABS: Eosinophils 1 % (0-10); Giant Platelets Few; Hypochromasia 1+; Lymphocytes 36 % (20-55); Nucleated Red Blood Cells 1 (0-5); Platelet Estimate Adequate; Segmented Neutrophils 54 % (50-85); Sickle Cells 1+; Target Cells Few; Total Cells Counted 100
[2017-09-28 11:00] LABS: Microcytosis 1+
[2017-09-29] MEDS: HYDROmorphone 2 MG/1 ML VIAL IV PRN ×5 (00:29→10:05)
[2017-09-29] MEDS: HYDROXYUREA 500 MG CAPSULE PO SCH ×2 (07:32→08:22)
[2017-09-29] MEDS: ENOXAPARIN 40 MG/0.4 ML SYRINGE SUBCUT SCH ×2 (07:33→08:22)
[2017-09-29] MEDS: FOLIC ACID 1 MG TABLET PO SCH ×2 (07:33→08:25)
[2017-09-29 08:39] VITALS: BP 89/63
[2017-09-29] MEDS: SODIUM CHLORIDE 0.9% 1,000 ML IV SCH (12:34)
== END 2017-09-29 13:00 | disposition home or self-care (01) | DRG 662 ==
LOC: N.ED 18:14 → N.EDINP 20:43 → N.4E 21:45
PROVIDERS: ADMIT Internal Medicine; ATTEND Internal Medicine

== ENCOUNTER 2017-10-29 18:10 | Inpatient (IN) ==
[2017-10-29] MEDS ORDERED: HYDROmorphone 2 MG/1 ML VIAL IV STA (19:55)
[2017-10-29] MEDS ORDERED: PROMETHAZINE 25 MG/1 ML VIAL IM STA (19:56)
[2017-10-29] MEDS ORDERED: SODIUM CHLORIDE 0.9% 1,000 ML IV STA (19:57)
[2017-10-29 20:24] LABS: Basophils # 0.2 10*3/uL (0.0-0.2); Basophils % 0.8 % (0.0-0.8); Eosinophils # 0.5 10*3/uL (0.0-0.87); Eosinophils % 2.1 % (0.00-10.9); Immature Granulocytes % 0.8 %; Lymphocytes # 7.7 10*3/uL (1.4-4.0); Lymphocytes % 30.5 % (21.3-54.2); Mean Corpuscular HGB Conc 35.9 GM/DL (32-36); Mean Corpuscular Hemoglobin 33 PG (27-34); Mean Corpuscular Volume 91.3 FL (87-102); Mean Platelet Volume 10.1 FL (9.6-12.0); Monocytes # 2.9 10*3/uL (0.11-0.8); Monocytes % 11.4 % (1.7-12.7); NRBC # 0.37 10*3/uL; Neutrophils # 13.7 10*3/uL (1.4-7.4); Neutrophils % 54.4 % (38.7-73.9); Platelet Count 426 T/CUMM (130-400); Red Blood Count 1.83 MC/CUMM (3.8-5.5); Red Cell Distribution Width 23.9 % (9.3-17.3); White Blood Count 25.1 T/CUMM (4-12)
[2017-10-29 20:31] LABS: Hematocrit 16.7 VOL% (35.7-47.0)
[2017-10-29 20:50] LABS: Eosinophils 1 % (0-10); Lymphocytes 37 % (20-55); Nucleated Red Blood Cells 2 (0-5); Segmented Neutrophils 60 % (50-85); Total Cells Counted 100
[2017-10-29 20:51] LABS: Howell-Jolly Bodies Few; Hypochromasia 1+; Ovalocytes 2+; Platelet Estimate Adequate; Poikilocytosis 3+; Polychromasia 1+; Sickle Cells Few; Target Cells Few
[2017-10-29 21:23] LABS: Albumin 3.4 G/DL (3.4-5.0); Bilirubin,Total 6.9 MG/DL (0.2-1.0); Calcium 8.5 MG/DL (8.5-10.1); Osmolality,Calculated 277.4 MOS/KG (273-304); Potassium 3.9 MMOL/L (3.5-5.1); Total Protein 7.3 G/DL (6.4-8.3)
[2017-10-29] MEDS ORDERED: MEPERIDINE 50 MG/1 ML VIAL IV STA (21:35)
[2017-10-29] MEDS ORDERED: ZALEPLON 5 MG CAPSULE PO PRN (22:24)
[2017-10-29] MEDS ORDERED: DEXTROSE 5% NACL 0.9% 1,000 ML IV SCH (22:30)
[2017-10-29] MEDS ORDERED: hydrOXYzine HCL 25 MG TABLET PO PRN (23:44)
[2017-10-29] MEDS ORDERED: POLYETHYLENE GLYCOL POWDER 17 GM PACK PO PRN (23:44)
[2017-10-29] MEDS ORDERED: ACETAMINOPHEN 325 MG TABLET PO PRN (23:44)
[2017-10-29] MEDS: IBUPROFEN 800 MG TABLET PO SCH (23:52)
[2017-10-30] MEDS ORDERED: SODIUM CHLORIDE 0.9% 1,000 ML IV PRN ×2 (00:33→06:40)
[2017-10-30] MEDS: SODIUM CHLORIDE 0.9% 1,000 ML IV SCH ×2 (00:51→11:06)
[2017-10-30] MEDS: MEPERIDINE 50 MG/1 ML VIAL IV PRN ×6 (02:35→21:11)
[2017-10-30] MEDS ORDERED: HYDROCORTISONE 100 MG VIAL IV SCH (07:00)
[2017-10-30] MEDS: IBUPROFEN 800 MG TABLET PO SCH ×3 (10:17→21:10)
[2017-10-30] MEDS: HYDROXYUREA 500 MG CAPSULE PO SCH ×3 (10:17→21:10)
[2017-10-30] MEDS: FOLIC ACID 1 MG TABLET PO SCH (10:17)
[2017-10-30] MEDS: ENOXAPARIN 40 MG/0.4 ML SYRINGE SUBCUT SCH (10:18)
[2017-10-30] MEDS: oxyCODONE ER 10 MG TABLET PO PRN (11:17)
[2017-10-30 15:49] LABS: Apearance,Urine CLEAR (Clear); Bacteria,Urine Occasional /HPF (Few); Bilirubin,Urine Negative (Negative); Blood, Urine Small mg/dL (Negative); Glucose,Urine (UA) Negative (Negative); Ketones,Urine Negative (Negative); Nitrite,Urine Negative (Negative); Protein,Urine Negative; RBC,Urine 2 /HPF (0-4); Squamous Epithelial Cell,Urine Occasional /HPF (0-10); Urine Color Yellow (Yellow); Urine Specific Gravity 1.008 (1.001-1.035); Urine Urobilinogen < 2.0 EU/DL (0.2-1.0); WBC,Urine 3 /HPF (0-6)
[2017-10-30] MEDS ORDERED: hydrOXYzine HCL 25 MG TABLET PO STA (20:01)
[2017-10-30] MEDS: oxyCODONE/ACETAMINOPHEN 5-325 MG TABLET PO PRN (21:10)
[2017-10-31] MEDS: MEPERIDINE 50 MG/1 ML VIAL IV PRN ×6 (00:43→20:00)
[2017-10-31] MEDS: oxyCODONE ER 10 MG TABLET PO PRN (00:43)
[2017-10-31] MEDS: oxyCODONE/ACETAMINOPHEN 5-325 MG TABLET PO PRN ×2 (06:10→12:21)
[2017-10-31 06:34] LABS: Calcium 8.4 MG/DL (8.5-10.1); Osmolality,Calculated 277.4 MOS/KG (273-304); Potassium 4.2 MMOL/L (3.5-5.1)
[2017-10-31 07:39] LABS: Basophils # 0.1 10*3/uL (0.0-0.2); Basophils % 0.4 % (0.0-0.8); Immature Granulocytes % 0.7 %; Immature Granulocytes Absolute 0.11 #; Lymphocytes # 2.9 10*3/uL (1.4-4.0); Lymphocytes % 17.6 % (21.3-54.2); Mean Corpuscular HGB Conc 34.4 GM/DL (32-36); Mean Corpuscular Hemoglobin 31 PG (27-34); Mean Corpuscular Volume 90.9 FL (87-102); Mean Platelet Volume 10.1 FL (9.6-12.0); Monocytes # 0.6 10*3/uL (0.11-0.8); Monocytes % 3.7 % (1.7-12.7); Neutrophils % 77.6 % (38.7-73.9); Platelet Count 355 T/CUMM (130-400); Red Cell Distribution Width 21.1 % (9.3-17.3)
[2017-10-31 07:40] LABS: Hemoglobin 8.6 GM/DL (12.0-16.0); Red Blood Count 2.75 MC/CUMM (3.8-5.5); White Blood Count 16.7 T/CUMM (4-12)
[2017-10-31 08:16] LABS: Giant Platelets Few; Hypochromasia 1+; Lymphocytes 19 % (20-55); Nucleated Red Blood Cells 1 (0-5); Segmented Neutrophils 79 % (50-85); Total Cells Counted 100
[2017-10-31 08:17] LABS: Microcytosis 1+
[2017-10-31 08:18] LABS: Polychromasia Few; Target Cells Slight
[2017-10-31 08:19] LABS: Pappenheimer Bodies Few
[2017-10-31 08:20] LABS: Howell-Jolly Bodies Slight; Ovalocytes Slight; Platelet Estimate Normal
[2017-10-31 08:21] LABS: Sickle Cells Few
[2017-10-31] MEDS: FOLIC ACID 1 MG TABLET PO SCH (09:28)
[2017-10-31] MEDS: IBUPROFEN 800 MG TABLET PO SCH ×3 (09:28→20:03)
[2017-10-31] MEDS: HYDROXYUREA 500 MG CAPSULE PO SCH ×3 (09:28→20:03)
[2017-10-31] MEDS: ENOXAPARIN 40 MG/0.4 ML SYRINGE SUBCUT SCH (09:28)
[2017-10-31] MEDS: SODIUM CHLORIDE 0.9% 1,000 ML IV SCH ×3 (11:53→17:41)
[2017-10-31] MEDS: POLYETHYLENE GLYCOL POWDER 17 GM PACK PO SCH (15:34)
[2017-10-31] MEDS: DOCUSATE SODIUM 100 MG CAPSULE PO SCH ×2 (15:35→20:02)
[2017-11-01] MEDS: oxyCODONE/ACETAMINOPHEN 5-325 MG TABLET PO PRN ×2 (00:06→08:35)
[2017-11-01] MEDS: MEPERIDINE 50 MG/1 ML VIAL IV PRN ×4 (00:07→16:58)
[2017-11-01] MEDS: oxyCODONE ER 10 MG TABLET PO PRN ×2 (04:14→15:55)
[2017-11-01 05:45] LABS: Basophils # 0.1 10*3/uL (0.0-0.2); Basophils % 0.9 % (0.0-0.8); Eosinophils # 0.3 10*3/uL (0.0-0.87); Eosinophils % 1.6 % (0.00-10.9); Hemoglobin 7.6 GM/DL (12.0-16.0); Immature Granulocytes % 0.4 %; Immature Granulocytes Absolute 0.07 #; Lymphocytes # 6.1 10*3/uL (1.4-4.0); Lymphocytes % 38.1 % (21.3-54.2); Mean Corpuscular HGB Conc 34.5 GM/DL (32-36); Mean Corpuscular Hemoglobin 30 PG (27-34); Mean Platelet Volume 10.5 FL (9.6-12.0); Monocytes # 1.5 10*3/uL (0.11-0.8); Monocytes % 9.6 % (1.7-12.7); NRBC # 0.21 10*3/uL; Neutrophils # 7.9 10*3/uL (1.4-7.4); Neutrophils % 49.4 % (38.7-73.9); Platelet Count 349 T/CUMM (130-400); Red Cell Distribution Width 20.7 % (9.3-17.3); White Blood Count 15.9 T/CUMM (4-12)
[2017-11-01 06:57] LABS: Albumin 3.1 G/DL (3.4-5.0); Bilirubin,Direct 0.61 MG/DL (0.0-0.20); Bilirubin,Indirect 5.9 MG/DL (0.0-1.0); Bilirubin,Total 6.5 MG/DL (0.2-1.0); Calcium 8.6 MG/DL (8.5-10.1); Potassium 4.1 MMOL/L (3.5-5.1); Total Protein 6.2 G/DL (6.4-8.3)
[2017-11-01] MEDS: FOLIC ACID 1 MG TABLET PO SCH (08:34)
[2017-11-01] MEDS: DOCUSATE SODIUM 100 MG CAPSULE PO SCH ×2 (08:34→21:15)
[2017-11-01] MEDS: IBUPROFEN 800 MG TABLET PO SCH ×3 (08:35→21:16)
[2017-11-01] MEDS: ENOXAPARIN 40 MG/0.4 ML SYRINGE SUBCUT SCH (08:37)
[2017-11-01] MEDS: POLYETHYLENE GLYCOL POWDER 17 GM PACK PO SCH (08:37)
[2017-11-01] MEDS: HYDROXYUREA 500 MG CAPSULE PO SCH ×3 (08:37→21:15)
[2017-11-01] MEDS: SODIUM CHLORIDE 0.9% 1,000 ML IV SCH ×2 (09:02→17:31)
[2017-11-01] MEDS ORDERED: MEPERIDINE 50 MG TABLET PO PRN (10:02)
[2017-11-01] MEDS ORDERED: SODIUM CHLORIDE 0.9% 1,000 ML IV PRN (10:06)
[2017-11-01] MEDS ORDERED: oxyCODONE/ACETAMINOPHEN 5-325 MG TABLET PO PRN (10:21)
[2017-11-01] MEDS: LINACLOTIDE 145 MCG CAPSULE PO SCH (11:45)
[2017-11-01] MEDS: MEPERIDINE 50 MG TABLET PO PRN (11:52)
[2017-11-02] MEDS: SODIUM CHLORIDE 0.9% 1,000 ML IV SCH (01:06)
[2017-11-02] MEDS: MEPERIDINE 50 MG/1 ML VIAL IV PRN (01:06)
[2017-11-02] MEDS: oxyCODONE ER 10 MG TABLET PO PRN (09:13)
[2017-11-02] MEDS: IBUPROFEN 800 MG TABLET PO SCH ×2 (09:15→15:34)
[2017-11-02] MEDS: HYDROXYUREA 500 MG CAPSULE PO SCH ×2 (09:16→15:34)
[2017-11-02] MEDS: DOCUSATE SODIUM 100 MG CAPSULE PO SCH (09:16)
[2017-11-02] MEDS: FOLIC ACID 1 MG TABLET PO SCH (09:20)
[2017-11-02] MEDS: LINACLOTIDE 145 MCG CAPSULE PO SCH (09:20)
[2017-11-02] MEDS: POLYETHYLENE GLYCOL POWDER 17 GM PACK PO SCH (09:22)
[2017-11-02] MEDS: ENOXAPARIN 40 MG/0.4 ML SYRINGE SUBCUT SCH (09:25)
[2017-11-02] MEDS ORDERED: OXYMETAZOLINE 0.05% NASAL SPRAY 15 ML BOTTLE ONE NARE PRN (12:34)
[2017-11-02] MEDS: MEPERIDINE 50 MG TABLET PO PRN (13:44)
[2017-11-02 13:56] LABS: Parvovirus B19 By Rapid PCR Negative; Source PLASMA
[2017-11-02 14:02] VITALS: BP 114/74
== END 2017-11-02 16:20 | disposition home or self-care (01) | DRG 662 ==
LOC: N.ED 18:10 → SUATTDRO 22:23 → N.EDINP 22:23 → N.4E 23:49
PROVIDERS: ADMIT Internal Medicine Infectious Disease

== ENCOUNTER 2017-12-16 09:51 | Inpatient (IN) ==
[2017-12-16 11:19] LABS: Basophils # 0.1 10*3/uL (0.0-0.2); Basophils % 0.2 % (0.0-0.8); Eosinophils # 0.5 10*3/uL (0.0-0.87); Eosinophils % 1.7 % (0.00-10.9); Lymphocytes # 13.3 10*3/uL (1.4-4.0); Lymphocytes % 49.6 % (21.3-54.2); Mean Corpuscular HGB Conc 33.8 GM/DL (32-36); Mean Corpuscular Hemoglobin 31 PG (27-34); Mean Corpuscular Volume 92.9 FL (87-102); Mean Platelet Volume 10.6 FL (9.6-12.0); Monocytes % 18.7 % (1.7-12.7); NRBC # 9.27 10*3/uL; Neutrophils # 7.2 10*3/uL (1.4-7.4); Neutrophils % 26.8 % (38.7-73.9); Platelet Count 608 T/CUMM (130-400); Red Blood Count 1.69 MC/CUMM (3.8-5.5); Red Cell Distribution Width 23.3 % (9.3-17.3); White Blood Count 26.9 T/CUMM (4-12)
[2017-12-16 11:22] LABS: PT Patient Result 10.7 SECS
[2017-12-16 11:26] LABS: Hematocrit 15.7 VOL% (35.7-47.0); Hemoglobin 5.3 GM/DL (12.0-16.0)
[2017-12-16 11:40] LABS: Band Neutrophils 1 % (0-10); Eosinophils 5 % (0-10); Hypochromasia 1+; Lymphocytes 44 % (20-55); Macrocytosis Slight; Nucleated Red Blood Cells 72 (0-5); Platelet Estimate Increased; Polychromasia Slight; Segmented Neutrophils 36 % (50-85); Target Cells Few; Total Cells Counted 100
[2017-12-16 11:41] LABS: Howell-Jolly Bodies Slight; Pappenheimer Bodies Few; Sickle Cells Few
[2017-12-16 11:43] LABS: Albumin 2.7 G/DL (3.4-5.0); Bilirubin,Total 3.5 MG/DL (0.2-1.0); Calcium 8.5 MG/DL (8.5-10.1); Osmolality,Calculated 278.3 MOS/KG (273-304); Potassium 4.5 MMOL/L (3.5-5.1); Total Protein 7.3 G/DL (6.4-8.3)
[2017-12-16 17:33] LABS: Apearance,Urine CLEAR (Clear); Bilirubin,Urine Negative (Negative); Blood, Urine Small mg/dL (Negative); Glucose,Urine (UA) Negative (Negative); Ketones,Urine Negative (Negative); Mucus,Urine Occasional /LPF (Occasional); Nitrite,Urine Negative (Negative); Protein,Urine Negative; RBC,Urine 1 /HPF (0-4); Urine Color Yellow (Yellow); WBC,Urine 1 /HPF (0-6)
[2017-12-16 17:39] LABS: Barbiturates Screen,Urine Negative (Negative); Benzodiazepines Screen,Urine Negative (Negative); Cannabinoid Screen,Urine Negative (Negative); Opiate Screen,Urine Positive (Negative); Phencyclidine Screen,Urine Negative (Negative)
[2017-12-17 02:12] LABS: Basophils # 0.1 10*3/uL (0.0-0.2); Basophils % 0.3 % (0.0-0.8); Eosinophils % 0.3 % (0.00-10.9); Hematocrit 20.7 VOL% (35.7-47.0); Immature Granulocytes % 1.6 %; Immature Granulocytes Absolute 0.24 #; Lymphocytes # 6.8 10*3/uL (1.4-4.0); Lymphocytes % 44.9 % (21.3-54.2); Mean Corpuscular HGB Conc 33.3 GM/DL (32-36); Mean Corpuscular Hemoglobin 31 PG (27-34); Mean Corpuscular Volume 93.2 FL (87-102); Mean Platelet Volume 10.5 FL (9.6-12.0); Monocytes % 6.6 % (1.7-12.7); NRBC # 11.83 10*3/uL; Neutrophils % 46.3 % (38.7-73.9); Platelet Count 525 T/CUMM (130-400); Red Blood Count 2.22 MC/CUMM (3.8-5.5); Red Cell Distribution Width 21.2 % (9.3-17.3); White Blood Count 15.1 T/CUMM (4-12)
[2017-12-17 02:15] LABS: Hemoglobin 6.9 GM/DL (12.0-16.0)
[2017-12-17 02:39] LABS: Calcium 8.5 MG/DL (8.5-10.1); Osmolality,Calculated 278.4 MOS/KG (273-304); Potassium 4.7 MMOL/L (3.5-5.1)
[2017-12-17 02:51] LABS: Anisocytosis 2+; Band Neutrophils 2 % (0-10); Lymphocytes 20 % (20-55); Myelocytes 1 %; Nucleated Red Blood Cells 120 (0-5); Poikilocytosis 2+; Polychromasia 3+; Segmented Neutrophils 76 % (50-85); Total Cells Counted 100
[2017-12-17 02:53] LABS: Sickle Cells Few
[2017-12-17 02:54] LABS: Target Cells 1+
[2017-12-18 05:32] LABS: Basophils % 0.2 % (0.0-0.8); Hematocrit 23.4 VOL% (35.7-47.0); Immature Granulocytes % 0.7 %; Immature Granulocytes Absolute 0.09 #; Lymphocytes # 4.5 10*3/uL (1.4-4.0); Lymphocytes % 34.7 % (21.3-54.2); Mean Corpuscular HGB Conc 34.2 GM/DL (32-36); Mean Corpuscular Hemoglobin 31 PG (27-34); Mean Corpuscular Volume 91.4 FL (87-102); Mean Platelet Volume 10.6 FL (9.6-12.0); Monocytes # 1.7 10*3/uL (0.11-0.8); Monocytes % 12.9 % (1.7-12.7); NRBC # 8.03 10*3/uL; Neutrophils # 6.7 10*3/uL (1.4-7.4); Neutrophils % 51.5 % (38.7-73.9); Platelet Count 551 T/CUMM (130-400); Red Blood Count 2.56 MC/CUMM (3.8-5.5); Red Cell Distribution Width 20.1 % (9.3-17.3); White Blood Count 13.1 T/CUMM (4-12)
[2017-12-18 05:48] LABS: Albumin 2.9 G/DL (3.4-5.0); Bilirubin,Total 3.3 MG/DL (0.2-1.0); Calcium 8.8 MG/DL (8.5-10.1); Osmolality,Calculated 277.4 MOS/KG (273-304); Potassium 4.6 MMOL/L (3.5-5.1)
[2017-12-18 05:58] LABS: Lymphocytes 27 % (20-55); Nucleated Red Blood Cells 97 (0-5); Platelet Estimate Increased; Segmented Neutrophils 60 % (50-85); Total Cells Counted 100
[2017-12-18 05:59] LABS: Elliptocytes Few; Hypochromasia 1+; Macrocytosis Slight; Pappenheimer Bodies Few; Polychromasia Slight; Sickle Cells Few; Target Cells Few
[2017-12-18 06:00] LABS: Howell-Jolly Bodies Slight
[2017-12-19 09:22] LABS: Hematocrit 27.4 VOL% (35.7-47.0); Hemoglobin 9.3 GM/DL (12.0-16.0)
[2017-12-19 12:19] VITALS: BP 95/55
== END 2017-12-19 14:45 | disposition home or self-care (01) | DRG 812 ==
LOC: N.ED 09:51 → N.EDINP 11:14 → SUATTDRO 11:14 → N.4E 11:40
PROVIDERS: ADMIT Hospitalist; ATTEND Internal Medicine

== ENCOUNTER 2018-01-29 13:02 | Inpatient (IN) ==
[2018-01-29] MEDS ORDERED: fentaNYL 100 MCG/2 ML VIAL IV STA ×2 (14:14→14:55)
[2018-01-29] MEDS ORDERED: SODIUM CHLORIDE 0.9% 1,000 ML IV STA (14:14)
[2018-01-29 14:40] LABS: Albumin 3.1 G/DL (3.4-5.0); Bilirubin,Total 10.5 MG/DL (0.2-1.0); Calcium 8.2 MG/DL (8.5-10.1); Osmolality,Calculated 277.4 MOS/KG (273-304); Potassium 4.3 MMOL/L (3.5-5.1); Total Protein 7.4 G/DL (6.4-8.3)
[2018-01-29] MEDS ORDERED: KETOROLAC 30 MG/1 ML VIAL IV STA (14:56)
[2018-01-29 15:01] LABS: Basophils % 0.1 % (0.0-0.8); Eosinophils # 1.7 10*3/uL (0.0-0.87); Eosinophils % 8.1 % (0.00-10.9); Immature Granulocytes % 0.8 %; Immature Granulocytes Absolute 0.17 #; Lymphocytes # 6.5 10*3/uL (1.4-4.0); Mean Corpuscular HGB Conc 33.3 GM/DL (32-36); Mean Corpuscular Hemoglobin 32 PG (27-34); Mean Corpuscular Volume 94.9 FL (87-102); Mean Platelet Volume 10.6 FL (9.6-12.0); Monocytes # 0.8 10*3/uL (0.11-0.8); Monocytes % 3.5 % (1.7-12.7); NRBC # 2.07 10*3/uL; Neutrophils # 12.3 10*3/uL (1.4-7.4); Neutrophils % 57.5 % (38.7-73.9); Platelet Count 370 T/CUMM (130-400); Red Blood Count 1.58 MC/CUMM (3.8-5.5); Red Cell Distribution Width 21.1 % (9.3-17.3); White Blood Count 21.5 T/CUMM (4-12)
[2018-01-29] MEDS ORDERED: KETOROLAC 30 MG/1 ML VIAL ONE (15:05)
[2018-01-29] MEDS ORDERED: SODIUM CHLORIDE 0.9% 1,000 ML IV PRN (15:28)
[2018-01-29 15:30] LABS: Eosinophils 7 % (0-10); Lymphocytes 23 % (20-55); Nucleated Red Blood Cells 17 (0-5); Segmented Neutrophils 64 % (50-85); Total Cells Counted 100
[2018-01-29 15:32] LABS: Anisocytosis 1+; Hypochromasia 1+; Platelet Estimate Adequate; Polychromasia 1+; Schistocytes Few; Sickle Cells 1+; Target Cells 1+
[2018-01-29] MEDS ORDERED: DOCUSATE SODIUM 100 MG CAPSULE PO PRN (15:34)
[2018-01-29] MEDS ORDERED: ACETAMINOPHEN 325 MG TABLET PO PRN (15:34)
[2018-01-29] MEDS ORDERED: ZALEPLON 5 MG CAPSULE PO PRN (15:34)
[2018-01-29] MEDS ORDERED: guaiFENesin/DM ER 600-30 MG TABLET PO PRN (15:34)
[2018-01-29] MEDS ORDERED: PROMETHAZINE 25 MG TABLET PO PRN (15:34)
[2018-01-29] MEDS ORDERED: POLYETHYLENE GLYCOL POWDER 17 GM PACK PO PRN (15:37)
[2018-01-29] MEDS ORDERED: ENOXAPARIN 40 MG/0.4 ML SYRINGE SUBCUT SCH (16:00)
[2018-01-29] MEDS ORDERED: MEPERIDINE 50 MG/1 ML VIAL IV STA (16:12)
[2018-01-29] MEDS ORDERED: MEPERIDINE 25 MG/1 ML VIAL ONE (16:24)
[2018-01-29 16:59] LABS: Lactic Acid 3.1 MMOL/L (0.4-2.0)
[2018-01-29] MEDS: DEXTROSE 5% NACL 0.45% 1,000 ML IV SCH (18:21)
[2018-01-29] MEDS: PIPERACILLIN/TAZOBACTAM 3,375 MG in SODIUM CHLORIDE 0.9% 100 ML IV SCH (18:21)
[2018-01-29 18:46] LABS: Apearance,Urine CLEAR (Clear); Bilirubin,Urine Negative (Negative); Blood, Urine Moderate mg/dL (Negative); Glucose,Urine (UA) Negative (Negative); Ketones,Urine Negative (Negative); Nitrite,Urine Negative (Negative); Protein,Urine Negative; RBC,Urine 3 /HPF (0-4); Squamous Epithelial Cell,Urine Occasional /HPF (0-10); Urine Color Amber (Yellow); Urine Specific Gravity 1.012 (1.001-1.035); WBC,Urine 17 /HPF (0-6)
[2018-01-29 19:05] LABS: Barbiturates Screen,Urine Negative (Negative); Benzodiazepines Screen,Urine Negative (Negative); Cannabinoid Screen,Urine Negative (Negative); Opiate Screen,Urine Positive (Negative); Phencyclidine Screen,Urine Negative (Negative)
[2018-01-29] MEDS: HYDROmorphone 2 MG/1 ML VIAL IV PRN ×2 (19:08→22:40)
[2018-01-29] MEDS: VANCOMYCIN INJ 750 MG in SODIUM CHLORIDE 0.9% 250 ML IV SCH (21:00)
[2018-01-29] MEDS: IBUPROFEN 800 MG TABLET PO SCH (21:40)
[2018-01-29] MEDS: HYDROXYUREA 500 MG CAPSULE PO SCH (22:30)
[2018-01-30] MEDS: DEXTROSE 5% NACL 0.45% 1,000 ML IV SCH ×3 (00:20→23:00)
[2018-01-30] MEDS: HYDROmorphone 2 MG/1 ML VIAL IV PRN ×5 (01:45→22:30)
[2018-01-30] MEDS: PIPERACILLIN/TAZOBACTAM 3,375 MG in SODIUM CHLORIDE 0.9% 100 ML IV SCH (01:47)
[2018-01-30 06:30] LABS: Eosinophils # 2.1 10*3/uL (0.0-0.87); Eosinophils % 8.5 % (0.00-10.9); Immature Granulocytes % 2.1 %; Immature Granulocytes Absolute 0.53 #; Lymphocytes # 8.4 10*3/uL (1.4-4.0); Lymphocytes % 34.1 % (21.3-54.2); Mean Corpuscular HGB Conc 33.6 GM/DL (32-36); Mean Corpuscular Hemoglobin 31 PG (27-34); Mean Platelet Volume 10.3 FL (9.6-12.0); Monocytes # 1.3 10*3/uL (0.11-0.8); Monocytes % 5.1 % (1.7-12.7); NRBC # 2.25 10*3/uL; Neutrophils # 12.4 10*3/uL (1.4-7.4); Neutrophils % 50.2 % (38.7-73.9); Platelet Count 342 T/CUMM (130-400); Red Blood Count 1.28 MC/CUMM (3.8-5.5); Red Cell Distribution Width 20.5 % (9.3-17.3); White Blood Count 24.7 T/CUMM (4-12)
[2018-01-30 06:34] LABS: Hematocrit 11.9 VOL% (35.7-47.0)
[2018-01-30 06:59] LABS: Albumin 2.4 G/DL (3.4-5.0); Bilirubin,Total 8.6 MG/DL (0.2-1.0); Calcium 7.8 MG/DL (8.5-10.1); Osmolality,Calculated 272.7 MOS/KG (273-304); Potassium 3.9 MMOL/L (3.5-5.1); Total Protein 6.3 G/DL (6.4-8.3)
[2018-01-30 07:01] LABS: Band Neutrophils 4 % (0-10); Eosinophils 7 % (0-10); Lymphocytes 26 % (20-55); Nucleated Red Blood Cells 12 (0-5); Platelet Estimate Adequate; Segmented Neutrophils 58 % (50-85); Total Cells Counted 100
[2018-01-30 07:02] LABS: Elliptocytes Few; Hypochromasia 1+; Macrocytosis Slight; Polychromasia Slight; Target Cells Few
[2018-01-30 07:03] LABS: Howell-Jolly Bodies Slight; Pappenheimer Bodies Few; Sickle Cells Few
[2018-01-30 07:04] LABS: Albumin 2.4 G/DL (3.4-5.0); Bilirubin,Direct 1.94 MG/DL (0.0-0.20); Bilirubin,Indirect 6.7 MG/DL (0.0-1.0); Bilirubin,Total 8.6 MG/DL (0.2-1.0); Total Protein 6.2 G/DL (6.4-8.3)
[2018-01-30 08:04] LABS: Hepatitis A Ab IgM Quant 0.26 Index; Hepatitis A Ab IgM Result Negative (Negative); Hepatitis B Core Ab Result Negative (Negative); Hepatitis B Core IgM Quant < 0.05 Index; Hepatitis B Core IgM Result Negative (Negative); Hepatitis B Surface Ab Result Negative; Hepatitis B Surface Ag Quant < 0.10 Index; Hepatitis B Surface Ag Result Negative (Negative); Hepatitis C Virus Ab Quant 0.05 Index; Hepatitis C Virus Ab Result Negative (Negative)
[2018-01-30] MEDS ORDERED: PANTOPRAZOLE 40 MG TABLET PO SCH (09:00)
[2018-01-30] MEDS ORDERED: methylPREDNISolone SOD SUC 40 MG/1 ML VIAL IV ONE (09:10)
[2018-01-30] MEDS ORDERED: ACETAMINOPHEN 325 MG TABLET PO PRN (09:12)
[2018-01-30] MEDS: cefTRIAXone 1,000 MG in SYRINGE 1 EACH IV SCH (10:39)
[2018-01-30] MEDS: VANCOMYCIN INJ 750 MG in SODIUM CHLORIDE 0.9% 250 ML IV SCH (10:44)
[2018-01-30] MEDS ORDERED: oxyCODONE ER 10 MG TABLET PO PRN (11:43)
[2018-01-30] MEDS ORDERED: MAGNESIUM CITRATE 300 ML BOTTLE PO ONE (13:00)
[2018-01-30] MEDS: oxyCODONE/ACETAMINOPHEN 5-325 MG TABLET PO PRN (14:48)
[2018-01-30] MEDS: HYDROXYUREA 500 MG CAPSULE PO SCH ×3 (14:51→21:10)
[2018-01-30] MEDS: FOLIC ACID 1 MG TABLET PO SCH (14:51)
[2018-01-31] MEDS: NAPROXEN 250 MG TABLET PO PRN ×2 (04:38→09:08)
[2018-01-31] MEDS: DEXTROSE 5% NACL 0.45% 1,000 ML IV SCH ×2 (04:39→10:43)
[2018-01-31] MEDS: HYDROmorphone 2 MG/1 ML VIAL IV PRN ×5 (07:00→20:49)
[2018-01-31] MEDS: cefTRIAXone 1,000 MG in SYRINGE 1 EACH IV SCH (08:12)
[2018-01-31] MEDS: FOLIC ACID 1 MG TABLET PO SCH (09:08)
[2018-01-31] MEDS: HYDROXYUREA 500 MG CAPSULE PO SCH ×3 (09:08→21:12)
[2018-01-31 09:18] LABS: Basophils % 0.1 % (0.0-0.8); Eosinophils # 1.8 10*3/uL (0.0-0.87); Eosinophils % 5.9 % (0.00-10.9); Immature Granulocytes % 2.6 %; Immature Granulocytes Absolute 0.77 #; Lymphocytes # 10.4 10*3/uL (1.4-4.0); Lymphocytes % 34.8 % (21.3-54.2); Mean Corpuscular HGB Conc 34.5 GM/DL (32-36); Mean Corpuscular Hemoglobin 33 PG (27-34); Mean Corpuscular Volume 96.7 FL (87-102); Mean Platelet Volume 10.1 FL (9.6-12.0); Monocytes # 2.9 10*3/uL (0.11-0.8); Monocytes % 9.9 % (1.7-12.7); Neutrophils # 13.9 10*3/uL (1.4-7.4); Neutrophils % 46.7 % (38.7-73.9); Platelet Count 427 T/CUMM (130-400); Red Cell Distribution Width 25.9 % (9.3-17.3); White Blood Count 29.8 T/CUMM (4-12)
[2018-01-31 09:32] LABS: Hematocrit 11.6 VOL% (35.7-47.0)
[2018-01-31 09:46] LABS: Band Neutrophils 2 % (0-10); Eosinophils 4 % (0-10); Lymphocytes 30 % (20-55); Nucleated Red Blood Cells 28 (0-5); Segmented Neutrophils 62 % (50-85); Total Cells Counted 100
[2018-01-31 09:47] LABS: Albumin 2.5 G/DL (3.4-5.0); Bilirubin,Total 6.8 MG/DL (0.2-1.0); Calcium 7.6 MG/DL (8.5-10.1); Macrocytosis 1+; Osmolality,Calculated 279.1 MOS/KG (273-304); Polychromasia Few; Potassium 3.8 MMOL/L (3.5-5.1); Target Cells Few; Total Protein 6.9 G/DL (6.4-8.3)
[2018-01-31 09:48] LABS: Hypochromasia 1+; Ovalocytes Few
[2018-01-31 09:49] LABS: Howell-Jolly Bodies Slight; Pappenheimer Bodies Few; Platelet Estimate Increased
[2018-01-31 09:50] LABS: Sickle Cells Few
[2018-01-31] MEDS ORDERED: methylPREDNISolone SOD SUC 40 MG/1 ML VIAL IV ONE (17:30)
[2018-01-31] MEDS: hydrOXYzine HCL 25 MG TABLET PO PRN (18:59)
[2018-02-01] MEDS: DEXTROSE 5% NACL 0.45% 1,000 ML IV SCH ×4 (01:08→18:08)
[2018-02-01] MEDS: HYDROmorphone 2 MG/1 ML VIAL IV PRN ×5 (03:05→20:06)
[2018-02-01] MEDS: FOLIC ACID 1 MG TABLET PO SCH (08:06)
[2018-02-01] MEDS: cefTRIAXone 1,000 MG in SYRINGE 1 EACH IV SCH (08:06)
[2018-02-01] MEDS: HYDROXYUREA 500 MG CAPSULE PO SCH ×3 (08:06→20:06)
[2018-02-01 09:53] LABS: Basophils # 0.1 10*3/uL (0.0-0.2); Basophils % 0.3 % (0.0-0.8); Eosinophils # 0.3 10*3/uL (0.0-0.87); Eosinophils % 1.3 % (0.00-10.9); Immature Granulocytes % 1.8 %; Immature Granulocytes Absolute 0.34 #; Lymphocytes # 8.1 10*3/uL (1.4-4.0); Mean Corpuscular HGB Conc 34.1 GM/DL (32-36); Mean Corpuscular Hemoglobin 33 PG (27-34); Mean Corpuscular Volume 95.7 FL (87-102); Mean Platelet Volume 10.3 FL (9.6-12.0); Monocytes # 1.4 10*3/uL (0.11-0.8); Monocytes % 7.4 % (1.7-12.7); NRBC # 5.64 10*3/uL; Neutrophils # 9.1 10*3/uL (1.4-7.4); Neutrophils % 47.2 % (38.7-73.9); Platelet Count 420 T/CUMM (130-400); Red Blood Count 1.87 MC/CUMM (3.8-5.5); Red Cell Distribution Width 23.6 % (9.3-17.3); White Blood Count 19.3 T/CUMM (4-12)
[2018-02-01 10:03] LABS: Hematocrit 17.9 VOL% (35.7-47.0); Hemoglobin 6.1 GM/DL (12.0-16.0)
[2018-02-01 12:39] LABS: Anisocytosis 3+; Band Neutrophils 12 % (0-10); Eosinophils 3 % (0-10); Lymphocytes 32 % (20-55); Nucleated Red Blood Cells 57 (0-5); Platelet Estimate Normal; Polychromasia 2+; Segmented Neutrophils 49 % (50-85); Total Cells Counted 100
[2018-02-01 12:40] LABS: Macrocytosis 2+; Poikilocytosis 1+; Smudge Cells 1+; Target Cells Few
[2018-02-01] MEDS ORDERED: SODIUM CHLORIDE 0.9% 1,000 ML IV PRN (15:03)
[2018-02-02] MEDS: oxyCODONE/ACETAMINOPHEN 5-325 MG TABLET PO PRN (00:05)
[2018-02-02] MEDS: DEXTROSE 5% NACL 0.45% 1,000 ML IV SCH ×4 (00:31→21:58)
[2018-02-02] MEDS: HYDROmorphone 2 MG/1 ML VIAL IV PRN ×8 (00:56→23:37)
[2018-02-02] MEDS: HYDROXYUREA 500 MG CAPSULE PO SCH ×3 (10:19→21:42)
[2018-02-02] MEDS: cefTRIAXone 1,000 MG in SYRINGE 1 EACH IV SCH (10:19)
[2018-02-02] MEDS: FOLIC ACID 1 MG TABLET PO SCH (10:19)
[2018-02-02 13:34] LABS: Basophils # 0.1 10*3/uL (0.0-0.2); Basophils % 0.3 % (0.0-0.8); Eosinophils # 1.5 10*3/uL (0.0-0.87); Eosinophils % 7.2 % (0.00-10.9); Immature Granulocytes % 0.7 %; Immature Granulocytes Absolute 0.16 #; Lymphocytes # 8.6 10*3/uL (1.4-4.0); Lymphocytes % 40.2 % (21.3-54.2); Mean Corpuscular HGB Conc 34.6 GM/DL (32-36); Mean Corpuscular Hemoglobin 34 PG (27-34); Mean Corpuscular Volume 97.3 FL (87-102); Mean Platelet Volume 10.5 FL (9.6-12.0); Monocytes % 4.7 % (1.7-12.7); NRBC # 7.33 10*3/uL; Neutrophils % 46.9 % (38.7-73.9); Platelet Count 399 T/CUMM (130-400); Red Blood Count 1.84 MC/CUMM (3.8-5.5); Red Cell Distribution Width 24.6 % (9.3-17.3); White Blood Count 21.4 T/CUMM (4-12)
[2018-02-02 13:48] LABS: Hemoglobin 6.2 GM/DL (12.0-16.0)
[2018-02-02 13:49] LABS: Hematocrit 17.9 VOL% (35.7-47.0)
[2018-02-02 14:20] LABS: Anisocytosis 1+; Band Neutrophils 1 % (0-10); Eosinophils 10 % (0-10); Hypochromasia 2+; Lymphocytes 42 % (20-55); Microcytosis 2+; Nucleated Red Blood Cells 50 (0-5); Poikilocytosis 2+; Polychromasia Few; Segmented Neutrophils 43 % (50-85); Target Cells 1+; Total Cells Counted 100
[2018-02-02 14:21] LABS: Elliptocytes Few; Sickle Cells Few
[2018-02-02 14:22] LABS: Howell-Jolly Bodies Slight; Platelet Estimate Adequate
[2018-02-02] MEDS ORDERED: PANTOPRAZOLE 40 MG VIAL IV SCH (16:30)
[2018-02-02] MEDS ORDERED: methylPREDNISolone SOD SUC 125 MG/2 ML VIAL IV ONE (18:16)
[2018-02-02] MEDS ORDERED: methylPREDNISolone SOD SUC 125 MG/2 ML VIAL ONE (18:20)
[2018-02-02] MEDS: hydrOXYzine HCL 25 MG TABLET PO PRN (19:05)
[2018-02-02 19:34] LABS: Apearance,Urine CLEAR (Clear); Bilirubin,Urine Negative (Negative); Blood, Urine Negative (Negative); Glucose,Urine (UA) Negative (Negative); Ketones,Urine Negative (Negative); Nitrite,Urine Negative (Negative); Protein,Urine Negative; RBC,Urine <1 /HPF (0-4); Squamous Epithelial Cell,Urine Occasional /HPF (0-10); Urine Color Yellow (Yellow); Urine Specific Gravity 1.005 (1.001-1.035); WBC,Urine 1 /HPF (0-6)
[2018-02-02] MEDS: NAPROXEN 250 MG TABLET PO SCH (21:42)
[2018-02-02] MEDS: IBUPROFEN 800 MG TABLET PO SCH (22:47)
[2018-02-03] MEDS: HYDROmorphone 2 MG/1 ML VIAL IV PRN ×7 (02:40→23:10)
[2018-02-03] MEDS: DEXTROSE 5% NACL 0.45% 1,000 ML IV SCH ×2 (02:40→13:25)
[2018-02-03 07:55] LABS: Basophils % 0.2 % (0.0-0.8); Eosinophils # 0.1 10*3/uL (0.0-0.87); Eosinophils % 0.6 % (0.00-10.9); Immature Granulocytes % 0.7 %; Immature Granulocytes Absolute 0.12 #; Lymphocytes # 6.9 10*3/uL (1.4-4.0); Lymphocytes % 37.8 % (21.3-54.2); Mean Corpuscular HGB Conc 34.6 GM/DL (32-36); Mean Corpuscular Hemoglobin 34 PG (27-34); Mean Corpuscular Volume 98.2 FL (87-102); Mean Platelet Volume 10.4 FL (9.6-12.0); Monocytes # 1.7 10*3/uL (0.11-0.8); Monocytes % 9.1 % (1.7-12.7); NRBC # 7.25 10*3/uL; Neutrophils # 9.4 10*3/uL (1.4-7.4); Neutrophils % 51.6 % (38.7-73.9); Platelet Count 368 T/CUMM (130-400); Red Blood Count 1.65 MC/CUMM (3.8-5.5); Red Cell Distribution Width 24.7 % (9.3-17.3); White Blood Count 18.2 T/CUMM (4-12)
[2018-02-03 07:57] LABS: Hematocrit 16.2 VOL% (35.7-47.0); Hemoglobin 5.6 GM/DL (12.0-16.0)
[2018-02-03] MEDS: NAPROXEN 250 MG TABLET PO SCH ×2 (08:09→20:21)
[2018-02-03] MEDS: cefTRIAXone 1,000 MG in SYRINGE 1 EACH IV SCH (08:09)
[2018-02-03] MEDS: FOLIC ACID 1 MG TABLET PO SCH (08:09)
[2018-02-03] MEDS: HYDROXYUREA 500 MG CAPSULE PO SCH ×3 (08:09→20:21)
[2018-02-03 08:24] LABS: Eosinophils 4 % (0-10); Lymphocytes 34 % (20-55); Macrocytosis Slight; Nucleated Red Blood Cells 56 (0-5); Platelet Estimate Adequate; Polychromasia Slight; Segmented Neutrophils 56 % (50-85); Sickle Cells Slight; Target Cells Few; Total Cells Counted 100
[2018-02-03 08:25] LABS: Elliptocytes Few; Howell-Jolly Bodies Slight; Hypochromasia Slight; Pappenheimer Bodies Slight
[2018-02-03] MEDS: FAMOTIDINE 20 MG TABLET PO SCH (20:21)
[2018-02-04] MEDS: HYDROmorphone 2 MG/1 ML VIAL IV PRN ×7 (02:21→22:39)
[2018-02-04] MEDS: DEXTROSE 5% NACL 0.45% 1,000 ML IV SCH ×2 (02:25→13:38)
[2018-02-04 07:02] LABS: Basophils % 0.2 % (0.0-0.8); Eosinophils % 5.3 % (0.00-10.9); Immature Granulocytes % 2.3 %; Immature Granulocytes Absolute 0.42 #; Lymphocytes # 6.9 10*3/uL (1.4-4.0); Lymphocytes % 37.8 % (21.3-54.2); Mean Corpuscular HGB Conc 34.4 GM/DL (32-36); Mean Corpuscular Hemoglobin 34 PG (27-34); Mean Corpuscular Volume 98.2 FL (87-102); Mean Platelet Volume 10.7 FL (9.6-12.0); Monocytes # 1.1 10*3/uL (0.11-0.8); NRBC # 7.79 10*3/uL; Neutrophils # 8.8 10*3/uL (1.4-7.4); Neutrophils % 48.4 % (38.7-73.9); Platelet Count 343 T/CUMM (130-400); Red Blood Count 1.63 MC/CUMM (3.8-5.5); Red Cell Distribution Width 25.1 % (9.3-17.3); White Blood Count 18.2 T/CUMM (4-12)
[2018-02-04 07:20] LABS: Hemoglobin 5.5 GM/DL (12.0-16.0)
[2018-02-04 07:34] LABS: Band Neutrophils 1 % (0-10); Eosinophils 7 % (0-10); Lymphocytes 37 % (20-55); Nucleated Red Blood Cells 52 (0-5); Platelet Estimate Adequate; Segmented Neutrophils 52 % (50-85); Total Cells Counted 100
[2018-02-04 07:35] LABS: % Iron Saturation 95.5 % (18-50); Elliptocytes Few; Ferritin 853.8 ng/ml (8-252); Hypochromasia 1+; Macrocytosis Slight; Pappenheimer Bodies Slight; Polychromasia Slight; Sickle Cells Slight; Target Cells Few
[2018-02-04 07:36] LABS: Howell-Jolly Bodies Slight
[2018-02-04 07:42] LABS: Folate 3.9 NG/ML (5.4-24.0); Vitamin B12 659 PG/ML (211-911)
[2018-02-04 08:22] LABS: Sedimentation Rate-Westergren 85 MM/HR (0-20)
[2018-02-04] MEDS: NAPROXEN 250 MG TABLET PO SCH ×2 (08:30→20:33)
[2018-02-04] MEDS: HYDROXYUREA 500 MG CAPSULE PO SCH ×3 (08:30→20:33)
[2018-02-04] MEDS: FOLIC ACID 1 MG TABLET PO SCH ×2 (08:30→09:49)
[2018-02-04] MEDS: FAMOTIDINE 20 MG TABLET PO SCH ×2 (08:30→20:33)
[2018-02-04] MEDS: cefTRIAXone 1,000 MG in SYRINGE 1 EACH IV SCH (08:31)
[2018-02-04] MEDS ORDERED: methylPREDNISolone SOD SUC 40 MG/1 ML VIAL IV ONE (08:46)
[2018-02-04 09:16] LABS: Hemoglobin A2 (Alkaline) 2.6 % (1.5-3.5)
[2018-02-04] MEDS: hydrOXYzine HCL 25 MG TABLET PO PRN (09:49)
[2018-02-04] MEDS ORDERED: ACETAMINOPHEN 500 MG TABLET PO ONE (10:19)
[2018-02-04 10:34] LABS: Hemoglobin S (Alkaline) 52.4 %
[2018-02-04] MEDS: oxyCODONE ER 10 MG TABLET PO SCH ×2 (11:00→20:33)
[2018-02-04 17:00] LABS: Basophils # 0.1 10*3/uL (0.0-0.2); Basophils % 0.5 % (0.0-0.8); Eosinophils # 0.1 10*3/uL (0.0-0.87); Eosinophils % 0.4 % (0.00-10.9); Hematocrit 20.9 VOL% (35.7-47.0); Immature Granulocytes % 1.3 %; Immature Granulocytes Absolute 0.23 #; Lymphocytes # 5.5 10*3/uL (1.4-4.0); Lymphocytes % 30.6 % (21.3-54.2); Mean Corpuscular HGB Conc 33.5 GM/DL (32-36); Mean Corpuscular Hemoglobin 33 PG (27-34); Mean Corpuscular Volume 97.7 FL (87-102); Mean Platelet Volume 10.8 FL (9.6-12.0); Monocytes # 0.3 10*3/uL (0.11-0.8); Monocytes % 1.6 % (1.7-12.7); NRBC # 7.75 10*3/uL; Neutrophils # 11.7 10*3/uL (1.4-7.4); Neutrophils % 65.6 % (38.7-73.9); Platelet Count 375 T/CUMM (130-400); Red Blood Count 2.14 MC/CUMM (3.8-5.5); Red Cell Distribution Width 22.9 % (9.3-17.3); White Blood Count 17.9 T/CUMM (4-12)
[2018-02-04 19:15] LABS: Elliptocytes Few; Lymphocytes 29 % (20-55); Nucleated Red Blood Cells 54 (0-5); Ovalocytes Few; Platelet Estimate Normal; Poikilocytosis 3+; Polychromasia Few; Schistocytes Few; Segmented Neutrophils 71 % (50-85); Sickle Cells Few; Target Cells Few; Total Cells Counted 100
[2018-02-05] MEDS: HYDROmorphone 2 MG/1 ML VIAL IV PRN ×5 (01:39→15:08)
[2018-02-05] MEDS: oxyCODONE ER 10 MG TABLET PO SCH (09:42)
[2018-02-05] MEDS: NAPROXEN 250 MG TABLET PO SCH (09:42)
[2018-02-05] MEDS: HYDROXYUREA 500 MG CAPSULE PO SCH (09:42)
[2018-02-05] MEDS: FAMOTIDINE 20 MG TABLET PO SCH (09:43)
[2018-02-05] MEDS: cefTRIAXone 1,000 MG in SYRINGE 1 EACH IV SCH (09:43)
[2018-02-05] MEDS: FOLIC ACID 1 MG TABLET PO SCH (09:43)
[2018-02-05 11:02] LABS: Basophils # 0.1 10*3/uL (0.0-0.2); Basophils % 0.5 % (0.0-0.8); Eosinophils # 0.7 10*3/uL (0.0-0.87); Eosinophils % 3.8 % (0.00-10.9); Hematocrit 18.4 VOL% (35.7-47.0); Immature Granulocytes % 1.3 %; Immature Granulocytes Absolute 0.22 #; Lymphocytes # 8.2 10*3/uL (1.4-4.0); Lymphocytes % 46.9 % (21.3-54.2); Mean Corpuscular HGB Conc 33.2 GM/DL (32-36); Mean Corpuscular Hemoglobin 33 PG (27-34); Mean Corpuscular Volume 99.5 FL (87-102); Mean Platelet Volume 10.7 FL (9.6-12.0); Monocytes # 0.8 10*3/uL (0.11-0.8); Monocytes % 4.6 % (1.7-12.7); NRBC # 5.22 10*3/uL; Neutrophils # 7.5 10*3/uL (1.4-7.4); Neutrophils % 42.9 % (38.7-73.9); Platelet Count 330 T/CUMM (130-400); Red Blood Count 1.85 MC/CUMM (3.8-5.5); Red Cell Distribution Width 22.9 % (9.3-17.3); White Blood Count 17.4 T/CUMM (4-12)
[2018-02-05 11:06] LABS: Hemoglobin 6.1 GM/DL (12.0-16.0)
[2018-02-05 11:26] LABS: Band Neutrophils 3 % (0-10); Eosinophils 4 % (0-10); Lymphocytes 22 % (20-55); Nucleated Red Blood Cells 32 (0-5); Segmented Neutrophils 56 % (50-85); Total Cells Counted 100
[2018-02-05 11:27] LABS: Polychromasia 1+
[2018-02-05 11:28] LABS: Hypochromasia 2+
[2018-02-05 11:29] LABS: Sickle Cells Few
[2018-02-05 11:30] LABS: Microcytosis Slight
[2018-02-05 11:31] LABS: Platelet Estimate Normal; Target Cells Slight
[2018-02-05 12:00] VITALS: BP 142/81
== END 2018-02-05 16:04 | disposition home or self-care (01) | DRG 812 ==
LOC: N.ED 13:02 → N.EDINP 15:32 → SUATTDRO 15:32 → N.CC 17:44 → N.2E 01-31 14:40
PROVIDERS: ADMIT Internal Medicine; ATTEND Hospitalist

== ENCOUNTER 2018-02-07 11:15 | Inpatient (IN) ==
[2018-02-07 13:05] LABS: Basophils # 0.1 10*3/uL (0.0-0.2); Basophils % 0.3 % (0.0-0.8); Eosinophils # 2.1 10*3/uL (0.0-0.87); Hematocrit 21.3 VOL% (35.7-47.0); Hemoglobin 7.4 GM/DL (12.0-16.0); Immature Granulocytes % 0.7 %; Immature Granulocytes Absolute 0.13 #; Lymphocytes # 7.4 10*3/uL (1.4-4.0); Lymphocytes % 38.6 % (21.3-54.2); Mean Corpuscular HGB Conc 34.7 GM/DL (32-36); Mean Corpuscular Hemoglobin 35 PG (27-34); Mean Platelet Volume 10.8 FL (9.6-12.0); Monocytes # 1.1 10*3/uL (0.11-0.8); Monocytes % 5.5 % (1.7-12.7); NRBC # 7.67 10*3/uL; Neutrophils # 8.4 10*3/uL (1.4-7.4); Neutrophils % 43.9 % (38.7-73.9); Platelet Count 379 T/CUMM (130-400); Red Blood Count 2.13 MC/CUMM (3.8-5.5); Red Cell Distribution Width 26.4 % (9.3-17.3); White Blood Count 19.1 T/CUMM (4-12)
[2018-02-07 14:04] LABS: Band Neutrophils 1 % (0-10); Eosinophils 17 % (0-10); Lymphocytes 27 % (20-55); Nucleated Red Blood Cells 73 (0-5); Segmented Neutrophils 48 % (50-85); Total Cells Counted 100
[2018-02-07 14:05] LABS: Platelet Estimate Normal
[2018-02-07 14:06] LABS: Anisocytosis 2+; Polychromasia 2+; Target Cells Few
[2018-02-07 14:07] LABS: Spherocytes Few
[2018-02-07 14:08] LABS: Sickle Cells Slight
[2018-02-07 14:10] LABS: Stomatocytes Slight
[2018-02-07 14:39] LABS: Apearance,Urine CLEAR (Clear); Bacteria,Urine Occasional /HPF (Few); Bilirubin,Urine Negative (Negative); Blood, Urine Small mg/dL (Negative); Glucose,Urine (UA) Negative (Negative); Ketones,Urine Negative (Negative); Nitrite,Urine Negative (Negative); Protein,Urine Negative; RBC,Urine <1 /HPF (0-4); Squamous Epithelial Cell,Urine Occasional /HPF (0-10); Urine Color Yellow (Yellow); Urine Specific Gravity 1.006 (1.001-1.035); Urine Urobilinogen < 2.0 EU/DL (0.2-1.0); WBC,Urine 3 /HPF (0-6)
[2018-02-07 15:32] LABS: Albumin 2.9 G/DL (3.4-5.0); Bilirubin,Total 4.3 MG/DL (0.2-1.0); Calcium 8.8 MG/DL (8.5-10.1); Osmolality,Calculated 270.7 MOS/KG (273-304); Potassium 4.1 MMOL/L (3.5-5.1); Total Protein 7.4 G/DL (6.4-8.3)
[2018-02-08 05:20] LABS: Basophils # 0.1 10*3/uL (0.0-0.2); Basophils % 0.3 % (0.0-0.8); Eosinophils # 1.4 10*3/uL (0.0-0.87); Eosinophils % 6.3 % (0.00-10.9); Hematocrit 19.8 VOL% (35.7-47.0); Hemoglobin 6.9 GM/DL (12.0-16.0); Immature Granulocytes % 0.9 %; Immature Granulocytes Absolute 0.19 #; Lymphocytes % 31.8 % (21.3-54.2); Mean Corpuscular HGB Conc 34.8 GM/DL (32-36); Mean Corpuscular Hemoglobin 34 PG (27-34); Mean Corpuscular Volume 98.5 FL (87-102); Mean Platelet Volume 10.7 FL (9.6-12.0); Monocytes # 1.1 10*3/uL (0.11-0.8); NRBC # 5.98 10*3/uL; Neutrophils # 12.3 10*3/uL (1.4-7.4); Neutrophils % 55.7 % (38.7-73.9); Platelet Count 355 T/CUMM (130-400); Red Blood Count 2.01 MC/CUMM (3.8-5.5); Red Cell Distribution Width 26.9 % (9.3-17.3); White Blood Count 22.1 T/CUMM (4-12)
[2018-02-08 05:54] LABS: Calcium 8.3 MG/DL (8.5-10.1); Osmolality,Calculated 275.4 MOS/KG (273-304); Potassium 4.2 MMOL/L (3.5-5.1)
[2018-02-08 06:32] LABS: Anisocytosis 1+; Hypochromasia 1+; Macrocytosis 1+; Target Cells Few
[2018-02-08 06:33] LABS: Howell-Jolly Bodies Slight; Ovalocytes Slight; Pappenheimer Bodies Slight; Sickle Cells Slight
[2018-02-08 06:34] LABS: Platelet Estimate Normal
[2018-02-09 11:08] LABS: Albumin 2.6 G/DL (3.4-5.0); Bilirubin,Total 2.5 MG/DL (0.2-1.0); Calcium 7.8 MG/DL (8.5-10.1); Osmolality,Calculated 278.1 MOS/KG (273-304); Potassium 4.4 MMOL/L (3.5-5.1); Total Protein 6.3 G/DL (6.4-8.3)
[2018-02-09 20:09] LABS: Hematocrit 29.9 VOL% (35.7-47.0)
[2018-02-09 20:11] LABS: Hemoglobin 10.5 GM/DL (12.0-16.0)
[2018-02-10 06:44] LABS: Albumin 2.8 G/DL (3.4-5.0); Bilirubin,Total 2.4 MG/DL (0.2-1.0); Calcium 8.6 MG/DL (8.5-10.1); Osmolality,Calculated 279.1 MOS/KG (273-304); Potassium 3.9 MMOL/L (3.5-5.1); Total Protein 6.8 G/DL (6.4-8.3)
[2018-02-10 09:41] LABS: Basophils # 0.2 10*3/uL (0.0-0.2); Eosinophils % 9.5 % (0.00-10.9); Hemoglobin 9.7 GM/DL (12.0-16.0); Immature Granulocytes % 0.6 %; Immature Granulocytes Absolute 0.12 #; Lymphocytes # 5.7 10*3/uL (1.4-4.0); Lymphocytes % 26.7 % (21.3-54.2); Mean Corpuscular HGB Conc 35.9 GM/DL (32-36); Mean Corpuscular Hemoglobin 34 PG (27-34); Mean Corpuscular Volume 95.1 FL (87-102); Mean Platelet Volume 10.4 FL (9.6-12.0); Monocytes # 1.7 10*3/uL (0.11-0.8); Monocytes % 8.1 % (1.7-12.7); NRBC # 0.92 10*3/uL; Neutrophils # 11.5 10*3/uL (1.4-7.4); Neutrophils % 54.1 % (38.7-73.9); Platelet Count 398 T/CUMM (130-400); Red Blood Count 2.84 MC/CUMM (3.8-5.5); Red Cell Distribution Width 22.6 % (9.3-17.3); White Blood Count 21.2 T/CUMM (4-12)
[2018-02-10 10:25] LABS: Eosinophils 7 % (0-10); Hypochromasia 1+; Lymphocytes 22 % (20-55); Nucleated Red Blood Cells 5 (0-5); Segmented Neutrophils 68 % (50-85); Total Cells Counted 100
[2018-02-10 10:26] LABS: Anisocytosis 1+; Macrocytosis 1+; Pappenheimer Bodies Few; Polychromasia Slight; Target Cells Few
[2018-02-10 10:27] LABS: Howell-Jolly Bodies Slight; Ovalocytes Slight; Platelet Estimate Normal; Sickle Cells Slight
[2018-02-10 20:18] LABS: Hematocrit 30.6 VOL% (35.7-47.0); Hemoglobin 10.7 GM/DL (12.0-16.0)
[2018-02-11 06:51] LABS: Basophils # 0.2 10*3/uL (0.0-0.2); Basophils % 0.8 % (0.0-0.8); Hematocrit 32.2 VOL% (35.7-47.0); Hemoglobin 11.2 GM/DL (12.0-16.0); Immature Granulocytes % 0.6 %; Immature Granulocytes Absolute 0.13 #; Lymphocytes # 5.1 10*3/uL (1.4-4.0); Lymphocytes % 23.2 % (21.3-54.2); Mean Corpuscular HGB Conc 34.8 GM/DL (32-36); Mean Corpuscular Hemoglobin 32 PG (27-34); Mean Corpuscular Volume 93.1 FL (87-102); Mean Platelet Volume 10.4 FL (9.6-12.0); Monocytes # 1.2 10*3/uL (0.11-0.8); Monocytes % 5.3 % (1.7-12.7); NRBC # 0.49 10*3/uL; Neutrophils # 13.3 10*3/uL (1.4-7.4); Neutrophils % 61.1 % (38.7-73.9); Platelet Count 376 T/CUMM (130-400); Red Blood Count 3.46 MC/CUMM (3.8-5.5); Red Cell Distribution Width 22.7 % (9.3-17.3); White Blood Count 21.8 T/CUMM (4-12)
[2018-02-11 07:14] LABS: Elliptocytes Few; Eosinophils 8 % (0-10); Howell-Jolly Bodies Few; Hypochromasia 1+; Lymphocytes 16 % (20-55); Nucleated Red Blood Cells 1 (0-5); Platelet Estimate Adequate; Segmented Neutrophils 70 % (50-85); Sickle Cells Slight; Total Cells Counted 100
[2018-02-11 07:15] LABS: Giant Platelets Few; Macrocytosis Slight; Polychromasia Slight; Target Cells Few
[2018-02-11 07:16] LABS: Pappenheimer Bodies Few
[2018-02-11 07:29] LABS: Albumin 3.1 G/DL (3.4-5.0); Bilirubin,Total 4.2 MG/DL (0.2-1.0); Calcium 8.5 MG/DL (8.5-10.1); Osmolality,Calculated 278.1 MOS/KG (273-304); Potassium 3.8 MMOL/L (3.5-5.1); Total Protein 7.2 G/DL (6.4-8.3)
[2018-02-11 11:03] LABS: EBV Nuclear Ag Antibody Positive (Negative); EBV Virus IgG Ab Positive (Negative); EBV Virus IgM Ab Negative (Negative)
[2018-02-11 11:22] VITALS: BP 149/105
== END 2018-02-11 13:37 | disposition home or self-care (01) | DRG 812 ==
LOC: N.ED 11:15 → SUATTDRO 15:05 → N.EDINP 15:05 → N.2E 16:42 → UNDODISIN 02-09 12:45
PROVIDERS: ADMIT Hospitalist; ATTEND Internal Medicine

== ENCOUNTER 2018-04-14 15:53 | Inpatient (IN) ==
[2018-04-14] MEDS ORDERED: PROMETHAZINE 25 MG/1 ML VIAL IM STA (17:51)
[2018-04-14] MEDS ORDERED: HYDROmorphone 2 MG/1 ML VIAL IV ONE ×2 (17:51→19:20)
[2018-04-14] MEDS ORDERED: SODIUM CHLORIDE 0.9% 1,000 ML IV STA (17:51)
[2018-04-14 19:10] LABS: Basophils # 0.1 10*3/uL (0.0-0.2); Basophils % 0.6 % (0.0-0.8); Eosinophils # 0.8 10*3/uL (0.0-0.87); Immature Granulocytes % 0.5 %; Immature Granulocytes Absolute 0.06 #; Lymphocytes # 6.1 10*3/uL (1.4-4.0); Lymphocytes % 46.2 % (21.3-54.2); Mean Corpuscular HGB Conc 33.9 GM/DL (32-36); Mean Corpuscular Hemoglobin 34 PG (27-34); Mean Corpuscular Volume 100.6 FL (87-102); Mean Platelet Volume 10.3 FL (9.6-12.0); Monocytes # 1.4 10*3/uL (0.11-0.8); Monocytes % 10.6 % (1.7-12.7); NRBC # 0.86 10*3/uL; Neutrophils # 4.8 10*3/uL (1.4-7.4); Neutrophils % 36.1 % (38.7-73.9); Platelet Count 474 T/CUMM (130-400); Red Blood Count 1.73 MC/CUMM (3.8-5.5); Red Cell Distribution Width 19.9 % (9.3-17.3); White Blood Count 13.2 T/CUMM (4-12)
[2018-04-14 19:13] LABS: Hematocrit 17.4 VOL% (35.7-47.0); Hemoglobin 5.9 GM/DL (12.0-16.0)
[2018-04-14 19:39] LABS: Albumin 3.2 G/DL (3.4-5.0); Bilirubin,Total 5.2 MG/DL (0.2-1.0); Calcium 8.1 MG/DL (8.5-10.1); Osmolality,Calculated 278.3 MOS/KG (273-304); Potassium 4.2 MMOL/L (3.5-5.1)
[2018-04-14 21:17] LABS: Elliptocytes 1+; Eosinophils 1 % (0-10); Hypochromasia 1+; Lymphocytes 41 % (20-55); Nucleated Red Blood Cells 3 (0-5); Platelet Estimate Normal; Polychromasia 1+; Segmented Neutrophils 49 % (50-85); Sickle Cells 1+; Total Cells Counted 100
[2018-04-14 21:30] LABS: Apearance,Urine Slightly Hazy (Clear); Bilirubin,Urine Negative (Negative); Blood, Urine Negative (Negative); Glucose,Urine (UA) Negative (Negative); Ketones,Urine Negative (Negative); Mucus,Urine Occasional /LPF (Occasional); Nitrite,Urine Negative (Negative); Protein,Urine Negative; RBC,Urine 1 /HPF (0-4); Squamous Epithelial Cell,Urine Occasional /HPF (0-10); Urine Color Yellow (Yellow); Urine Specific Gravity 1.008 (1.001-1.035); WBC,Urine 6 /HPF (0-6)
[2018-04-14] MEDS ORDERED: ACETAMINOPHEN 325 MG TABLET PO PRN (21:41)
[2018-04-14] MEDS ORDERED: traZODone 50 MG TABLET PO PRN (21:41)
[2018-04-14] MEDS ORDERED: OXYCODONE MYRISTATE 9 MG PO PRN (21:41)
[2018-04-14] MEDS ORDERED: PROMETHAZINE 25 MG/1 ML VIAL IM PRN ×2 (21:41)
[2018-04-14] MEDS ORDERED: NAPROXEN 500 MG TABLET PO PRN (21:41)
[2018-04-14] MEDS ORDERED: POLYETHYLENE GLYCOL POWDER 17 GM PACK PO PRN (21:41)
[2018-04-14] MEDS ORDERED: SODIUM CHLORIDE 0.9% 1,000 ML IV PRN (21:41)
[2018-04-14] MEDS ORDERED: oxyCODONE/ACETAMINOPHEN 5-325 MG TABLET PO PRN (21:41)
[2018-04-14] MEDS: SODIUM CHLORIDE 0.9% 1,000 ML IV SCH (22:27)
[2018-04-14] MEDS: HYDROmorphone 2 MG/1 ML VIAL IV PRN (22:33)
[2018-04-15] MEDS: HYDROmorphone 2 MG/1 ML VIAL IV PRN ×10 (01:07→22:31)
[2018-04-15] MEDS: SODIUM CHLORIDE 0.9% 1,000 ML IV SCH ×2 (06:14→14:15)
[2018-04-15 06:18] LABS: Basophils # 0.1 10*3/uL (0.0-0.2); Basophils % 0.4 % (0.0-0.8); Eosinophils # 0.8 10*3/uL (0.0-0.87); Eosinophils % 4.9 % (0.00-10.9); Immature Granulocytes % 0.5 %; Immature Granulocytes Absolute 0.08 #; Lymphocytes # 9.3 10*3/uL (1.4-4.0); Lymphocytes % 58.5 % (21.3-54.2); Mean Corpuscular HGB Conc 34.4 GM/DL (32-36); Mean Corpuscular Hemoglobin 34 PG (27-34); Mean Corpuscular Volume 99.4 FL (87-102); Mean Platelet Volume 10.1 FL (9.6-12.0); Monocytes # 1.6 10*3/uL (0.11-0.8); Monocytes % 10.2 % (1.7-12.7); NRBC # 0.58 10*3/uL; Neutrophils # 4.1 10*3/uL (1.4-7.4); Neutrophils % 25.5 % (38.7-73.9); Platelet Count 428 T/CUMM (130-400); Red Blood Count 1.58 MC/CUMM (3.8-5.5); Red Cell Distribution Width 19.1 % (9.3-17.3); White Blood Count 15.9 T/CUMM (4-12)
[2018-04-15 06:24] LABS: Hematocrit 15.7 VOL% (35.7-47.0); Hemoglobin 5.4 GM/DL (12.0-16.0)
[2018-04-15 06:35] LABS: Albumin 2.8 G/DL (3.4-5.0); Bilirubin,Total 4.9 MG/DL (0.2-1.0); Calcium 8.2 MG/DL (8.5-10.1); Osmolality,Calculated 277.3 MOS/KG (273-304); Potassium 4.1 MMOL/L (3.5-5.1); Total Protein 6.4 G/DL (6.4-8.3)
[2018-04-15 06:45] LABS: Eosinophils 7 % (0-10); Giant Platelets Few; Howell-Jolly Bodies Slight; Hypochromasia 1+; Lymphocytes 56 % (20-55); Macrocytosis Slight; Nucleated Red Blood Cells 3 (0-5); Platelet Estimate Adequate; Polychromasia Slight; Segmented Neutrophils 27 % (50-85); Sickle Cells Few; Target Cells Few; Total Cells Counted 100
[2018-04-15 06:46] LABS: Pappenheimer Bodies Few
[2018-04-15] MEDS: HYDROXYUREA 500 MG CAPSULE PO SCH (08:47)
[2018-04-15] MEDS ORDERED: FOLIC ACID 1 MG TABLET PO SCH (09:00)
[2018-04-15] MEDS ORDERED: methylPREDNISolone SOD SUC 40 MG/1 ML VIAL IV ONE (11:05)
[2018-04-15] MEDS ORDERED: hydrOXYzine HCL 25 MG TABLET PO ONE (11:06)
[2018-04-15] MEDS ORDERED: ACETAMINOPHEN 325 MG TABLET PO ONE (11:07)
[2018-04-15] MEDS: FOLIC ACID 1 MG TABLET PO SCH (22:49)
[2018-04-16] MEDS: HYDROmorphone 2 MG/1 ML VIAL IV PRN ×10 (01:29→23:52)
[2018-04-16] MEDS: SODIUM CHLORIDE 0.9% 1,000 ML IV SCH ×3 (01:32→19:23)
[2018-04-16] MEDS: HYDROXYUREA 500 MG CAPSULE PO SCH (08:20)
[2018-04-16] MEDS: FOLIC ACID 1 MG TABLET PO SCH ×2 (08:21→21:25)
[2018-04-16 10:04] LABS: Basophils # 0.1 10*3/uL (0.0-0.2); Basophils % 0.6 % (0.0-0.8); Eosinophils # 0.1 10*3/uL (0.0-0.87); Hematocrit 23.2 VOL% (35.7-47.0); Immature Granulocytes % 0.4 %; Immature Granulocytes Absolute 0.05 #; Lymphocytes % 49.6 % (21.3-54.2); Mean Corpuscular HGB Conc 34.5 GM/DL (32-36); Mean Corpuscular Hemoglobin 31 PG (27-34); Mean Corpuscular Volume 89.9 FL (87-102); Mean Platelet Volume 9.8 FL (9.6-12.0); Monocytes # 1.3 10*3/uL (0.11-0.8); Monocytes % 9.1 % (1.7-12.7); NRBC # 0.39 10*3/uL; Neutrophils # 5.6 10*3/uL (1.4-7.4); Neutrophils % 39.3 % (38.7-73.9); Platelet Count 436 T/CUMM (130-400); Red Blood Count 2.58 MC/CUMM (3.8-5.5); White Blood Count 14.1 T/CUMM (4-12)
[2018-04-16 10:30] LABS: Atypical Lymphocytes Few; Band Neutrophils 4 % (0-10); Eosinophils 1 % (0-10); Lymphocytes 49 % (20-55); Nucleated Red Blood Cells 1 (0-5); Platelet Estimate Normal; Segmented Neutrophils 40 % (50-85); Total Cells Counted 100
[2018-04-16 10:31] LABS: Anisocytosis 2+; Poikilocytosis 1+; Target Cells Few
[2018-04-16 10:33] LABS: Sickle Cells 1+
[2018-04-16] MEDS ORDERED: TROLAMINE SALICYLATE 10% CREAM 85 GM TUBE TOP PRN (10:49)
[2018-04-16] MEDS: KETOROLAC 15 MG/1 ML VIAL IV SCH (14:26)
[2018-04-17] MEDS: KETOROLAC 15 MG/1 ML VIAL IV SCH (01:41)
[2018-04-17] MEDS: HYDROmorphone 2 MG/1 ML VIAL IV PRN ×9 (01:48→22:50)
[2018-04-17] MEDS: FOLIC ACID 1 MG TABLET PO SCH ×2 (09:14→20:31)
[2018-04-17] MEDS: HYDROXYUREA 500 MG CAPSULE PO SCH (09:14)
[2018-04-17] MEDS: PROMETHAZINE 25 MG TABLET PO PRN ×3 (13:30→22:55)
[2018-04-17] MEDS: KETOROLAC 30 MG/1 ML VIAL IV SCH ×2 (13:32→20:54)
[2018-04-17] MEDS: SODIUM CHLORIDE 0.9% 1,000 ML IV SCH ×2 (13:38→21:20)
[2018-04-18] MEDS: HYDROmorphone 2 MG/1 ML VIAL IV PRN ×4 (02:11→10:43)
[2018-04-18 08:16] VITALS: BP 115/71
[2018-04-18] MEDS: KETOROLAC 30 MG/1 ML VIAL IV SCH (09:19)
[2018-04-18] MEDS: FOLIC ACID 1 MG TABLET PO SCH (09:21)
[2018-04-18] MEDS: HYDROXYUREA 500 MG CAPSULE PO SCH (09:21)
== END 2018-04-18 12:31 | disposition home or self-care (01) | DRG 812 ==
LOC: N.ED 15:53 → N.EDINP 19:49 → N.4E 20:11
PROVIDERS: ADMIT Internal Medicine; ATTEND Internal Medicine

== ENCOUNTER 2018-06-14 21:08 | Inpatient (IN) ==
[2018-06-14] MEDS ORDERED: HYDROmorphone 2 MG/1 ML VIAL IV STA (21:48)
[2018-06-14] MEDS ORDERED: KETOROLAC 30 MG/1 ML VIAL IV STA (21:48)
[2018-06-14] MEDS ORDERED: SODIUM CHLORIDE 0.9% 2,000 ML IV STA (21:48)
[2018-06-14] MEDS ORDERED: PROMETHAZINE INJ 12.5 MG in SODIUM CHLORIDE 0.9% 50 ML IV STA (21:50)
[2018-06-14 22:25] LABS: Basophils # 0.2 10*3/uL (0.0-0.2); Basophils % 0.7 % (0.0-0.8); Eosinophils # 1.5 10*3/uL (0.0-0.87); Eosinophils % 6.6 % (0.00-10.9); Immature Granulocytes % 0.7 %; Immature Granulocytes Absolute 0.15 #; Lymphocytes # 7.1 10*3/uL (1.4-4.0); Mean Corpuscular HGB Conc 35.5 GM/DL (32-36); Mean Corpuscular Hemoglobin 33 PG (27-34); Mean Corpuscular Volume 92.7 FL (87-102); Mean Platelet Volume 10.2 FL (9.6-12.0); Monocytes # 1.7 10*3/uL (0.11-0.8); Monocytes % 7.4 % (1.7-12.7); NRBC # 0.63 10*3/uL; Neutrophils # 12.4 10*3/uL (1.4-7.4); Neutrophils % 53.6 % (38.7-73.9); Platelet Count 488 T/CUMM (130-400); Red Blood Count 1.79 MC/CUMM (3.8-5.5); Red Cell Distribution Width 21.2 % (9.3-17.3); White Blood Count 23.1 T/CUMM (4-12)
[2018-06-14 22:27] LABS: Hemoglobin 5.9 GM/DL (12.0-16.0)
[2018-06-14 22:28] LABS: Hematocrit 16.6 VOL% (35.7-47.0)
[2018-06-14] MEDS ORDERED: ACETAMINOPHEN 500 MG TABLET PO STA (22:30)
[2018-06-14] MEDS ORDERED: ACETAMINOPHEN 500 MG TABLET ONE (22:31)
[2018-06-14 22:44] LABS: Albumin 3.4 G/DL (3.4-5.0); Bilirubin,Total 5.9 MG/DL (0.2-1.0); Calcium 8.7 MG/DL (8.5-10.1); Potassium 4.3 MMOL/L (3.5-5.1); Total Protein 8.5 G/DL (6.4-8.3)
[2018-06-14 22:49] LABS: Eosinophils 6 % (0-10); Lymphocytes 35 % (20-55); Nucleated Red Blood Cells 4 (0-5); Platelet Estimate Increased; Segmented Neutrophils 54 % (50-85); Total Cells Counted 100
[2018-06-14 22:51] LABS: Howell-Jolly Bodies Slight; Hypochromasia 2+; Ovalocytes Few; Polychromasia Few; Sickle Cells Few; Target Cells Few
[2018-06-14 22:53] LABS: Spherocytes Few
[2018-06-14] MEDS ORDERED: cefTRIAXone 1,000 MG in SODIUM CHLORIDE 0.9% 100 ML IV STA (23:17)
[2018-06-14 23:46] LABS: Apearance,Urine Slightly Hazy (Clear); Bilirubin,Urine Negative (Negative); Blood, Urine Negative (Negative); Glucose,Urine (UA) Negative (Negative); Ketones,Urine Negative (Negative); Nitrite,Urine Negative (Negative); Protein,Urine Negative; RBC,Urine <1 /HPF (0-4); Squamous Epithelial Cell,Urine Occasional /HPF (0-10); Urine Color Yellow (Yellow); Urine Specific Gravity 1.008 (1.001-1.035); WBC,Urine 3 /HPF (0-6)
[2018-06-15] MEDS ORDERED: HYDROmorphone 2 MG/1 ML VIAL IV STA (00:01)
[2018-06-15] MEDS ORDERED: NICOTINE 21 MG/24 HR PATCH TRANSDERM PRN (01:40)
[2018-06-15] MEDS ORDERED: SODIUM CHLORIDE 0.9% 1,000 ML IV PRN (01:40)
[2018-06-15] MEDS ORDERED: PROMETHAZINE 25 MG/1 ML VIAL IM PRN (01:40)
[2018-06-15] MEDS ORDERED: POLYETHYLENE GLYCOL POWDER 17 GM PACK PO PRN (02:18)
[2018-06-15] MEDS ORDERED: traZODone 50 MG TABLET PO PRN (02:18)
[2018-06-15] MEDS ORDERED: KETOROLAC 10 MG TABLET PO PRN (02:18)
[2018-06-15] MEDS ORDERED: OXYCODONE MYRISTATE 9 MG PO PRN (02:18)
[2018-06-15] MEDS: SODIUM CHLORIDE 0.9% 1,000 ML IV SCH ×3 (02:53→19:53)
[2018-06-15] MEDS: HYDROmorphone 2 MG/1 ML VIAL IV PRN ×7 (02:58→23:07)
[2018-06-15 06:38] LABS: Basophils % 0.1 % (0.0-0.8); Eosinophils # 1.6 10*3/uL (0.0-0.87); Eosinophils % 8.1 % (0.00-10.9); Immature Granulocytes % 0.5 %; Lymphocytes # 8.9 10*3/uL (1.4-4.0); Lymphocytes % 45.7 % (21.3-54.2); Mean Corpuscular HGB Conc 35.1 GM/DL (32-36); Mean Corpuscular Hemoglobin 33 PG (27-34); Mean Corpuscular Volume 93.6 FL (87-102); Mean Platelet Volume 10.1 FL (9.6-12.0); Monocytes # 1.8 10*3/uL (0.11-0.8); Monocytes % 9.4 % (1.7-12.7); NRBC # 0.36 10*3/uL; Neutrophils % 36.2 % (38.7-73.9); Platelet Count 341 T/CUMM (130-400); Red Cell Distribution Width 21.6 % (9.3-17.3); White Blood Count 19.4 T/CUMM (4-12)
[2018-06-15 06:42] LABS: Hematocrit 13.1 VOL% (35.7-47.0); Hemoglobin 4.6 GM/DL (12.0-16.0)
[2018-06-15 07:08] LABS: Eosinophils 7 % (0-10); Howell-Jolly Bodies Few; Hypochromasia 1+; Lymphocytes 48 % (20-55); Nucleated Red Blood Cells 1 (0-5); Platelet Estimate Adequate; Segmented Neutrophils 38 % (50-85); Sickle Cells 1+; Target Cells Few; Total Cells Counted 100
[2018-06-15 07:09] LABS: Elliptocytes Few; Macrocytosis Slight; Pappenheimer Bodies Few; Polychromasia Slight
[2018-06-15] MEDS: HYDROXYUREA 500 MG CAPSULE PO SCH (08:37)
[2018-06-15] MEDS: FOLIC ACID 1 MG TABLET PO SCH (08:39)
[2018-06-15] MEDS ORDERED: EPOETIN ALFA 2,000 UNIT/1 ML VIAL IV ONE (10:06)
[2018-06-15] MEDS ORDERED: IRON SUCROSE 300 MG in SODIUM CHLORIDE 0.9% 100 ML IV ONE (11:00)
[2018-06-15] MEDS: IBUPROFEN 800 MG TABLET PO PRN ×2 (11:32→18:38)
[2018-06-16] MEDS: cefTRIAXone 1,000 MG in SYRINGE 1 EACH IV SCH (02:20)
[2018-06-16] MEDS: HYDROmorphone 2 MG/1 ML VIAL IV PRN ×9 (02:20→23:59)
[2018-06-16] MEDS: SODIUM CHLORIDE 0.9% 1,000 ML IV SCH ×2 (04:29→16:13)
[2018-06-16] MEDS ORDERED: methylPREDNISolone SOD SUC 125 MG/2 ML VIAL IV ONE (07:53)
[2018-06-16] MEDS ORDERED: ACETAMINOPHEN 325 MG TABLET PO ONE (07:54)
[2018-06-16] MEDS ORDERED: hydrOXYzine HCL 25 MG TABLET PO ONE (07:54)
[2018-06-16] MEDS: FOLIC ACID 1 MG TABLET PO SCH (08:23)
[2018-06-16] MEDS: HYDROXYUREA 500 MG CAPSULE PO SCH (08:23)
[2018-06-16] MEDS ORDERED: EPOETIN ALFA 2,000 UNIT/1 ML VIAL IV ONE (09:00)
[2018-06-16] MEDS ORDERED: IRON SUCROSE 300 MG in SODIUM CHLORIDE 0.9% 100 ML IV ONE (09:00)
[2018-06-16] MEDS ORDERED: oxyCODONE/ACETAMINOPHEN 5-325 MG TABLET PO PRN (09:48)
[2018-06-16 21:11] LABS: Hematocrit 21.8 VOL% (35.7-47.0); Hemoglobin 7.4 GM/DL (12.0-16.0)
[2018-06-16] MEDS: IBUPROFEN 800 MG TABLET PO PRN (22:04)
[2018-06-17] MEDS: HYDROmorphone 2 MG/1 ML VIAL IV PRN ×9 (02:00→19:05)
[2018-06-17] MEDS: SODIUM CHLORIDE 0.9% 1,000 ML IV SCH ×2 (02:22→12:13)
[2018-06-17] MEDS: cefTRIAXone 1,000 MG in SYRINGE 1 EACH IV SCH (03:57)
[2018-06-17] MEDS: HYDROXYUREA 500 MG CAPSULE PO SCH (08:24)
[2018-06-17] MEDS: FOLIC ACID 1 MG TABLET PO SCH (08:59)
[2018-06-17 09:02] LABS: Basophils # 0.1 10*3/uL (0.0-0.2); Basophils % 0.7 % (0.0-0.8); Eosinophils # 0.6 10*3/uL (0.0-0.87); Eosinophils % 3.4 % (0.00-10.9); Hemoglobin 6.7 GM/DL (12.0-16.0); Immature Granulocytes % 0.8 %; Immature Granulocytes Absolute 0.15 #; Lymphocytes # 8.3 10*3/uL (1.4-4.0); Lymphocytes % 45.7 % (21.3-54.2); Mean Corpuscular HGB Conc 33.5 GM/DL (32-36); Mean Corpuscular Hemoglobin 31 PG (27-34); Mean Corpuscular Volume 92.2 FL (87-102); Mean Platelet Volume 10.2 FL (9.6-12.0); Monocytes # 1.6 10*3/uL (0.11-0.8); Monocytes % 8.8 % (1.7-12.7); Neutrophils # 7.4 10*3/uL (1.4-7.4); Neutrophils % 40.6 % (38.7-73.9); Platelet Count 369 T/CUMM (130-400); Red Blood Count 2.17 MC/CUMM (3.8-5.5); Red Cell Distribution Width 19.9 % (9.3-17.3); White Blood Count 18.2 T/CUMM (4-12)
[2018-06-17 09:42] LABS: Elliptocytes Few; Eosinophils 1 % (0-10); Lymphocytes 46 % (20-55); Macrocytosis Slight; Nucleated Red Blood Cells 1 (0-5); Pappenheimer Bodies Few; Platelet Estimate Adequate; Polychromasia Slight; Segmented Neutrophils 48 % (50-85); Sickle Cells 1+; Total Cells Counted 100
[2018-06-17 09:43] LABS: Howell-Jolly Bodies Few; Hypochromasia 1+; Target Cells Few
[2018-06-17] MEDS ORDERED: methylPREDNISolone SOD SUC 125 MG/2 ML VIAL IV PRN (11:56)
[2018-06-17] MEDS: IBUPROFEN 800 MG TABLET PO PRN (20:24)
[2018-06-18] MEDS: ACETAMINOPHEN 325 MG TABLET PO PRN ×2 (00:15→01:30)
[2018-06-18] MEDS: hydrOXYzine HCL 25 MG TABLET PO PRN ×2 (00:16→01:30)
[2018-06-18] MEDS: HYDROmorphone 2 MG/1 ML VIAL IV PRN ×4 (00:35→10:38)
[2018-06-18] MEDS: SODIUM CHLORIDE 0.9% 1,000 ML IV SCH (01:32)
[2018-06-18] MEDS: FOLIC ACID 1 MG TABLET PO SCH (09:33)
[2018-06-18] MEDS: HYDROXYUREA 500 MG CAPSULE PO SCH ×2 (09:33→09:35)
[2018-06-18 10:48] LABS: Basophils # 0.1 10*3/uL (0.0-0.2); Basophils % 0.3 % (0.0-0.8); Eosinophils % 0.1 % (0.00-10.9); Hematocrit 29.7 VOL% (35.7-47.0); Immature Granulocytes % 0.4 %; Immature Granulocytes Absolute 0.08 #; Lymphocytes # 2.6 10*3/uL (1.4-4.0); Lymphocytes % 14.6 % (21.3-54.2); Mean Corpuscular Hemoglobin 31 PG (27-34); Mean Corpuscular Volume 90.3 FL (87-102); Mean Platelet Volume 10.2 FL (9.6-12.0); Monocytes # 0.5 10*3/uL (0.11-0.8); Monocytes % 2.5 % (1.7-12.7); NRBC # 0.68 10*3/uL; Neutrophils # 14.8 10*3/uL (1.4-7.4); Neutrophils % 82.1 % (38.7-73.9); Platelet Count 404 T/CUMM (130-400); Red Cell Distribution Width 18.7 % (9.3-17.3)
[2018-06-18 10:51] LABS: Hemoglobin 10.1 GM/DL (12.0-16.0); Red Blood Count 3.29 MC/CUMM (3.8-5.5)
[2018-06-18 11:03] LABS: Calcium 8.5 MG/DL (8.5-10.1); Osmolality,Calculated 274.7 MOS/KG (273-304)
[2018-06-18 12:43] VITALS: BP 105/58
== END 2018-06-18 13:32 | disposition home or self-care (01) | DRG 812 ==
LOC: N.ED 21:08 → N.EDINP 06-15 01:40 → SUATTDRO 06-15 01:40 → N.2E 06-15 02:05
PROVIDERS: ADMIT Internal Medicine; ATTEND Hospitalist

== ENCOUNTER 2018-07-08 06:48 | Inpatient (IN) ==
[2018-07-08] MEDS ORDERED: SODIUM CHLORIDE 0.9% 1,000 ML IV STA (07:16)
[2018-07-08 07:57] LABS: Basophils # 0.1 10*3/uL (0.0-0.2); Basophils % 0.2 % (0.0-0.8); Eosinophils # 1.3 10*3/uL (0.0-0.87); Eosinophils % 4.3 % (0.00-10.9); Immature Granulocytes % 0.9 %; Immature Granulocytes Absolute 0.26 #; Lymphocytes # 6.1 10*3/uL (1.4-4.0); Lymphocytes % 20.1 % (21.3-54.2); Mean Corpuscular HGB Conc 33.1 GM/DL (32-36); Mean Corpuscular Hemoglobin 30 PG (27-34); Mean Corpuscular Volume 91.3 FL (87-102); Mean Platelet Volume 10.1 FL (9.6-12.0); Monocytes # 2.5 10*3/uL (0.11-0.8); Monocytes % 8.3 % (1.7-12.7); NRBC # 0.14 10*3/uL; Neutrophils % 66.2 % (38.7-73.9); Platelet Count 614 T/CUMM (130-400); Red Blood Count 1.72 MC/CUMM (3.8-5.5); Red Cell Distribution Width 17.8 % (9.3-17.3); White Blood Count 30.2 T/CUMM (4-12)
[2018-07-08 08:02] LABS: Apearance,Urine CLEAR (Clear); Bilirubin,Urine Negative (Negative); Blood, Urine Negative (Negative); Glucose,Urine (UA) Negative (Negative); Hematocrit 15.7 VOL% (35.7-47.0); Hemoglobin 5.2 GM/DL (12.0-16.0); Ketones,Urine Negative (Negative); Nitrite,Urine Negative (Negative); Protein,Urine Negative; Urine Color Amber (Yellow); Urine Specific Gravity 1.014 (1.001-1.035)
[2018-07-08] MEDS ORDERED: fentaNYL 100 MCG/2 ML VIAL IV STA (08:05)
[2018-07-08] MEDS ORDERED: PROMETHAZINE 25 MG/1 ML VIAL IM STA (08:06)
[2018-07-08 08:07] LABS: Eosinophils 2 % (0-10); Hypochromasia 1+; Lymphocytes 16 % (20-55); Platelet Estimate Increased; Segmented Neutrophils 74 % (50-85); Total Cells Counted 100
[2018-07-08 08:08] LABS: Macrocytosis Slight; Ovalocytes Slight; Sickle Cells Slight
[2018-07-08 08:14] LABS: Bacteria,Urine Few /HPF (Few)
[2018-07-08 08:17] LABS: Albumin 2.9 G/DL (3.4-5.0); Bilirubin,Total 3.9 MG/DL (0.2-1.0); Calcium 8.3 MG/DL (8.5-10.1); Total Protein 7.4 G/DL (6.4-8.3)
[2018-07-08] MEDS ORDERED: SODIUM CHLORIDE 0.9% 1,000 ML IV PRN (08:31)
[2018-07-08] MEDS ORDERED: PROMETHAZINE 25 MG/1 ML VIAL IM PRN (08:32)
[2018-07-08] MEDS ORDERED: MAGNESIUM SULF RIDER 4 GM in PREMIX 1 EACH IV PRN (08:36)
[2018-07-08] MEDS ORDERED: MAGNESIUM SULF RIDER 2 GM in PREMIX 1 EACH IV PRN (08:36)
[2018-07-08] MEDS ORDERED: POTASSIUM CHLORIDE RIDER 10 MEQ in PREMIX 1 EACH IV PRN (08:36)
[2018-07-08] MEDS ORDERED: GLUTAMINE 5 GM PO SCH (09:00)
[2018-07-08] MEDS ORDERED: ACETAMINOPHEN 325 MG TABLET PO SCH (09:00)
[2018-07-08] MEDS: FOLIC ACID 1 MG TABLET PO SCH (11:22)
[2018-07-08] MEDS: ENOXAPARIN 40 MG/0.4 ML SYRINGE SUBCUT SCH (11:22)
[2018-07-08] MEDS: METHOCARBAMOL INJ 500 MG in SODIUM CHLORIDE 0.9% 100 ML IV SCH ×2 (11:32→19:26)
[2018-07-08] MEDS: SODIUM CHLORIDE 0.9% 1,000 ML IV SCH ×3 (11:32→23:27)
[2018-07-08] MEDS: oxyCODONE ER 10 MG TABLET PO SCH ×2 (11:37→20:48)
[2018-07-08] MEDS: HYDROmorphone 2 MG/1 ML VIAL IV PRN ×3 (15:58→23:26)
[2018-07-09] MEDS: oxyCODONE/ACETAMINOPHEN 5-325 MG TABLET PO PRN ×2 (01:23→07:12)
[2018-07-09] MEDS: HYDROmorphone 2 MG/1 ML VIAL IV PRN ×4 (03:57→20:23)
[2018-07-09] MEDS: METHOCARBAMOL INJ 500 MG in SODIUM CHLORIDE 0.9% 100 ML IV SCH ×3 (03:58→20:25)
[2018-07-09 04:03] LABS: Basophils # 0.1 10*3/uL (0.0-0.2); Basophils % 0.2 % (0.0-0.8); Eosinophils # 1.6 10*3/uL (0.0-0.87); Immature Granulocytes % 0.9 %; Lymphocytes # 8.8 10*3/uL (1.4-4.0); Lymphocytes % 26.8 % (21.3-54.2); Mean Corpuscular HGB Conc 32.2 GM/DL (32-36); Mean Corpuscular Hemoglobin 30 PG (27-34); Mean Corpuscular Volume 92.3 FL (87-102); Mean Platelet Volume 10.1 FL (9.6-12.0); Monocytes # 2.8 10*3/uL (0.11-0.8); Monocytes % 8.4 % (1.7-12.7); NRBC # 0.16 10*3/uL; Neutrophils # 19.3 10*3/uL (1.4-7.4); Neutrophils % 58.7 % (38.7-73.9); Platelet Count 535 T/CUMM (130-400); Red Blood Count 1.55 MC/CUMM (3.8-5.5); Red Cell Distribution Width 18.5 % (9.3-17.3); White Blood Count 32.9 T/CUMM (4-12)
[2018-07-09 04:08] LABS: Hemoglobin 4.6 GM/DL (12.0-16.0)
[2018-07-09 04:09] LABS: Hematocrit 14.3 VOL% (35.7-47.0)
[2018-07-09 04:22] LABS: Albumin 2.5 G/DL (3.4-5.0); Bilirubin,Total 3.1 MG/DL (0.2-1.0); Calcium 8.1 MG/DL (8.5-10.1); Osmolality,Calculated 279.1 MOS/KG (273-304); Potassium 4.1 MMOL/L (3.5-5.1); Total Protein 6.9 G/DL (6.4-8.3)
[2018-07-09 04:55] LABS: Eosinophils 2 % (0-10); Hypochromasia 1+; Lymphocytes 21 % (20-55); Platelet Estimate Adequate; Segmented Neutrophils 75 % (50-85); Sickle Cells Few; Total Cells Counted 100
[2018-07-09 04:56] LABS: Elliptocytes Few; Howell-Jolly Bodies Slight; Macrocytosis Slight; Polychromasia Slight; Target Cells Few
[2018-07-09] MEDS ORDERED: methylPREDNISolone SOD SUC 40 MG/1 ML VIAL IV ONE (05:33)
[2018-07-09] MEDS ORDERED: hydrOXYzine HCL 10 MG TABLET PO PRN (05:51)
[2018-07-09] MEDS ORDERED: ACETAMINOPHEN 325 MG TABLET PO ONE (06:30)
[2018-07-09] MEDS: FOLIC ACID 1 MG TABLET PO SCH (08:55)
[2018-07-09] MEDS: SODIUM CHLORIDE 0.9% 1,000 ML IV SCH ×3 (08:56→17:38)
[2018-07-09] MEDS: ENOXAPARIN 40 MG/0.4 ML SYRINGE SUBCUT SCH (08:57)
[2018-07-09] MEDS ORDERED: HYDROmorphone 2 MG/1 ML VIAL IV ONE (09:00)
[2018-07-09] MEDS ORDERED: hydrALAZINE 25 MG TABLET PO SCH (09:00)
[2018-07-09] MEDS: oxyCODONE ER 10 MG TABLET PO SCH ×2 (10:12→22:10)
[2018-07-09] MEDS ORDERED: ACETAMINOPHEN 325 MG TABLET PO PRN (13:26)
[2018-07-09] MEDS: oxyCODONE/ACETAMINOPHEN 5-325 MG TABLET PO SCH ×2 (13:34→17:05)
[2018-07-09] MEDS: hydrOXYzine HCL 25 MG TABLET PO PRN (13:34)
[2018-07-09] MEDS: methylPREDNISolone SOD SUC 40 MG/1 ML VIAL IV PRN (13:35)
[2018-07-09 19:39] LABS: Hematocrit 22.7 VOL% (35.7-47.0)
[2018-07-09 19:40] LABS: Hemoglobin 7.4 GM/DL (12.0-16.0)
[2018-07-10] MEDS: HYDROmorphone 2 MG/1 ML VIAL IV PRN ×5 (00:17→21:47)
[2018-07-10] MEDS: oxyCODONE/ACETAMINOPHEN 5-325 MG TABLET PO SCH ×5 (01:59→23:48)
[2018-07-10] MEDS: METHOCARBAMOL INJ 500 MG in SODIUM CHLORIDE 0.9% 100 ML IV SCH (04:12)
[2018-07-10 07:55] LABS: Basophils # 0.1 10*3/uL (0.0-0.2); Basophils % 0.3 % (0.0-0.8); Eosinophils # 0.5 10*3/uL (0.0-0.87); Hematocrit 20.8 VOL% (35.7-47.0); Hemoglobin 6.6 GM/DL (12.0-16.0); Immature Granulocytes % 0.6 %; Immature Granulocytes Absolute 0.15 #; Lymphocytes # 7.5 10*3/uL (1.4-4.0); Lymphocytes % 30.1 % (21.3-54.2); Mean Corpuscular HGB Conc 31.7 GM/DL (32-36); Mean Corpuscular Hemoglobin 28 PG (27-34); Mean Corpuscular Volume 88.1 FL (87-102); Monocytes # 2.2 10*3/uL (0.11-0.8); NRBC # 0.21 10*3/uL; Neutrophils # 14.4 10*3/uL (1.4-7.4); Platelet Count 526 T/CUMM (130-400); Red Blood Count 2.36 MC/CUMM (3.8-5.5); Red Cell Distribution Width 19.2 % (9.3-17.3); White Blood Count 24.8 T/CUMM (4-12)
[2018-07-10 08:15] LABS: Albumin 2.4 G/DL (3.4-5.0); Bilirubin,Total 2.4 MG/DL (0.2-1.0); Calcium 8.2 MG/DL (8.5-10.1); Osmolality,Calculated 276.4 MOS/KG (273-304); Potassium 3.9 MMOL/L (3.5-5.1)
[2018-07-10] MEDS: SODIUM CHLORIDE 0.9% 1,000 ML IV SCH ×3 (08:22→14:39)
[2018-07-10] MEDS: FOLIC ACID 1 MG TABLET PO SCH ×2 (08:23→10:18)
[2018-07-10] MEDS: oxyCODONE ER 10 MG TABLET PO SCH ×3 (08:23→20:27)
[2018-07-10] MEDS: ENOXAPARIN 40 MG/0.4 ML SYRINGE SUBCUT SCH ×2 (08:23→10:18)
[2018-07-10 08:25] LABS: Anisocytosis 2+; Atypical Lymphocytes 1+; Band Neutrophils 3 % (0-10); Lymphocytes 26 % (20-55); Nucleated Red Blood Cells 5 (0-5); Platelet Estimate Increased; Segmented Neutrophils 64 % (50-85); Smudge Cells 1+; Total Cells Counted 100
[2018-07-10 08:26] LABS: Poikilocytosis Slight; Target Cells Few
[2018-07-10] MEDS: KETOROLAC 15 MG/1 ML VIAL IV SCH ×2 (12:46→19:52)
[2018-07-10] MEDS ORDERED: MAGNESIUM HYDROXIDE SUSP 30 ML UDCUP PO ONE (15:53)
[2018-07-10] MEDS ORDERED: BISACODYL 5 MG TABLET PO ONE (15:54)
[2018-07-10] MEDS: LACTULOSE 20 GM/30 ML UDCUP PO PRN (23:49)
[2018-07-11] MEDS: KETOROLAC 15 MG/1 ML VIAL IV SCH ×4 (01:27→20:20)
[2018-07-11] MEDS: SODIUM CHLORIDE 0.9% 1,000 ML IV SCH ×3 (01:30→16:32)
[2018-07-11] MEDS: HYDROmorphone 2 MG/1 ML VIAL IV PRN ×4 (04:56→22:19)
[2018-07-11 05:55] LABS: Basophils # 0.1 10*3/uL (0.0-0.2); Basophils % 0.6 % (0.0-0.8); Eosinophils % 9.3 % (0.00-10.9); Hematocrit 20.6 VOL% (35.7-47.0); Hemoglobin 6.5 GM/DL (12.0-16.0); Immature Granulocytes % 0.8 %; Immature Granulocytes Absolute 0.17 #; Lymphocytes # 9.3 10*3/uL (1.4-4.0); Lymphocytes % 42.9 % (21.3-54.2); Mean Corpuscular HGB Conc 31.6 GM/DL (32-36); Mean Corpuscular Hemoglobin 28 PG (27-34); Mean Corpuscular Volume 88.8 FL (87-102); Mean Platelet Volume 10.2 FL (9.6-12.0); Monocytes # 1.4 10*3/uL (0.11-0.8); Monocytes % 6.3 % (1.7-12.7); NRBC # 0.34 10*3/uL; Neutrophils # 8.7 10*3/uL (1.4-7.4); Neutrophils % 40.1 % (38.7-73.9); Platelet Count 552 T/CUMM (130-400); Red Blood Count 2.32 MC/CUMM (3.8-5.5); Red Cell Distribution Width 19.4 % (9.3-17.3); White Blood Count 21.6 T/CUMM (4-12)
[2018-07-11 06:16] LABS: Albumin 2.4 G/DL (3.4-5.0); Bilirubin,Total 2.4 MG/DL (0.2-1.0); Calcium 8.3 MG/DL (8.5-10.1); Potassium 4.1 MMOL/L (3.5-5.1); Total Protein 6.9 G/DL (6.4-8.3)
[2018-07-11] MEDS: oxyCODONE/ACETAMINOPHEN 5-325 MG TABLET PO SCH ×4 (06:29→23:39)
[2018-07-11 07:00] LABS: Band Neutrophils 3 % (0-10); Eosinophils 8 % (0-10); Lymphocytes 38 % (20-55); Metamyelocytes 4 %; Nucleated Red Blood Cells 14 (0-5); Platelet Estimate Increased; Segmented Neutrophils 41 % (50-85); Target Cells 2+; Total Cells Counted 100
[2018-07-11 07:01] LABS: Acanthocytes Few; Anisocytosis 2+; Elliptocytes 1+; Hypochromasia 2+; Macrocytosis 1+; Microcytosis 1+; Ovalocytes 2+; Sickle Cells 1+
[2018-07-11] MEDS: FOLIC ACID 1 MG TABLET PO SCH (08:38)
[2018-07-11] MEDS: oxyCODONE ER 10 MG TABLET PO SCH ×2 (08:39→20:21)
[2018-07-11] MEDS: LACTULOSE 20 GM/30 ML UDCUP PO PRN (10:45)
[2018-07-11] MEDS ORDERED: SODIUM CHLORIDE 0.9% 1,000 ML IV PRN (10:59)
[2018-07-11] MEDS ORDERED: ACETAMINOPHEN 500 MG TABLET PO PRN (11:01)
[2018-07-12] MEDS: KETOROLAC 15 MG/1 ML VIAL IV SCH ×4 (01:26→21:27)
[2018-07-12] MEDS: SODIUM CHLORIDE 0.9% 1,000 ML IV SCH (01:29)
[2018-07-12] MEDS: HYDROmorphone 2 MG/1 ML VIAL IV PRN ×2 (04:23→18:38)
[2018-07-12] MEDS: oxyCODONE/ACETAMINOPHEN 5-325 MG TABLET PO SCH ×4 (06:08→18:30)
[2018-07-12 06:19] LABS: Basophils # 0.2 10*3/uL (0.0-0.2); Basophils % 0.7 % (0.0-0.8); Eosinophils # 2.3 10*3/uL (0.0-0.87); Eosinophils % 10.4 % (0.00-10.9); Hematocrit 19.1 VOL% (35.7-47.0); Immature Granulocytes % 0.8 %; Immature Granulocytes Absolute 0.17 #; Lymphocytes % 37.3 % (21.3-54.2); Mean Corpuscular HGB Conc 32.5 GM/DL (32-36); Mean Corpuscular Hemoglobin 29 PG (27-34); Mean Corpuscular Volume 89.3 FL (87-102); Monocytes # 1.5 10*3/uL (0.11-0.8); Monocytes % 6.9 % (1.7-12.7); NRBC # 0.21 10*3/uL; Neutrophils # 9.5 10*3/uL (1.4-7.4); Neutrophils % 43.9 % (38.7-73.9); Platelet Count 516 T/CUMM (130-400); Red Blood Count 2.14 MC/CUMM (3.8-5.5); Red Cell Distribution Width 19.4 % (9.3-17.3); White Blood Count 21.6 T/CUMM (4-12)
[2018-07-12 06:22] LABS: Hemoglobin 6.2 GM/DL (12.0-16.0)
[2018-07-12 06:37] LABS: Albumin 2.4 G/DL (3.4-5.0); Bilirubin,Total 1.9 MG/DL (0.2-1.0); Calcium 8.1 MG/DL (8.5-10.1); Osmolality,Calculated 277.3 MOS/KG (273-304); Potassium 3.7 MMOL/L (3.5-5.1); Total Protein 7.1 G/DL (6.4-8.3)
[2018-07-12 07:34] LABS: Eosinophils 7 % (0-10); Lymphocytes 32 % (20-55); Platelet Estimate Adequate; Segmented Neutrophils 52 % (50-85); Total Cells Counted 100
[2018-07-12 07:35] LABS: Hypochromasia 1+; Macrocytosis Slight; Polychromasia Slight; Sickle Cells Few; Target Cells Few
[2018-07-12 07:36] LABS: Howell-Jolly Bodies Slight
[2018-07-12] MEDS: FOLIC ACID 1 MG TABLET PO SCH (08:44)
[2018-07-12] MEDS: oxyCODONE ER 10 MG TABLET PO SCH (08:44)
[2018-07-12] MEDS: hydrOXYzine HCL 25 MG TABLET PO PRN (11:21)
[2018-07-12] MEDS: methylPREDNISolone SOD SUC 40 MG/1 ML VIAL IV PRN (11:22)
[2018-07-12] MEDS ORDERED: oxyCODONE ER 20 MG TABLET PO SCH (11:33)
[2018-07-12] MEDS ORDERED: HYDROmorphone 2 MG/1 ML VIAL IV PRN (11:33)
[2018-07-12] MEDS ORDERED: methylPREDNISolone SOD SUC 40 MG/1 ML VIAL IV ONE (11:41)
[2018-07-12] MEDS: oxyCODONE ER 20 MG TABLET PO SCH (21:27)
[2018-07-13] MEDS: HYDROmorphone 2 MG/1 ML VIAL IV PRN ×2 (00:57→06:22)
[2018-07-13] MEDS: oxyCODONE/ACETAMINOPHEN 5-325 MG TABLET PO SCH ×2 (01:01→06:22)
[2018-07-13 02:13] VITALS: BP 128/78
[2018-07-13] MEDS: KETOROLAC 15 MG/1 ML VIAL IV SCH ×2 (03:00→09:01)
[2018-07-13] MEDS: SODIUM CHLORIDE 0.9% 1,000 ML IV SCH (03:45)
[2018-07-13] MEDS ORDERED: SODIUM CHLORIDE 0.9% 1,000 ML IV PRN (07:49)
[2018-07-13] MEDS ORDERED: ACETAMINOPHEN 325 MG TABLET PO PRN (07:49)
[2018-07-13] MEDS ORDERED: methylPREDNISolone SOD SUC 125 MG/2 ML VIAL IV ONE (07:50)
[2018-07-13] MEDS: LACTULOSE 20 GM/30 ML UDCUP PO PRN (08:18)
[2018-07-13] MEDS: oxyCODONE ER 20 MG TABLET PO SCH (08:18)
[2018-07-13] MEDS: FOLIC ACID 1 MG TABLET PO SCH (08:21)
[2018-07-13 08:28] LABS: Hematocrit 24.9 VOL% (35.7-47.0); Hemoglobin 8.1 GM/DL (12.0-16.0)
== END 2018-07-13 11:37 | disposition home or self-care (01) | DRG 812 ==
LOC: N.ED 06:48 → N.EDINP 08:32 → N.5E 10:39
PROVIDERS: ADMIT Internal Medicine; ATTEND Internal Medicine

== ENCOUNTER 2018-08-30 11:36 | Inpatient (IN) ==
[2018-08-30] MEDS ORDERED: SODIUM CHLORIDE 0.9% 1,000 ML IV STA (13:00)
[2018-08-30 13:04] LABS: Basophils # 0.2 10*3/uL (0.0-0.2); Basophils % 0.8 % (0.0-0.8); Eosinophils # 0.3 10*3/uL (0.0-0.87); Eosinophils % 1.7 % (0.00-10.9); Immature Granulocytes % 0.7 %; Immature Granulocytes Absolute 0.14 #; Lymphocytes # 6.3 10*3/uL (1.4-4.0); Lymphocytes % 31.7 % (21.3-54.2); Mean Corpuscular HGB Conc 34.9 GM/DL (32-36); Mean Corpuscular Hemoglobin 31 PG (27-34); Mean Corpuscular Volume 89.3 FL (87-102); Monocytes # 1.9 10*3/uL (0.11-0.8); Monocytes % 9.3 % (1.7-12.7); NRBC # 0.16 10*3/uL; Neutrophils # 11.1 10*3/uL (1.4-7.4); Neutrophils % 55.8 % (38.7-73.9); Platelet Count 607 T/CUMM (130-400); Red Blood Count 1.96 MC/CUMM (3.8-5.5); Red Cell Distribution Width 22.6 % (9.3-17.3)
[2018-08-30 13:09] LABS: Hematocrit 17.5 VOL% (35.7-47.0); Hemoglobin 6.1 GM/DL (12.0-16.0)
[2018-08-30 13:24] LABS: Albumin 3.5 G/DL (3.4-5.0); Bilirubin,Total 7.3 MG/DL (0.2-1.0); Calcium 8.6 MG/DL (8.5-10.1); Osmolality,Calculated 275.7 MOS/KG (273-304); Total Protein 7.9 G/DL (6.4-8.3)
[2018-08-30] MEDS ORDERED: HYDROmorphone 2 MG/1 ML VIAL IV STA (13:24)
[2018-08-30 14:28] LABS: Apearance,Urine CLEAR (Clear); Bilirubin,Urine Negative (Negative); Blood, Urine Small mg/dL (Negative); Glucose,Urine (UA) Negative (Negative); Hyaline Casts,Urine 9 /LPF (0-3); Ketones,Urine Negative (Negative); Mucus,Urine Occasional /LPF (Occasional); Nitrite,Urine Negative (Negative); Protein,Urine Negative; RBC,Urine 2 /HPF (0-4); Squamous Epithelial Cell,Urine Occasional /HPF (0-10); Urine Color Amber (Yellow); Urine Specific Gravity 1.014 (1.001-1.035); WBC,Urine 2 /HPF (0-6)
[2018-08-30 14:30] LABS: Barbiturates Screen,Urine Negative (Negative); Benzodiazepines Screen,Urine Negative (Negative); Cannabinoid Screen,Urine Positive (Negative); Opiate Screen,Urine Positive (Negative); Phencyclidine Screen,Urine Negative (Negative)
[2018-08-30 14:39] LABS: Hypochromasia 2+; Polychromasia 1+; Sickle Cells 2+; Target Cells 1+
[2018-08-30 14:40] LABS: Ovalocytes 1+; Platelet Estimate Increased; Tear Drop Cells Few
[2018-08-30] MEDS ORDERED: DOCUSATE SODIUM 100 MG CAPSULE PO PRN (14:41)
[2018-08-30] MEDS ORDERED: ACETAMINOPHEN 325 MG TABLET PO PRN (14:41)
[2018-08-30] MEDS ORDERED: SODIUM CHLORIDE 0.9% 1,000 ML IV PRN (14:42)
[2018-08-30] MEDS ORDERED: oxyCODONE IR 5 MG TABLET PO PRN (14:45)
[2018-08-30] MEDS: GLUTAMINE 5 GM PO SCH (15:15)
[2018-08-30] MEDS: SODIUM CHLORIDE 0.9% 1,000 ML IV SCH (15:29)
[2018-08-30 15:51] LABS: Risk Ratio 4.96; Thyroid Stimulating Hormone 0.812 uIU/ml (0.358-3.74)
[2018-08-30] MEDS: HYDROmorphone 2 MG/1 ML VIAL IV PRN ×2 (16:10→20:12)
[2018-08-30] MEDS ORDERED: PROMETHAZINE INJ 12.5 MG in SODIUM CHLORIDE 0.9% 50 ML IV PRN (16:39)
[2018-08-30] MEDS ORDERED: oxyCODONE ER 20 MG TABLET PO SCH (21:00)
[2018-08-30] MEDS: ENOXAPARIN 40 MG/0.4 ML SYRINGE SUBCUT SCH (21:19)
[2018-08-31] MEDS: HYDROmorphone 2 MG/1 ML VIAL IV PRN ×5 (00:50→22:07)
[2018-08-31] MEDS: GLUTAMINE 5 GM PO SCH ×4 (00:53→22:57)
[2018-08-31] MEDS: SODIUM CHLORIDE 0.9% 1,000 ML IV SCH ×5 (00:54→20:56)
[2018-08-31 04:38] LABS: Basophils # 0.2 10*3/uL (0.0-0.2); Basophils % 0.7 % (0.0-0.8); Eosinophils # 0.7 10*3/uL (0.0-0.87); Eosinophils % 2.3 % (0.00-10.9); Immature Granulocytes % 1.5 %; Immature Granulocytes Absolute 0.47 #; Lymphocytes # 12.7 10*3/uL (1.4-4.0); Lymphocytes % 40.7 % (21.3-54.2); Mean Corpuscular HGB Conc 33.3 GM/DL (32-36); Mean Corpuscular Hemoglobin 31 PG (27-34); Mean Corpuscular Volume 92.1 FL (87-102); Mean Platelet Volume 10.8 FL (9.6-12.0); Monocytes # 2.6 10*3/uL (0.11-0.8); Monocytes % 8.3 % (1.7-12.7); NRBC # 0.25 10*3/uL; Neutrophils # 14.4 10*3/uL (1.4-7.4); Neutrophils % 46.5 % (38.7-73.9); Platelet Count 460 T/CUMM (130-400); Red Blood Count 1.89 MC/CUMM (3.8-5.5); Red Cell Distribution Width 23.1 % (9.3-17.3); White Blood Count 31.1 T/CUMM (4-12)
[2018-08-31 04:46] LABS: Hematocrit 17.4 VOL% (35.7-47.0); Hemoglobin 5.8 GM/DL (12.0-16.0)
[2018-08-31 05:07] LABS: Albumin 3.1 G/DL (3.4-5.0); Bilirubin,Total 6.3 MG/DL (0.2-1.0); Osmolality,Calculated 275.4 MOS/KG (273-304); Potassium 4.3 MMOL/L (3.5-5.1); Total Protein 6.7 G/DL (6.4-8.3)
[2018-08-31 06:11] LABS: Eosinophils 5 % (0-10); Lymphocytes 52 % (20-55); Metamyelocytes 1 %; Myelocytes 1 %; Segmented Neutrophils 39 % (50-85); Total Cells Counted 100
[2018-08-31 06:13] LABS: Anisocytosis 3+; Hypochromasia 2+; Ovalocytes 2+; Sickle Cells 1+; Target Cells 2+; Tear Drop Cells Few
[2018-08-31 06:14] LABS: Platelet Estimate Increased; Polychromasia 1+
[2018-08-31 06:15] LABS: Howell-Jolly Bodies Slight
[2018-08-31] MEDS: FOLIC ACID 1 MG TABLET PO SCH (09:36)
[2018-08-31] MEDS: LACTULOSE 20 GM/30 ML UDCUP PO PRN ×2 (09:36→18:13)
[2018-08-31] MEDS: oxyCODONE/ACETAMINOPHEN 5-325 MG TABLET PO SCH ×4 (09:36→22:53)
[2018-08-31] MEDS: LIDOCAINE 5% PATCH TRANSDERM SCH (15:21)
[2018-08-31] MEDS: ENOXAPARIN 40 MG/0.4 ML SYRINGE SUBCUT SCH (20:55)
[2018-09-01] MEDS: HYDROmorphone 2 MG/1 ML VIAL IV PRN ×5 (03:08→21:33)
[2018-09-01] MEDS: SODIUM CHLORIDE 0.9% 1,000 ML IV SCH ×2 (03:14→12:11)
[2018-09-01] MEDS: oxyCODONE/ACETAMINOPHEN 5-325 MG TABLET PO SCH ×4 (04:26→19:40)
[2018-09-01] MEDS: FOLIC ACID 1 MG TABLET PO SCH (09:11)
[2018-09-01] MEDS: LIDOCAINE 5% PATCH TRANSDERM SCH (09:12)
[2018-09-01] MEDS: GLUTAMINE 5 GM PO SCH ×3 (09:15→21:41)
[2018-09-01] MEDS ORDERED: hydrOXYzine HCL 25 MG TABLET PO ONE (11:00)
[2018-09-01] MEDS ORDERED: ACETAMINOPHEN 500 MG TABLET PO ONE (11:00)
[2018-09-01] MEDS ORDERED: methylPREDNISolone SOD SUC 125 MG/2 ML VIAL IV ONE (11:00)
[2018-09-01] MEDS: ENOXAPARIN 40 MG/0.4 ML SYRINGE SUBCUT SCH (21:32)
[2018-09-02] MEDS: oxyCODONE/ACETAMINOPHEN 5-325 MG TABLET PO SCH ×4 (01:42→20:53)
[2018-09-02] MEDS: HYDROmorphone 2 MG/1 ML VIAL IV PRN ×6 (02:42→22:31)
[2018-09-02 02:51] LABS: Hematocrit 29.1 VOL% (35.7-47.0); Hemoglobin 9.9 GM/DL (12.0-16.0)
[2018-09-02] MEDS: SODIUM CHLORIDE 0.9% 1,000 ML IV SCH ×3 (08:18→20:56)
[2018-09-02] MEDS: FOLIC ACID 1 MG TABLET PO SCH (08:21)
[2018-09-02] MEDS: GLUTAMINE 5 GM PO SCH ×3 (08:23→20:57)
[2018-09-02] MEDS: LACTULOSE 20 GM/30 ML UDCUP PO PRN ×2 (08:57→21:41)
[2018-09-02] MEDS: LIDOCAINE 5% PATCH TRANSDERM SCH (09:35)
[2018-09-02] MEDS ORDERED: oxyCODONE/ACETAMINOPHEN 5-325 MG TABLET PO ONE (10:30)
[2018-09-02] MEDS: ENOXAPARIN 40 MG/0.4 ML SYRINGE SUBCUT SCH (20:54)
[2018-09-03] MEDS: oxyCODONE/ACETAMINOPHEN 5-325 MG TABLET PO SCH ×2 (02:54→09:31)
[2018-09-03] MEDS: HYDROmorphone 2 MG/1 ML VIAL IV PRN ×3 (03:55→12:01)
[2018-09-03 05:42] LABS: Basophils # 0.2 10*3/uL (0.0-0.2); Eosinophils # 0.4 10*3/uL (0.0-0.87); Eosinophils % 1.8 % (0.00-10.9); Hematocrit 28.7 VOL% (35.7-47.0); Hemoglobin 9.6 GM/DL (12.0-16.0); Immature Granulocytes % 0.4 %; Immature Granulocytes Absolute 0.09 #; Lymphocytes # 9.5 10*3/uL (1.4-4.0); Lymphocytes % 43.1 % (21.3-54.2); Mean Corpuscular HGB Conc 33.4 GM/DL (32-36); Mean Corpuscular Hemoglobin 30 PG (27-34); Mean Corpuscular Volume 88.9 FL (87-102); Mean Platelet Volume 10.2 FL (9.6-12.0); Monocytes # 1.5 10*3/uL (0.11-0.8); Monocytes % 6.9 % (1.7-12.7); NRBC # 0.44 10*3/uL; Neutrophils # 10.3 10*3/uL (1.4-7.4); Neutrophils % 46.8 % (38.7-73.9); Platelet Count 464 T/CUMM (130-400); Red Blood Count 3.23 MC/CUMM (3.8-5.5); Red Cell Distribution Width 21.7 % (9.3-17.3); White Blood Count 21.9 T/CUMM (4-12)
[2018-09-03 05:58] LABS: Albumin 2.7 G/DL (3.4-5.0); Bilirubin,Total 5.6 MG/DL (0.2-1.0); Calcium 8.8 MG/DL (8.5-10.1); Osmolality,Calculated 280.1 MOS/KG (273-304); Total Protein 6.5 G/DL (6.4-8.3)
[2018-09-03 06:23] LABS: Eosinophils 3 % (0-10); Howell-Jolly Bodies Slight; Hypochromasia 2+; Lymphocytes 41 % (20-55); Macrocytosis Slight; Nucleated Red Blood Cells 6 (0-5); Pappenheimer Bodies Slight; Platelet Estimate Adequate; Polychromasia Slight; Segmented Neutrophils 48 % (50-85); Total Cells Counted 100
[2018-09-03 06:24] LABS: Elliptocytes Few; Sickle Cells 1+; Target Cells Few
[2018-09-03] MEDS: FOLIC ACID 1 MG TABLET PO SCH (08:00)
[2018-09-03] MEDS: GLUTAMINE 5 GM PO SCH (08:00)
[2018-09-03] MEDS: LIDOCAINE 5% PATCH TRANSDERM SCH (08:05)
[2018-09-03] MEDS: LACTULOSE 20 GM/30 ML UDCUP PO PRN (08:05)
[2018-09-03] MEDS: SODIUM CHLORIDE 0.9% 1,000 ML IV SCH (09:33)
[2018-09-03] MEDS ORDERED: KETOROLAC 30 MG/1 ML VIAL IV ONE (10:00)
[2018-09-03] MEDS ORDERED: METAXALONE 800 MG TABLET PO SCH (10:00)
[2018-09-03 12:07] VITALS: BP 119/73
== END 2018-09-03 12:30 | disposition home or self-care (01) | DRG 812 ==
LOC: N.ED 11:36 → SUATTDRO 14:39 → N.EDINP 14:39 → N.2E 15:25
PROVIDERS: ADMIT Hospitalist; ATTEND Internal Medicine

== ENCOUNTER 2018-09-23 18:49 | Inpatient (IN) ==
[2018-09-23] MEDS ORDERED: METOCLOPRAMIDE 10 MG/2 ML VIAL IV STA (20:15)
[2018-09-23] MEDS ORDERED: fentaNYL 100 MCG/2 ML VIAL IV STA ×2 (20:15→21:51)
[2018-09-23] MEDS ORDERED: SODIUM CHLORIDE 0.9% 1,000 ML IV STA (20:15)
[2018-09-23 21:13] LABS: Basophils # 0.2 10*3/uL (0.0-0.2); Basophils % 0.9 % (0.0-0.8); Eosinophils # 0.4 10*3/uL (0.0-0.87); Eosinophils % 1.8 % (0.00-10.9); Hematocrit 20.3 VOL% (35.7-47.0); Hemoglobin 6.7 GM/DL (12.0-16.0); Immature Granulocytes % 0.5 %; Immature Granulocytes Absolute 0.11 #; Lymphocytes # 8.4 10*3/uL (1.4-4.0); Mean Corpuscular Volume 93.5 FL (87-102); Monocytes % 7.6 % (1.7-12.7); NRBC # 0.21 10*3/uL; Neutrophils % 54.2 % (38.7-73.9); Platelet Count 635 T/CUMM (130-400); Red Blood Count 2.17 MC/CUMM (3.8-5.5); Red Cell Distribution Width 20.6 % (9.3-17.3); White Blood Count 24.1 T/CUMM (4-12)
[2018-09-23 21:32] LABS: PT Patient Result 11.1 SECS; Partial Thromboplastin Time 23.6 SECS (0-40)
[2018-09-23 21:33] LABS: Eosinophils 1 % (0-10); Lymphocytes 38 % (20-55); Segmented Neutrophils 52 % (50-85); Total Cells Counted 100
[2018-09-23 21:34] LABS: Polychromasia 1+; Schistocytes 1+; Sickle Cells 2+
[2018-09-23 21:35] LABS: Anisocytosis 1+; Microcytosis 1+; Poikilocytosis 2+; Reactive Lymphocytes 1+; Target Cells 1+
[2018-09-23 21:36] LABS: Albumin 3.7 G/DL (3.4-5.0); Bilirubin,Total 4.4 MG/DL (0.2-1.0); Calcium 8.7 MG/DL (8.5-10.1); Osmolality,Calculated 277.3 MOS/KG (273-304); Platelet Estimate Increased; Total Protein 7.4 G/DL (6.4-8.3)
[2018-09-23 22:03] LABS: Apearance,Urine Slightly Hazy (Clear); Bacteria,Urine Occasional /HPF (Few); Bilirubin,Urine Negative (Negative); Blood, Urine Negative (Negative); Glucose,Urine (UA) Negative (Negative); Ketones,Urine Negative (Negative); Mucus,Urine Occasional /LPF (Occasional); Nitrite,Urine Negative (Negative); Protein,Urine Negative; RBC,Urine 1 /HPF (0-4); Squamous Epithelial Cell,Urine Occasional /HPF (0-10); Urine Color Yellow (Yellow); Urine Specific Gravity 1.012 (1.001-1.035); Urine Urobilinogen < 2.0 EU/DL (0.2-1.0); WBC,Urine 2 /HPF (0-6)
[2018-09-23] MEDS ORDERED: ONDANSETRON 4 MG/2 ML VIAL IV PRN (22:41)
[2018-09-23] MEDS ORDERED: ENOXAPARIN 40 MG/0.4 ML SYRINGE SUBCUT SCH (23:00)
[2018-09-23] MEDS ORDERED: SODIUM CHLORIDE 0.9% 1,000 ML IV SCH (23:00)
[2018-09-23] MEDS: HYDROmorphone 2 MG/1 ML VIAL IV PRN (23:42)
[2018-09-23] MEDS: SODIUM CHLORIDE 0.9% 1,000 ML IV SCH (23:43)
[2018-09-23] MEDS: ENOXAPARIN 40 MG/0.4 ML SYRINGE SUBCUT SCH (23:48)
[2018-09-24] MEDS: oxyCODONE/ACETAMINOPHEN 5-325 MG TABLET PO SCH ×5 (00:12→17:53)
[2018-09-24 01:36] LABS: Barbiturates Screen,Urine Negative (Negative); Benzodiazepines Screen,Urine Negative (Negative); Cannabinoid Screen,Urine Positive (Negative); Opiate Screen,Urine Negative (Negative); Phencyclidine Screen,Urine Negative (Negative)
[2018-09-24] MEDS: HYDROmorphone 2 MG/1 ML VIAL IV PRN ×7 (02:40→23:12)
[2018-09-24 07:00] LABS: Basophils # 0.1 10*3/uL (0.0-0.2); Basophils % 0.6 % (0.0-0.8); Eosinophils # 0.5 10*3/uL (0.0-0.87); Immature Granulocytes % 0.4 %; Immature Granulocytes Absolute 0.09 #; Lymphocytes # 12.4 10*3/uL (1.4-4.0); Lymphocytes % 52.6 % (21.3-54.2); Mean Corpuscular HGB Conc 32.7 GM/DL (32-36); Mean Corpuscular Volume 93.4 FL (87-102); Mean Platelet Volume 10.3 FL (9.6-12.0); Monocytes % 7.6 % (1.7-12.7); Neutrophils % 36.8 % (38.7-73.9); Platelet Count 504 T/CUMM (130-400); Red Blood Count 1.83 MC/CUMM (3.8-5.5); Red Cell Distribution Width 19.9 % (9.3-17.3); White Blood Count 23.5 T/CUMM (4-12)
[2018-09-24 07:23] LABS: Hematocrit 17.1 VOL% (35.7-47.0); Hemoglobin 5.6 GM/DL (12.0-16.0)
[2018-09-24] MEDS ORDERED: SODIUM CHLORIDE 0.9% 1,000 ML IV PRN (07:38)
[2018-09-24 07:57] LABS: Anisocytosis 2+; Eosinophils 2 % (0-10); Lymphocytes 54 % (20-55); Platelet Estimate Increased; Polychromasia 1+; Segmented Neutrophils 37 % (50-85); Smudge Cells Few; Total Cells Counted 100
[2018-09-24 07:59] LABS: Schistocytes 2+
[2018-09-24] MEDS: SODIUM CHLORIDE 0.9% 1,000 ML IV SCH ×2 (09:28→20:29)
[2018-09-24] MEDS ORDERED: PROMETHAZINE 25 MG/1 ML VIAL IM PRN (10:55)
[2018-09-24] MEDS ORDERED: GLUTAMINE 5 GM PO SCH (15:00)
[2018-09-24] MEDS: CYCLOBENZAPRINE 10 MG TABLET PO SCH (20:19)
[2018-09-24] MEDS: ENOXAPARIN 40 MG/0.4 ML SYRINGE SUBCUT SCH (22:48)
[2018-09-25] MEDS: oxyCODONE/ACETAMINOPHEN 5-325 MG TABLET PO SCH ×5 (00:04→22:22)
[2018-09-25] MEDS: HYDROmorphone 2 MG/1 ML VIAL IV PRN ×7 (02:29→23:19)
[2018-09-25 05:13] LABS: Basophils # 0.1 10*3/uL (0.0-0.2); Basophils % 0.6 % (0.0-0.8); Eosinophils # 0.7 10*3/uL (0.0-0.87); Immature Granulocytes % 0.6 %; Immature Granulocytes Absolute 0.13 #; Lymphocytes # 11.3 10*3/uL (1.4-4.0); Mean Corpuscular HGB Conc 32.4 GM/DL (32-36); Mean Platelet Volume 10.6 FL (9.6-12.0); Monocytes % 8.3 % (1.7-12.7); NRBC # 0.08 10*3/uL; Neutrophils % 38.5 % (38.7-73.9); Platelet Count 506 T/CUMM (130-400); Red Blood Count 1.84 MC/CUMM (3.8-5.5); Red Cell Distribution Width 19.3 % (9.3-17.3)
[2018-09-25 05:15] LABS: Hematocrit 17.3 VOL% (35.7-47.0)
[2018-09-25 05:16] LABS: Hemoglobin 5.6 GM/DL (12.0-16.0)
[2018-09-25 05:42] LABS: Albumin 3.1 G/DL (3.4-5.0); Bilirubin,Total 3.8 MG/DL (0.2-1.0); Calcium 8.1 MG/DL (8.5-10.1); Osmolality,Calculated 276.4 MOS/KG (273-304); Total Protein 6.3 G/DL (6.4-8.3)
[2018-09-25 06:09] LABS: Eosinophils 6 % (0-10); Lymphocytes 57 % (20-55); Platelet Estimate Increased; Segmented Neutrophils 36 % (50-85); Total Cells Counted 100
[2018-09-25 06:10] LABS: Hypochromasia 1+; Microcytosis 1+; Polychromasia Few; Sickle Cells 1+; Target Cells Few
[2018-09-25] MEDS: SODIUM CHLORIDE 0.9% 1,000 ML IV SCH (08:50)
[2018-09-25] MEDS: FOLIC ACID 1 MG TABLET PO SCH (09:05)
[2018-09-25] MEDS: CYCLOBENZAPRINE 10 MG TABLET PO SCH ×2 (09:05→22:22)
[2018-09-25] MEDS: LIDOCAINE 5% PATCH TRANSDERM SCH (09:06)
[2018-09-25] MEDS ORDERED: ACETAMINOPHEN 325 MG TABLET PO ONE (11:02)
[2018-09-25] MEDS ORDERED: hydrOXYzine HCL 25 MG TABLET PO ONE (11:03)
[2018-09-25] MEDS ORDERED: methylPREDNISolone SOD SUC 125 MG/2 ML VIAL IV ONE (11:04)
[2018-09-25] MEDS: ENOXAPARIN 40 MG/0.4 ML SYRINGE SUBCUT SCH (22:22)
[2018-09-26] MEDS: HYDROmorphone 2 MG/1 ML VIAL IV PRN ×7 (02:34→22:33)
[2018-09-26] MEDS: oxyCODONE/ACETAMINOPHEN 5-325 MG TABLET PO PRN ×3 (04:17→18:37)
[2018-09-26 06:15] LABS: Basophils # 0.1 10*3/uL (0.0-0.2); Basophils % 0.4 % (0.0-0.8); Eosinophils # 0.1 10*3/uL (0.0-0.87); Eosinophils % 0.4 % (0.00-10.9); Hematocrit 27.6 VOL% (35.7-47.0); Hemoglobin 9.2 GM/DL (12.0-16.0); Immature Granulocytes % 0.5 %; Immature Granulocytes Absolute 0.08 #; Lymphocytes # 6.4 10*3/uL (1.4-4.0); Lymphocytes % 40.2 % (21.3-54.2); Mean Corpuscular HGB Conc 33.3 GM/DL (32-36); Mean Corpuscular Volume 88.2 FL (87-102); Mean Platelet Volume 9.7 FL (9.6-12.0); Monocytes % 12.4 % (1.7-12.7); NRBC # 0.08 10*3/uL; Neutrophils % 46.1 % (38.7-73.9); Platelet Count 447 T/CUMM (130-400); Red Blood Count 3.13 MC/CUMM (3.8-5.5)
[2018-09-26] MEDS: SODIUM CHLORIDE 0.9% 1,000 ML IV SCH (06:15)
[2018-09-26] MEDS: CYCLOBENZAPRINE 10 MG TABLET PO SCH ×2 (08:48→20:51)
[2018-09-26] MEDS: LIDOCAINE 5% PATCH TRANSDERM SCH (08:48)
[2018-09-26] MEDS: FOLIC ACID 1 MG TABLET PO SCH (08:56)
[2018-09-26] MEDS: AZITHROMYCIN 250 MG TABLET PO SCH (12:47)
[2018-09-26] MEDS: ENOXAPARIN 40 MG/0.4 ML SYRINGE SUBCUT SCH (22:34)
[2018-09-27] MEDS: oxyCODONE/ACETAMINOPHEN 5-325 MG TABLET PO PRN (00:37)
[2018-09-27] MEDS: HYDROmorphone 2 MG/1 ML VIAL IV PRN ×2 (04:59→09:04)
[2018-09-27 05:55] VITALS: BP 120/89
[2018-09-27] MEDS: AZITHROMYCIN 250 MG TABLET PO SCH (08:37)
[2018-09-27] MEDS: FOLIC ACID 1 MG TABLET PO SCH (08:38)
[2018-09-27] MEDS: CYCLOBENZAPRINE 10 MG TABLET PO SCH (08:38)
[2018-09-27] MEDS: LIDOCAINE 5% PATCH TRANSDERM SCH (08:38)
== END 2018-09-27 11:35 | disposition home or self-care (01) | DRG 812 ==
LOC: N.ED 18:49 → N.EDINP 22:40 → N.5E 23:12
PROVIDERS: ADMIT Internal Medicine; ATTEND Internal Medicine

== ENCOUNTER 2019-01-10 02:11 | Inpatient (IN) ==
[2019-01-10] MEDS ORDERED: SODIUM CHLORIDE 0.9% 1,000 ML IV STA (02:25)
[2019-01-10] MEDS ORDERED: HYDROmorphone 2 MG/1 ML VIAL IV STA ×2 (02:33→03:46)
[2019-01-10] MEDS ORDERED: METOCLOPRAMIDE 10 MG/2 ML VIAL IV STA (02:34)
[2019-01-10 02:56] LABS: Basophils # 0.2 10*3/uL (0.0-0.2); Basophils % 0.9 % (0.0-0.8); Eosinophils # 0.4 10*3/uL (0.0-0.87); Eosinophils % 1.9 % (0.00-10.9); Immature Granulocytes % 0.5 %; Lymphocytes % 40.2 % (21.3-54.2); Mean Corpuscular HGB Conc 36.2 GM/DL (32-36); Mean Corpuscular Volume 93.1 FL (87-102); Mean Platelet Volume 9.9 FL (9.6-12.0); Monocytes % 11.2 % (1.7-12.7); NRBC # 0.23 10*3/uL; Neutrophils % 45.3 % (38.7-73.9); Platelet Count 577 T/CUMM (130-400); Red Cell Distribution Width 21.1 % (9.3-17.3); White Blood Count 19.8 T/CUMM (4-12)
[2019-01-10 02:59] LABS: Hemoglobin 5.4 GM/DL (12.0-16.0)
[2019-01-10 03:00] LABS: Hematocrit 14.9 VOL% (35.7-47.0)
[2019-01-10 03:18] LABS: Albumin 3.5 G/DL (3.4-5.0); Bilirubin,Total 6.5 MG/DL (0.2-1.0); Calcium 8.7 MG/DL (8.5-10.1); Osmolality,Calculated 280.4 MOS/KG (273-304); Total Protein 7.3 G/DL (6.4-8.3)
[2019-01-10 04:04] LABS: Anisocytosis 2+; Band Neutrophils 1 % (0-10); Eosinophils 1 % (0-10); Hypochromasia 2+; Lymphocytes 42 % (20-55); Macrocytosis 1+; Microcytosis 2+; Nucleated Red Blood Cells 9 (0-5); Ovalocytes 2+; Polychromasia 1+; Segmented Neutrophils 54 % (50-85); Sickle Cells 2+; Smudge Cells 1+; Target Cells 2+; Total Cells Counted 100
[2019-01-10 04:05] LABS: Platelet Estimate Increased
[2019-01-10] MEDS ORDERED: NICOTINE 21 MG/24 HR PATCH TRANSDERM PRN (04:14)
[2019-01-10] MEDS ORDERED: PROMETHAZINE 25 MG/1 ML VIAL IM PRN (04:14)
[2019-01-10] MEDS ORDERED: SODIUM CHLORIDE 0.9% 1,000 ML IV PRN (04:14)
[2019-01-10] MEDS: HYDROmorphone 2 MG/1 ML VIAL IV PRN ×7 (05:10→23:03)
[2019-01-10] MEDS: SODIUM CHLORIDE 0.9% 1,000 ML IV SCH (05:20)
[2019-01-10] MEDS ORDERED: HYDROmorphone 2 MG/1 ML VIAL IV ONE (10:30)
[2019-01-10] MEDS ORDERED: ACETAMINOPHEN 325 MG TABLET PO ONE (10:31)
[2019-01-10] MEDS ORDERED: methylPREDNISolone SOD SUC 40 MG/1 ML VIAL IV ONE (10:31)
[2019-01-10] MEDS ORDERED: hydrOXYzine HCL 25 MG TABLET PO ONE (10:32)
[2019-01-10 19:13] LABS: Hematocrit 25.6 VOL% (35.7-47.0); Hemoglobin 8.8 GM/DL (12.0-16.0)
[2019-01-10] MEDS ORDERED: PROMETHAZINE 25 MG TABLET PO PRN (20:16)
[2019-01-10] MEDS: KETOROLAC 30 MG/1 ML VIAL IV PRN (20:34)
[2019-01-11] MEDS: SODIUM CHLORIDE 0.9% 1,000 ML IV SCH ×5 (02:14→22:25)
[2019-01-11] MEDS: HYDROmorphone 2 MG/1 ML VIAL IV PRN ×7 (02:16→22:13)
[2019-01-11] MEDS: FOLIC ACID 1 MG TABLET PO SCH (11:25)
[2019-01-11] MEDS: oxyCODONE/ACETAMINOPHEN 5-325 MG TABLET PO PRN ×2 (11:25→21:06)
[2019-01-11] MEDS: XTAMPZA PO SCH ×2 (11:27→22:07)
[2019-01-11] MEDS: POLYETHYLENE GLYCOL POWDER 17 GM PACK PO SCH (11:27)
[2019-01-11] MEDS: KETOROLAC 30 MG/1 ML VIAL IV PRN ×2 (11:29→21:13)
[2019-01-11] MEDS: [UNRECOGNIZED DRUG - OTHER] PO SCH ×2 (15:11→22:06)
[2019-01-12] MEDS: HYDROmorphone 2 MG/1 ML VIAL IV PRN ×7 (03:13→23:25)
[2019-01-12] MEDS: KETOROLAC 30 MG/1 ML VIAL IV PRN ×3 (05:39→18:05)
[2019-01-12] MEDS: oxyCODONE/ACETAMINOPHEN 5-325 MG TABLET PO PRN ×3 (05:41→18:07)
[2019-01-12 05:48] LABS: Basophils # 0.2 10*3/uL (0.0-0.2); Eosinophils # 0.3 10*3/uL (0.0-0.87); Eosinophils % 1.4 % (0.00-10.9); Hematocrit 23.1 VOL% (35.7-47.0); Hemoglobin 7.9 GM/DL (12.0-16.0); Immature Granulocytes % 0.4 %; Immature Granulocytes Absolute 0.08 #; Lymphocytes # 10.2 10*3/uL (1.4-4.0); Lymphocytes % 46.2 % (21.3-54.2); Mean Corpuscular HGB Conc 34.2 GM/DL (32-36); Mean Corpuscular Volume 92.4 FL (87-102); Mean Platelet Volume 10.3 FL (9.6-12.0); Monocytes % 7.9 % (1.7-12.7); NRBC # 0.08 10*3/uL; Neutrophils % 43.1 % (38.7-73.9); Platelet Count 492 T/CUMM (130-400); Red Cell Distribution Width 20.4 % (9.3-17.3); White Blood Count 22.1 T/CUMM (4-12)
[2019-01-12 06:05] LABS: Calcium 8.6 MG/DL (8.5-10.1); Osmolality,Calculated 290.6 MOS/KG (273-304)
[2019-01-12 06:11] LABS: Anisocytosis 3+; Macrocytosis 2+; Microcytosis 1+; Platelet Estimate Increased; Sickle Cells 3+
[2019-01-12 06:12] LABS: Howell-Jolly Bodies Few; Hypochromasia 2+; Pappenheimer Bodies Few
[2019-01-12 06:13] LABS: Acanthocytes Few; Elliptocytes 2+; Ovalocytes Few; Poikilocytosis 3+; Polychromasia Few; Target Cells 2+
[2019-01-12] MEDS: FOLIC ACID 1 MG TABLET PO SCH (10:20)
[2019-01-12] MEDS: POLYETHYLENE GLYCOL POWDER 17 GM PACK PO SCH (10:20)
[2019-01-12] MEDS: [UNRECOGNIZED DRUG - OTHER] PO SCH ×2 (11:14→21:00)
[2019-01-12] MEDS: XTAMPZA PO SCH ×2 (11:15→21:00)
[2019-01-13] MEDS: oxyCODONE/ACETAMINOPHEN 5-325 MG TABLET PO PRN ×3 (00:59→13:32)
[2019-01-13] MEDS: KETOROLAC 30 MG/1 ML VIAL IV PRN ×3 (00:59→13:32)
[2019-01-13] MEDS: SODIUM CHLORIDE 0.9% 1,000 ML IV SCH ×3 (04:08→11:20)
[2019-01-13] MEDS: HYDROmorphone 2 MG/1 ML VIAL IV PRN ×4 (04:20→13:02)
[2019-01-13] MEDS: [UNRECOGNIZED DRUG - OTHER] PO SCH ×2 (07:24→09:58)
[2019-01-13] MEDS ORDERED: LACTULOSE 20 GM/30 ML UDCUP PO ONE (09:49)
[2019-01-13] MEDS: POLYETHYLENE GLYCOL POWDER 17 GM PACK PO SCH (09:57)
[2019-01-13] MEDS: FOLIC ACID 1 MG TABLET PO SCH (09:57)
[2019-01-13] MEDS: XTAMPZA PO SCH (09:58)
[2019-01-13 11:52] VITALS: BP 115/79
== END 2019-01-13 15:32 | disposition home or self-care (01) | DRG 812 ==
LOC: N.ED 02:11 → N.EDINP 02:11 → SUATTDRO 04:14 → N.4E 04:44 → SUATTDRO 01-11 14:43
PROVIDERS: ADMIT Internal Medicine; ATTEND Family Medicine